=== PATIENT | female | born 1955 ===

== ENCOUNTER 2017-05-21 09:02 | Day surgery (SDC) | payer MEDICARE, OTHER ==
[2017-05-17 09:11] VITALS: BMI 28.1
[2017-05-21] MEDS ORDERED: LIDOCAINE 1% 20 ML VIAL (10MG/ML) FOR IV START INTRADERMA ONE (09:25)
[2017-05-21] MEDS ORDERED: LACTATED RINGERS 1,000 ML IV SCH (09:30)
[2017-05-21 09:44] VITALS: RESP 16; TEMP 98.2
--- NOTE | 2017-05-21 10:14 | P.PCN ---
Date of Procedure: 05/21/17 Preoperative Diagnosis: Postoperative Diagnosis: Procedure(s) Performed: Implants: Surgeon: Alfonso Matias Pathology: none sent Condition: stable Disposition: PACU Indications for Procedure: Operative Findings: Description of Procedure: PREOPERATIVE DIAGNOSIS: 1-rule out multiple sclerosis POSTOPERATIVE DIAGNOSIS: same PROCEDURE 1. Diagnostic lumbar puncture ANESTHESIA: Local with 1% lidocaine; conscious sedation with Versed only EBL: Minimal PROCEDURE INDICATION: The patient with persistent lower extremity weakness due to presumed demyelinating disease who presents for diagnostic LP as ordered by Dr. Hendricks. Patient uses Plavix and cilostazol for PVD, and has been off both for 9 (nine) days. PROCEDURE DESCRIPTION / TECHNIQUE: The patient was seen and identified in the preoperative area. Risks, benefits, complications, and alternatives were discussed with the patient, including but not limited to bleeding, infection, nerve damage, allergic reactions to medications, and spinal headache. The patient agreed to proceed with the procedure and signed the consent after all questions were answered. Vital signs were stable. Patient was taken to the procedure room and time out was completed to confirm patient position, procedure, area of pain, and allergies. The patient was placed in the lateral decubitus (semi-) position on procedure table with help from nursing staff. The lumbosacral area was prepped and draped in the usual sterile fashion. Vital signs were closely monitored during the procedure. After localization with 1% lidocaine, a 22-gauge 3.5-inch spinal needle was placed in the L2-L3 interspace. Stylet was removed and clear cerebrospinal fluid was obtained. 14 ml CSF was removed and put into four tubes. COMPLICATIONS: None COMMENTS: None DISPOSITION / PLANS: The patient was placed in a supine position and transferred to the recovery area in a stable condition for observation. There was no evidence of lower extremity motor or sensory deficit after the procedure. Patient was discharged from the recovery room after meeting discharge criteria. Home discharge instructions were given to the patient by the staff. The patient was reexamined prior to discharge and there were no issues. The patient will follow up with her neurologist as scheduled.
[2017-05-21] MEDS ORDERED: IV FLUID CONTINUATION 1,000 ML IV ONE (10:20)
[2017-05-21 11:06] LABS: Appearance,CSF Clear
[2017-05-21 11:14] LABS: Glucose,CSF 56 mg/dL (40-70)
[2017-05-21 11:58] LABS: ALT 27 U/L (9-52); AST 18 U/L (14-36)
[2017-05-21 11:59] VITALS: BP 157/73; PULSE 72
[2017-05-21 12:01] LABS: Rheumatoid Factor, Qnt <9 IU/mL (<12)
[2017-05-21 15:39] LABS: Treponemal Ab Non-Reactive (Non-Reactive)
[2017-05-21 16:12] LABS: ANA w/Reflex to Titer NEGATIVE (NEGATIVE); RNP AB Interpretation NEGATIVE (NEGATIVE)
[2017-05-22 10:09] LABS: Lyme IgG/IgM Interp NEGATIVE (NEGATIVE)
== END 2017-05-21 12:10 | disposition home or self-care (01) ==
LOC: ORPAIN 09:02
PROVIDERS: ATTEND Anesthesiology
DX: R53.1 Weakness (principal); I73.9 Peripheral vascular disease, unspecified; Z79.02 Long term (current) use of antithrombotics/antiplatelets; Z79.82 Long term (current) use of aspirin; Z79.891 Long term (current) use of opiate analgesic; Z79.899 Other long term (current) drug therapy; Z88.8 Allergy status to other drugs, medicaments and biological substances; Z91.041 Radiographic dye allergy status
CPT/HCPCS: 87476; 86592; 86235 ×3; 84439; 88108; 84157; 82945; 82040; 82042; 82784; 83916; 82164 ×2; 83873; 84443; 84450; 84460; 85730; 86431; 85613; 89050; 86618; 86780; 86038; 86225; 62270; J2250

== ENCOUNTER 2017-12-10 01:24 | Inpatient (IN) | payer MEDICARE ==
[2017-12-10] MEDS ORDERED: SODIUM CHLORIDE 0.9% 1,000 ML IV STA ×2 (01:39→02:07)
[2017-12-10] MEDS ORDERED: HYDROmorphone 0.5 MG/0.5 ML SYRINGE IVP STA (01:39)
[2017-12-10] MEDS ORDERED: ONDANSETRON 4 MG/2 ML VIAL IVP STA (01:39)
[2017-12-10] MEDS ORDERED: PIPERACILLIN-TAZOBACTAM 3.375 GM in DEXTROSE/WATER 1 50ML.BAG IVPB STA (01:43)
[2017-12-10] MEDS ORDERED: ACETAMINOPHEN IV (For NPO) 1,000 MG in EMPTY BAG 1 BAG IVPB STA (01:43)
[2017-12-10] MEDS ORDERED: metroNIDAZOLE-NS PMX 500 MG in SALINE 1 100ML.BAG IVPB STA (01:43)
--- NOTE | 2017-12-10 01:47 | ED ---
General Adult HPI - General Source: patient, family, EMS, RN notes reviewed Mode of arrival: EMS Limitations: no limitations <Gini Webber - Last Filed: 12/10/17 03:01> <Baltazar Cabrera - Last Filed: 12/11/17 03:50> - General Chief complaint: Nausea/Vomiting/Diarrhea Stated complaint: NVD Time Seen by Provider: 12/10/17 01:35 - History of Present Illness Initial comments: 62-year-old female presents to the emergency department with a chief complaint of nausea and vomiting and weakness on the abdomen. She states she's been nausea vomiting for the last 4 days or so. She states that then today she noticed that she started to develop some drainage from the abdomen. She states it's around the surgical incision site. She states it has stool-like smell. She states that she's had multiple surgeries on the abdomen but she does not know where and she does not know her surgeon is. She denies any high fevers at home. She denies any chest pain or shortness of breath. She states she became concerned when the area started to drain so she thought that she should be seen. Patient denies any other areas of concern. She denies any changes in urination. Patient denies any recent fever, chills, shortness of breath, chest pain, back pain, numbness or tingling, dysuria or hematuria, constipation or diarrhea, headaches or visual changes, or any other current symptoms. (Gini Webber) - Related Data Home Medications Medication Instructions Recorded Confirmed Sertraline HCl [Zoloft] 200 mg PO DAILY 10/11/15 12/10/17 Cholecalciferol [Vitamin D3] 2,000 unit PO DAILY 02/07/16 12/10/17 Metoprolol Tartrate [Lopressor] 50 mg PO BID 08/14/16 12/10/17 Cyanocobalamin [Vitamin B-12] 1,000 mcg PO DAILY 08/17/16 12/10/17 Aspirin [Adult Low Dose Aspirin EC] 162 mg PO DAILY 05/17/17 12/10/17 Crestor (Unknown Dose) 1 tab PO QAM 05/17/17 12/10/17 HYDROcodone/APAP 10-325MG [[place] 1 tab PO Q6H PRN 05/17/17 12/10/17 10-325] Clopidogrel [Plavix] 75 mg PO DAILY 05/21/17 12/10/17 Baclofen [Lioresal] 10 mg PO QID PRN 12/10/17 12/10/17 Cetirizine HCl [Zyrtec] 10 mg PO DAILY PRN 12/10/17 12/10/17 Furosemide [Lasix] 40 mg PO DAILY PRN 12/10/17 12/10/17 Losartan Potassium [Cozaar] 100 mg PO DAILY 12/10/17 12/10/17 Pantoprazole Sodium [Protonix] 40 mg PO DAILY 12/10/17 12/10/17 amLODIPine [Norvasc] 2.5 mg PO DAILY 12/10/17 12/10/17 busPIRone HCl [Buspar] 10 mg PO BID 12/10/17 12/10/17 traZODone HCL 150 mg PO HS 12/10/17 12/10/17 Allergies Allergy/AdvReac Type Severity Reaction Status Date / Time Iodinated Contrast- Oral and Allergy Unknown Verified 12/10/17 07:50 IV Dye [Iodinated Contrast Media - IV Dye] bupropion HCl AdvReac Severe SEIZURE Verified 12/10/17 07:50 [From Wellbutrin] liothyronine sodium AdvReac Rapid Verified 12/10/17 07:50 [From Cytomel] Heart Rate prochlorperazine AdvReac TONGUE Verified 12/10/17 07:50 [From Compazine] SWELLING prochlorperazine edisylate AdvReac TONGUE Verified 12/10/17 07:50 [From Compazine] SWELLING prochlorperazine maleate AdvReac TONGUE Verified 12/10/17 07:50 [From Compazine] SWELLING Review of Systems ROS Other: All systems not noted in ROS Statement are negative. <Gini Webber - Last Filed: 12/10/17 03:01> ROS Other: All systems not noted in ROS Statement are negative. <Baltazar Cabrera - Last Filed: 12/11/17 03:50> ROS Statement: Those systems with pertinent positive or pertinent negative responses have been documented in the HPI. Past Medical History Past Medical History: Cancer, Chest Pain / Angina, COPD, Deep Vein Thrombosis ( DVT), Hyperlipidemia, Hypertension, Myocardial Infarction ([place]), Osteoarthritis ( OA), Vascular Disorder Additional Past Medical History / Comment(s): Hx L Breast Ca 2013-had lumpectomy / radiation, abscess in jaw area, had one time seizure yrs. ago related to a drug reaction, DVT 2 yrs. ago R leg, insomnia off and on. Peripheral Vascular Disease. Currently being tested for MS. Last Myocardial Infarction Date:: Jul 2015 History of Any Multi-Drug Resistant Organisms: None Reported Past Surgical History: Bowel Resection, Breast Surgery, Cholecystectomy, Heart Catheterization With Stent, Joint Replacement, Orthopedic Surgery Additional Past Surgical History / Comment(s): 02/24/16 PTCA mid and distal RCA. Other surgical hx: hemicolectomy due to polyp not able to be reached with colonoscopy, total R knee, open surgery to L knee, stent R lower extremity, right baby toe amputated. Past Anesthesia/Blood Transfusion Reactions: No Reported Reaction Additional Past Anesthesia/Blood Transfusion Reaction / Comment(s): States combative when woke up from anesthesia 1-2 X. Date of Last Stent Placement:: Jul 2015 Past Psychological History: Anxiety, Depression Smoking Status: Former smoker Past Alcohol Use History: None Reported Past Drug Use History: None Reported - Past Family History Father Family Medical History: Cancer Additional Family Medical History / Comment(s): Father is alive at age 81 with history of prostate cancer. Mother Family Medical History: Cancer Additional Family Medical History / Comment(s): Mother at age 63 and had multiple myeloma. <Gini Webber - Last Filed: 12/10/17 03:01> General Exam Limitations: no limitations <Gini Webber - Last Filed: 12/10/17 03:01> <Baltazar Cabrera - Last Filed: 12/11/17 03:50> - General Exam Comments Initial Comments: General: The patient is awake and alert, in no distress, and does not appear acutely ill. Eye: Pupils are equal, round. Ears, nose, mouth and throat: There are moist mucous membranes. Neck: The neck is supple, there is no tenderness. Cardiovascular: There is a regular rate and rhythm. No murmur, rub or gallop is appreciated. Respiratory: Lungs are clear to auscultation, respirations are non-labored, breath sounds are equal. No wheezes, stridor, rales, or rhonchi. Gastrointestinal: Distended abdomen that is diffusely tender with an area in the center of this. He appears to be a stool like output. No masses or organomegaly noted. There is no rebound or guarding present. No CVA tenderness. Back: There is no tenderness to palpation in the midline. There is no obvious deformity. No rashes noted. Musculoskeletal: Normal ROM, no tenderness, There is no pedal edema. There is no calf tenderness or swelling. Sensation intact. Pulses equal bilaterally 2+. Neurological: CN II-XII intact, There are no obvious motor or sensory deficits. Coordination appears grossly intact. Speech is normal. Skin: Skin is warm and dry and no rashes or lesions are noted. Psychiatric: Cooperative, appropriate mood & affect, normal judgment. (Gini Webber) Vital Signs 12/10/17 12/10/17 12/10/17 01:27 02:13 03:31 Temperature 100.4 F H 97.1 F L Pulse Rate 74 68 69 Respiratory 18 18 18 Rate Blood Pressure 117/56 128/61 119/57 O2 Sat by Pulse 95 97 97 Oximetry Medical Decision Making - Lab Data Result diagrams: 12/10/17 01:47 12/10/17 01:47 - Radiology Data Radiology results: report reviewed, image reviewed <Gini Webber - Last Filed: 12/10/17 03:01> - Lab Data Result diagrams: 12/10/17 01:47 12/10/17 20:30 <Balatzar Cabrera - Last Filed: 12/11/17 03:50> - Medical Decision Making 62-year-old female presents for nausea vomiting with it draining incision site to the abdomen. Patient is febrile at this time. Tylenol was ordered for the patient's fever. This time blood pressure is stable. Patient was placed on a monitor for continued care. This time CAT scan is reviewed that shows an abdominal wall abscess that does possibly extending into the peritoneal cavity. This time Dr. Betancourt was contacted by Dr. Dallas. At this time patient underwent continued opening of the area with some drainage antibiotics have been initiated. We'll admit the patient for Dr. Betancourt see in the morning. Patient is in agreement with this plan. (Gini Webber) I saw this patient in conjunction with the physician ex assistant/program director. I performed independent history and physical exam. Agree with case management. (Trachy, Baltazar) - Lab Data Lab Results 12/10/17 12/10/17 12/10/17 Range/Units 01:47 01:47 01:47 WBC 9.9 (3.8-10.6) k/uL RBC 4.45 (3.80-5.40) m/uL Hgb 13.9 (11.4-16.0) gm/dL Hct 40.2 (34.0-46.0) % MCV 90.3 (80.0-100.0) fL MCH 31.2 (25.0-35.0) pg MCHC 34.5 (31.0-37.0) g/dL RDW 12.8 (11.5-15.5) % Plt Count 115 L (150-450) k/uL Neutrophils % 86 % Lymphocytes % 6 % Monocytes % 6 % Eosinophils % 0 % Basophils % 0 % Neutrophils # 8.5 H (1.3-7.7) k/uL Lymphocytes # 0.6 L (1.0-4.8) k/uL Monocytes # 0.6 (0-1.0) k/uL Eosinophils # 0.0 (0-0.7) k/uL Basophils # 0.0 (0-0.2) k/uL ESR (0-20) mm/hr PT (9.0-12.0) sec INR (<1.2) APTT (22.0-30.0) sec Sodium 137 (137-145) mmol/L Potassium 3.2 L (3.5-5.1) mmol/L Chloride 101 (98-107) mmol/L Carbon Dioxide 24 (22-30) mmol/L Anion Gap 12 mmol/L BUN 18 H (7-17) mg/dL Creatinine 0.90 (0.52-1.04) mg/dL Est GFR (MDRD) Af Amer >60 (>60 ml/min/1.73 sqM) Est GFR (MDRD) Non-Af >60 (>60 ml/min/1.73 sqM) Glucose 129 H (74-99) mg/dL Plasma Lactic Acid Robert (0.7-2.0) mmol/L Calcium 9.0 (8.4-10.2) mg/dL Total Bilirubin 1.0 (0.2-1.3) mg/dL AST 18 (14-36) U/L ALT 22 (9-52) U/L Alkaline Phosphatase 123 (38-126) U/L Total Protein 6.4 (6.3-8.2) g/dL Albumin 3.2 L (3.5-5.0) g/dL Amylase 32 (30-110) U/L Lipase 87 (23-300) U/L Blood Type O Negative Blood Type Recheck No Antibody Screen NEGATIVE Spec Expiration Date 12/13/2017234612/10/17 12/10/17 12/10/17 Range/Units 01:47 01:47 01:47 WBC (3.8-10.6) k/uL RBC (3.80-5.40) m/uL Hgb (11.4-16.0) gm/dL Hct (34.0-46.0) % MCV (80.0-100.0) fL MCH (25.0-35.0) pg MCHC (31.0-37.0) g/dL RDW (11.5-15.5) % Plt Count (150-450) k/uL Neutrophils % % Lymphocytes % % Monocytes % % Eosinophils % % Basophils % % Neutrophils # (1.3-7.7) k/uL Lymphocytes # (1.0-4.8) k/uL Monocytes # (0-1.0) k/uL Eosinophils # (0-0.7) k/uL Basophils # (0-0.2) k/uL ESR 22 H (0-20) mm/hr PT 11.6 (9.0-12.0) sec INR 1.2 H (<1.2) APTT 22.1 (22.0-30.0) sec Sodium (137-145) mmol/L Potassium (3.5-5.1) mmol/L Chloride (98-107) mmol/L Carbon Dioxide (22-30) mmol/L Anion Gap mmol/L BUN (7-17) mg/dL Creatinine (0.52-1.04) mg/dL Est GFR (MDRD) Af Amer (>60 ml/min/1.73 sqM) Est GFR (MDRD) Non-Af (>60 ml/min/1.73 sqM) Glucose (74-99) mg/dL Plasma Lactic Acid Robert 1.0 (0.7-2.0) mmol/L Calcium (8.4-10.2) mg/dL Total Bilirubin (0.2-1.3) mg/dL AST (14-36) U/L ALT (9-52) U/L Alkaline Phosphatase (38-126) U/L Total Protein (6.3-8.2) g/dL Albumin (3.5-5.0) g/dL Amylase (30-110) U/L Lipase (23-300) U/L Blood Type Blood Type Recheck Antibody Screen Spec Expiration Date Disposition Decision Date: 12/10/17 Decision Time: 03:02 <Gini Webber - Last Filed: 12/10/17 03:01> <Baltazar Cabrera - Last Filed: 12/11/17 03:50> Clinical Impression: Abdominal wall abscess at site of surgical wound, Nausea & vomiting Disposition: ADMITTED IP TO THIS HOSP Condition: Stable
[2017-12-10 02:04] LABS: Basophils % (A) 0 %; Eosinophils % (A) 0 %; HCT 40.2 % (34.0-46.0); HGB 13.9 gm/dL (11.4-16.0); Lymphocytes # (A) 0.6 k/uL (1.0-4.8); Lymphocytes % (A) 6 %; MCH 31.2 pg (25.0-35.0); MCHC 34.5 g/dL (31.0-37.0); MCV 90.3 fL (80.0-100.0); Mean Platelet Volume 7.5; Monocytes # (A) 0.6 k/uL (0-1.0); Monocytes % (A) 6 %; Neutrophils # (A) 8.5 k/uL (1.3-7.7); Neutrophils % (A) 86 %; Platelet Count 115 k/uL (150-450); RBC 4.45 m/uL (3.80-5.40); RDW 12.8 % (11.5-15.5); WBC 9.9 k/uL (3.8-10.6)
[2017-12-10 02:09] LABS: Partial Thromboplastin Time 22.1 sec (22.0-30.0)
[2017-12-10 02:11] LABS: INR 1.2 (<1.2); Prothrombin Time 11.6 sec (9.0-12.0)
[2017-12-10 02:16] LABS: ALT 22 U/L (9-52); AST 18 U/L (14-36); Albumin 3.2 g/dL (3.5-5.0); Alkaline Phosphatase 123 U/L (38-126); Amylase 32 U/L (30-110); Anion Gap 12 mmol/L; Blood Urea Nitrogen 18 mg/dL (7-17); Carbon Dioxide 24 mmol/L (22-30); Chloride 101 mmol/L (98-107); Glucose 129 mg/dL (74-99); Lipase 87 U/L (23-300); Potassium 3.2 mmol/L (3.5-5.1); Sodium 137 mmol/L (137-145); Total Protein 6.4 g/dL (6.3-8.2)
--- NOTE | 2017-12-10 02:17 | CT ---
EXAMINATION TYPE: CT abdomen pelvis wo con DATE OF EXAM: 12/10/2017 COMPARISON: NONE HISTORY: Nausea and vomiting CT DLP: mGycm Automated exposure control for dose reduction was used. TECHNIQUE: Helical acquisition of images was performed from the lung bases through the pelvis. FINDINGS: There is subpleural emphysematous change at the right lung base posteriorly. There is reticular inter stitial density consistent with pulmonary fibrosis in the right lower lobe. There is no pericardial effusion. There is no pleural effusion. There is a small hiatal hernia. There are clips from cholecystectomy. Liver shows no focal defect. Bi le ducts are not dilated. There is no sign of a pancreatic mass. Spleen is slightly enlarged and rehan ures 14 cm. There is no adrenal mass. There is a 4 mm calculus in the interpolar right kidney. Kidneys have turner l size. Ureters are not dilated. There is no hydronephrosis. There is a 4 mm cortical calcification i n the lateral left kidney. There is an elongated 1.5 cm calcification in the lower pole left kidney. There are multiple surgical clips at the cecum. Appendix is not seen. There is no sign of appendiciti s. There is no sign of a bowel obstruction. Bladder distends smoothly. Abdominal aorta is atheromatou s. There is a complex mass associated with the umbilicus. This measures 5 cm x 6 cm and contains air and some fluid. There is fat stranding around the mass. The mass extends from the skin surface to the ab dominal wall. This does not appear to contain any loop of bowel. I see no bony destructive process. T here are spondylotic changes in the lumbar spine. Air bubbles in the umbilical mass extend to below t he anterior abdominal wall.: IMPRESSION: PULMONARY FIBROTIC CHANGES AND EMPHYSEMA AT THE RIGHT LUNG BASE. ATHEROSCLEROTIC VASCULAR DISEASE. MILD SPLENOMEGALY. COMPLEX UMBILICAL MASS CONTAINS AIR AND SOME FLUID AND IS CONSISTENT WITH AN ABSCESS. THERE IS LOCALI ZED AIR WITHIN THE PERITONEAL CAVITY ALONG THE ANTERIOR ABDOMINAL WALL ASSOCIATED WITH THE MASS. BILATERAL NONOBSTRUCTING RENAL CALCULI. SPONDYLOTIC CHANGES IN THE LUMBAR SPINE WITH SOME SPINAL STENOSIS AT L3-4.
[2017-12-10] MEDS ORDERED: POTASSIUM CHLORIDE 20 MEQ in WATER FOR INJECTION 1 100ML.BAG IVPB STA (02:22)
[2017-12-10] MEDS: POTASSIUM CHLORIDE 10 MEQ in WATER FOR INJECTION 1 100ML.BAG IVPB SCH ×2 (02:38→03:45)
[2017-12-10] MEDS ORDERED: ONDANSETRON 4 MG/2 ML VIAL IVP PRN (03:02)
[2017-12-10] MEDS ORDERED: NALOXONE 0.4 MG/ML 1 ML VIAL IV PRN (03:02)
[2017-12-10] MEDS: SODIUM CHLORIDE 0.9% 1,000 ML IV SCH ×3 (03:19→22:35)
--- NOTE | 2017-12-10 03:31 | ED ---
Medical Decision Making - Lab Data Result diagrams: 12/10/17 01:47 12/10/17 01:47 <Gini Webber - Last Filed: 12/10/17 03:30> - Lab Data Result diagrams: 12/10/17 01:47 12/10/17 20:30 <Baltazar Cabrera - Last Filed: 12/11/17 03:51> - Medical Decision Making I saw this patient in conjunction with the physician certified medical assistant. I performed independent history and physical exam. Agree with case management. (Baltazar Cabrera) - Lab Data Lab Results 12/10/17 12/10/17 12/10/17 Range/Units 01:47 01:47 01:47 WBC 9.9 (3.8-10.6) k/uL RBC 4.45 (3.80-5.40) m/uL Hgb 13.9 (11.4-16.0) gm/dL Hct 40.2 (34.0-46.0) % MCV 90.3 (80.0-100.0) fL MCH 31.2 (25.0-35.0) pg MCHC 34.5 (31.0-37.0) g/dL RDW 12.8 (11.5-15.5) % Plt Count 115 L (150-450) k/uL Neutrophils % 86 % Lymphocytes % 6 % Monocytes % 6 % Eosinophils % 0 % Basophils % 0 % Neutrophils # 8.5 H (1.3-7.7) k/uL Lymphocytes # 0.6 L (1.0-4.8) k/uL Monocytes # 0.6 (0-1.0) k/uL Eosinophils # 0.0 (0-0.7) k/uL Basophils # 0.0 (0-0.2) k/uL ESR (0-20) mm/hr PT (9.0-12.0) sec INR (<1.2) APTT (22.0-30.0) sec Sodium 137 (137-145) mmol/L Potassium 3.2 L (3.5-5.1) mmol/L Chloride 101 (98-107) mmol/L Carbon Dioxide 24 (22-30) mmol/L Anion Gap 12 mmol/L BUN 18 H (7-17) mg/dL Creatinine 0.90 (0.52-1.04) mg/dL Est GFR (MDRD) Af Amer >60 (>60 ml/min/1.73 sqM) Est GFR (MDRD) Non-Af >60 (>60 ml/min/1.73 sqM) Glucose 129 H (74-99) mg/dL Plasma Lactic Acid Robert (0.7-2.0) mmol/L Calcium 9.0 (8.4-10.2) mg/dL Total Bilirubin 1.0 (0.2-1.3) mg/dL AST 18 (14-36) U/L ALT 22 (9-52) U/L Alkaline Phosphatase 123 (38-126) U/L Total Protein 6.4 (6.3-8.2) g/dL Albumin 3.2 L (3.5-5.0) g/dL Amylase 32 (30-110) U/L Lipase 87 (23-300) U/L Blood Type O Negative Blood Type Recheck No Antibody Screen NEGATIVE Spec Expiration Date 12/13/2017234612/10/17 12/10/17 12/10/17 Range/Units 01:47 01:47 01:47 WBC (3.8-10.6) k/uL RBC (3.80-5.40) m/uL Hgb (11.4-16.0) gm/dL Hct (34.0-46.0) % MCV (80.0-100.0) fL MCH (25.0-35.0) pg MCHC (31.0-37.0) g/dL RDW (11.5-15.5) % Plt Count (150-450) k/uL Neutrophils % % Lymphocytes % % Monocytes % % Eosinophils % % Basophils % % Neutrophils # (1.3-7.7) k/uL Lymphocytes # (1.0-4.8) k/uL Monocytes # (0-1.0) k/uL Eosinophils # (0-0.7) k/uL Basophils # (0-0.2) k/uL ESR 22 H (0-20) mm/hr PT 11.6 (9.0-12.0) sec INR 1.2 H (<1.2) APTT 22.1 (22.0-30.0) sec Sodium (137-145) mmol/L Potassium (3.5-5.1) mmol/L Chloride (98-107) mmol/L Carbon Dioxide (22-30) mmol/L Anion Gap mmol/L BUN (7-17) mg/dL Creatinine (0.52-1.04) mg/dL Est GFR (MDRD) Af Amer (>60 ml/min/1.73 sqM) Est GFR (MDRD) Non-Af (>60 ml/min/1.73 sqM) Glucose (74-99) mg/dL Plasma Lactic Acid Robert 1.0 (0.7-2.0) mmol/L Calcium (8.4-10.2) mg/dL Total Bilirubin (0.2-1.3) mg/dL AST (14-36) U/L ALT (9-52) U/L Alkaline Phosphatase (38-126) U/L Total Protein (6.3-8.2) g/dL Albumin (3.5-5.0) g/dL Amylase (30-110) U/L Lipase (23-300) U/L Blood Type Blood Type Recheck Antibody Screen Spec Expiration Date Disposition <Gini Webber - Last Filed: 12/10/17 03:30> <Baltazar Cabrera - Last Filed: 12/11/17 03:51> Clinical Impression: Abdominal wall abscess at site of surgical wound, Nausea & vomiting Disposition: ADMITTED IP TO THIS [facility] Condition: Stable Procedures <Gini Webber - Last Filed: 12/10/17 03:30> <Baltazar Cabrera - Last Filed: 12/11/17 03:51> - Procedures Initial comment: Procedure: Incision and drainage The skin overlying the abscess was prepped with Betadine, and anesthetized with 1% lidocaine without epinephrine. A #11 scalpel was then used to incise the abscess. Some purulent material was then extracted from the lesion. Wound culture obtained. 2 a pharyngitis for gauze was packed into the wound. Gauze dressing placed on top, The patient tolerated the procedure well. (Gini Webber)
[2017-12-10 04:20] VITALS: BMI 28.8
[2017-12-10] MEDS: HYDROmorphone 0.5 MG/0.5 ML SYRINGE IVP PRN ×3 (07:13→22:38)
[2017-12-10] MEDS: PANTOPRAZOLE 40 MG/10 ML VIAL IVP SCH (12:40)
[2017-12-10] MEDS: PIPERACILLIN-TAZOBACTAM 3.375 GM in DEXTROSE/WATER 1 50ML.BAG IVPB SCH ×2 (12:42→21:00)
--- NOTE | 2017-12-10 12:57 | P.GSHP ---
History of Present Illness H&P Date: 12/10/17 62-year-old female looking older than stated age presented via the EMS system to the emergency room with a chief complaint of developing abdominal pain with drainage around the umbilicus area with a foul odor. Patient states the abdomen became more distended firm with tenderness surrounding the umbilicus area. Patient stated if she pressed on it would drain secretions that smelled like stool stated the drainage started within 24 hours. Patient stated prior to that she had a nausea sensation with emesis had been ongoing for several days. Patient denied any fever chills denied shortness of breath. Denied any change in bowel habits or difficulty in urinating. Patient states that 15 years ago at [facility] in [place] did undergo a right hemicolectomy was told it was for precancer. No chemo or radiation treatment. One year later developed an incisional hernia which was repaired. Additionally 2013 left breast cancer with lumpectomy receiving radiation treatment.. Other past surgical history includes a cholecystectomy. amputation fifth toe on the right foot Past medical history hyperlipidemia, hypertension, osteoarthritis DVT right lower leg and peripheral vascular disease In the emergency room patient did undergo CAT scan of the abdomen pelvis without contrast it did show in summary a complex mass associated within the umbilicus measuring 5 cm x 6 cm containing air and some fluid. In the emergency room patient did undergo an incision and drainage. Reviewing the procedure note indicated. that Purulent material extracted from the lesion was obtained with iodoform packing applied wound cultures were obtained The packing was removed to inspect the wound about 12 inches were removed with a moderate amount of foul odor noted smelling like stool - Review of Systems Comment: Essentially unremarkable except as mentioned in the present illness Past Medical History Past Medical History: Cancer, Chest Pain / Angina, COPD, Deep Vein Thrombosis ( DVT), Hyperlipidemia, Hypertension, Myocardial Infarction (LA), Osteoarthritis ( OA), Vascular Disorder Additional Past Medical History / Comment(s): Hx L Breast Ca 2013-had lumpectomy / radiation, abscess in jaw area, had one time seizure yrs. ago related to a drug reaction, DVT 2 yrs. ago R leg, insomnia off and on. Peripheral Vascular Disease. Currently being tested for MS. Last Myocardial Infarction Date:: Jul 2015 History of Any Multi-Drug Resistant Organisms: None Reported Past Surgical History: Bowel Resection, Breast Surgery, Cholecystectomy, Heart Catheterization With Stent, Joint Replacement, Orthopedic Surgery Additional Past Surgical History / Comment(s): 02/24/16 PTCA mid and distal RCA. Other surgical hx: hemicolectomy due to polyp not able to be reached with colonoscopy, total R knee, open surgery to L knee, stent R lower extremity, right baby toe amputated. Past Anesthesia/Blood Transfusion Reactions: No Reported Reaction Additional Past Anesthesia/Blood Transfusion Reaction / Comment(s): States combative when woke up from anesthesia 1-2 X. Date of Last Stent Placement:: Jul 2015 Past Psychological History: Anxiety, Depression Additional Psychological History / Comment(s): Pt states her anxiety and depression are stable-takes RXs which help. Pt lives alone. She is independent. She uses no assistive device. She drives. Smoking Status: Former smoker Past Alcohol Use History: None Reported Additional Past Alcohol Use History / Comment(s): Has been a smoker since she was 17 years of age and used to smoke 3-4 packs per day. Pt states she quit smoking 1 month ago . Past Drug Use History: Marijuana - Past Family History Father Family Medical History: Cancer Additional Family Medical History / Comment(s): Father is alive at age 81 with history of prostate cancer. Mother Family Medical History: Cancer Additional Family Medical History / Comment(s): Mother at age 63 and had multiple myeloma. Medications and Allergies Home Medications Medication Instructions Recorded Confirmed Type Sertraline HCl [Zoloft] 200 mg PO DAILY 10/11/15 12/10/17 History Cholecalciferol [Vitamin D3] 2,000 unit PO DAILY 02/07/16 12/10/17 History Metoprolol Tartrate [Lopressor] 50 mg PO BID 08/14/16 12/10/17 History Cyanocobalamin [Vitamin B-12] 1,000 mcg PO DAILY 08/17/16 12/10/17 History Aspirin [Adult Low Dose Aspirin EC] 162 mg PO DAILY 05/17/17 12/10/17 History Crestor (Unknown Dose) 1 tab PO QAM 05/17/17 12/10/17 History HYDROcodone/APAP 10-325MG [[place] 1 tab PO Q6H PRN 05/17/17 12/10/17 History 10-325] Clopidogrel [Plavix] 75 mg PO DAILY 05/21/17 12/10/17 History Baclofen [Lioresal] 10 mg PO QID PRN 12/10/17 12/10/17 History Cetirizine HCl [Zyrtec] 10 mg PO DAILY PRN 12/10/17 12/10/17 History Furosemide [Lasix] 40 mg PO DAILY PRN 12/10/17 12/10/17 History Losartan Potassium [Cozaar] 100 mg PO DAILY 12/10/17 12/10/17 History Pantoprazole Sodium [Protonix] 40 mg PO DAILY 12/10/17 12/10/17 History amLODIPine [Norvasc] 2.5 mg PO DAILY 12/10/17 12/10/17 History busPIRone HCl [Buspar] 10 mg PO BID 12/10/17 12/10/17 History traZODone HCL 150 mg PO HS 12/10/17 12/10/17 History Allergies Allergy/AdvReac Type Severity Reaction Status Date / Time Iodinated Contrast- Oral and Allergy Unknown Verified 12/10/17 07:50 IV Dye [Iodinated Contrast Media - IV Dye] bupropion HCl AdvReac Severe SEIZURE Verified 12/10/17 07:50 [From Wellbutrin] liothyronine sodium AdvReac Rapid Verified 12/10/17 07:50 [From Cytomel] Heart Rate prochlorperazine AdvReac TONGUE Verified 12/10/17 07:50 [From Compazine] SWELLING prochlorperazine edisylate AdvReac TONGUE Verified 12/10/17 07:50 [From Compazine] SWELLING prochlorperazine maleate AdvReac TONGUE Verified 12/10/17 07:50 [From Compazine] SWELLING Surgical - Exam Vital Signs Temp Pulse Resp BP Pulse Ox 100.4 F H 74 18 117/56 95 12/10/17 01:27 12/10/17 01:27 12/10/17 01:27 12/10/17 01:27 12/10/17 01:27 GENERAL APPEARANCE: 62-year-old female patient is alert, oriented x3 , in no acute distress. VITAL SIGNS: Reviewed HEENT: Head is normocephalic and atraumatic. Pupils are equal and reactive. The nares are patent. Oropharynx is clear without lesions. NECK: Supple without lymphadenopathy. Traches midline. HEART: S1, S2. Regular rate and rhythm. No murmur noted denies chest pain LUNGS: No crackles or wheezes are heard. Adequate air movement on room air sats are 97% no cough noted ABDOMEN: Diffuse tenderness across the abdominal wall distended. In the center of the umbilicus open incision from a prior incision and drainage done packing removed odor noted smelt like stool bowel tones noted No peritoneal signs. No palpable organomegaly or masses. Reports no nausea vomiting EXTREMITIES: Normal skin color and turgor. No cyanosis, rash, ulceration, clubbing or edema. Radial pedal pulses are 2/4 bilaterally. NEUROLOGICAL: No focal deficits. Strength and sensation are grossly intact. Results - Labs 12/10/17 01:47 12/10/17 01:47 Abnormal Lab Results - Last 24 Hours (Table) 12/10/17 12/10/17 12/10/17 Range/Units 01:47 01:47 01:47 Plt Count 115 L (150-450) k/uL Neutrophils # 8.5 H (1.3-7.7) k/uL Lymphocytes # 0.6 L (1.0-4.8) k/uL INR 1.2 H (<1.2) Potassium 3.2 L (3.5-5.1) mmol/L BUN 18 H (7-17) mg/dL Glucose 129 H (74-99) mg/dL Albumin 3.2 L (3.5-5.0) g/dL Microbiology - Last 24 Hours (Table) 12/10/17 03:25 Anaerobic Culture - Preliminary Abdomen 12/10/17 03:25 Wound Culture - Preliminary Abdomen Diabetes panel 12/10/17 Range/Units 01:47 Sodium 137 (137-145) mmol/L Potassium 3.2 L (3.5-5.1) mmol/L Chloride 101 (98-107) mmol/L Carbon Dioxide 24 (22-30) mmol/L BUN 18 H (7-17) mg/dL Creatinine 0.90 (0.52-1.04) mg/dL Glucose 129 H (74-99) mg/dL Calcium 9.0 (8.4-10.2) mg/dL AST 18 (14-36) U/L ALT 22 (9-52) U/L Alkaline Phosphatase 123 (38-126) U/L Total Protein 6.4 (6.3-8.2) g/dL Albumin 3.2 L (3.5-5.0) g/dL Calcium panel 12/10/17 Range/Units 01:47 Calcium 9.0 (8.4-10.2) mg/dL Albumin 3.2 L (3.5-5.0) g/dL Pituitary panel 12/10/17 Range/Units 01:47 Sodium 137 (137-145) mmol/L Potassium 3.2 L (3.5-5.1) mmol/L Chloride 101 (98-107) mmol/L Carbon Dioxide 24 (22-30) mmol/L BUN 18 H (7-17) mg/dL Creatinine 0.90 (0.52-1.04) mg/dL Glucose 129 H (74-99) mg/dL Calcium 9.0 (8.4-10.2) mg/dL Adrenal panel 12/10/17 Range/Units 01:47 Sodium 137 (137-145) mmol/L Potassium 3.2 L (3.5-5.1) mmol/L Chloride 101 (98-107) mmol/L Carbon Dioxide 24 (22-30) mmol/L BUN 18 H (7-17) mg/dL Creatinine 0.90 (0.52-1.04) mg/dL Glucose 129 H (74-99) mg/dL Calcium 9.0 (8.4-10.2) mg/dL Total Bilirubin 1.0 (0.2-1.3) mg/dL AST 18 (14-36) U/L ALT 22 (9-52) U/L Alkaline Phosphatase 123 (38-126) U/L Total Protein 6.4 (6.3-8.2) g/dL Albumin 3.2 L (3.5-5.0) g/dL Assessment and Plan Assessment: Impression Present on admission abdominal pain nausea vomiting febrile suspect due to abdominal abscess CAT scan abdomen and pelvis shows abdominal wall abscess possibly extending into peritoneal cavity Status post incision and drainage with wound cultures obtained in the emergency room from the abdominal wall abscess History of a right colectomy 15 years prior Present on admission mild leukocytosis suspect reactive Present on admission hypokalemia History of left breast cancer with a lumpectomy [address] cherry will review the CAT scan to make a decision whether the patient will need a surgical approach to address the abscess or conservative management keeping patient nothing by mouth with TPN for nutritional support Consult infectious disease recommendations IV antibiotic Follow-up on pending wound cultures Pain control DVT and GI prophylaxis Potassium to be replaced Repeat labs in the morning Consult medical service for medical management Further surgical recommendations pending Surgical consultation note dictated for Dr. Cherry The above impression and plan of care have been discussed and directed by signing physician. Marina Simeon nurse practitioner acting as scribe for signing physician.
[2017-12-10] MEDS ORDERED: ENALAPRILAT 1.25 MG/ML 1 ML VIAL IVP PRN (13:35)
--- NOTE | 2017-12-10 13:41 | P.CONS ---
History of Present Illness - Reason for Consult Consult date: 12/10/17 Medical management - History of Present Illness This is a 62-year-old female patient of Dr. 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 Patient recently quit smoking in October of this year. Her last admission was in July 2016 which time she was treated for infection of the right fifth toe status post amputation. Patient states for the last 4 days she has been having dry heaves and unable to keep anything down and at the same time developed abdominal pain which was generalized with tenderness. She states yesterday she had an area that popped open and had brownish greenish drainage in the mid abdominal area. She has also had diarrhea of watery-type for a few days but was with normal color and no blood. Her last meal was at least a week ago. She does have history of a right hemicolectomy for [place] lesion 10 -15 years ago. There was no chemotherapy given at that time. She apparently had a hernia repair done one year later but otherwise no recent abdominal surgeries. Patient presented to [facility] emergency center for evaluation. Temperature max is 100.4. Vital signs were stable. CT of the abdomen and pelvis revealed pulmonary fibrotic changes and emphysema at the right lung base. Atherosclerotic vascular disease. Mild splenomegaly. Complex umbilical mass contained air and some fluid and is consistent with an abscess. There is localized air within the peritoneum cavity along the anterior abdominal wall associated with the mass. Bilateral nonobstructing renal calculi. Spondylotic changes in the lumbar spine with stenosis at L3 4. She underwent an I&D in the emergency center with return of purulent material, wound culture was obtained and the wound was packed. Patient was admitted to the hospital under general surgery and started on Flagyl and Zosyn. Noted the patient has extreme weakness to her lower extremities. She normally walks with a walker for the past year. She also admits to short-term memory loss but she has never been told she has dementia. She has a niece that helps her make decisions that is not listed on her demographic page. Case management to follow -up. Review of Systems All systems: negative Constitutional: Reports anorexia, Reports poor appetite, Reports weakness, Reports weight loss, Denies chills, Denies fatigue, Denies fever Eyes: denies blurred vision, denies pain Ears, nose, mouth and throat: Denies dysphagia, Denies headache, Denies sore throat Cardiovascular: Denies chest pain, Denies decreased exercise tolerance, Denies dyspnea on exertion, Denies edema, Denies leg edema, Denies lightheadedness, Denies shortness of breath, Denies syncope Respiratory: Denies congestion, Denies cough, Denies cough with sputum, Denies dyspnea, Denies excessive sputum, Denies hemoptysis, Denies home oxygen, Denies wheezing Gastrointestinal: Reports abdominal pain, Reports bloating, Reports diarrhea, Reports loss of appetite, Reports nausea, Reports vomiting, Denies melena Genitourinary: Denies dysuria, Denies hematuria Musculoskeletal: Reports gait dysfunction, Reports muscle weakness, Denies myalgias Integumentary: Reports wounds, Denies pruritus, Denies rash Neurological: Denies numbness, Denies weakness Psychiatric: Denies anxiety, Denies depression Endocrine: Denies fatigue, Denies weight change Past Medical History Past Medical History: Cancer, Chest Pain / Angina, COPD, Deep Vein Thrombosis ( DVT), Hyperlipidemia, Hypertension, Myocardial Infarction (NH), Osteoarthritis ( OA), Vascular Disorder Additional Past Medical History / Comment(s): Hx L Breast Ca 2013-had lumpectomy / radiation, abscess in jaw area, had one time seizure yrs. ago related to a drug reaction, DVT 2 yrs. ago R leg, insomnia off and on. Peripheral Vascular Disease. Currently being tested for MS. Last Myocardial Infarction Date:: Jul 2015 History of Any Multi-Drug Resistant Organisms: None Reported Past Surgical History: Bowel Resection, Breast Surgery, Cholecystectomy, Heart Catheterization With Stent, Joint Replacement, Orthopedic Surgery Additional Past Surgical History / Comment(s): 02/24/16 PTCA mid and distal RCA. Other surgical hx: hemicolectomy due to polyp not able to be reached with colonoscopy, total R knee, open surgery to L knee, stent R lower extremity, right baby toe amputated. Past Anesthesia/Blood Transfusion Reactions: No Reported Reaction Additional Past Anesthesia/Blood Transfusion Reaction / Comm: States combative when woke up from anesthesia 1-2 X. Date of Last Stent Placement:: Jul 2015 Past Psychological History: Anxiety, Depression Additional Psychological History / Comment(s): Pt states her anxiety and depression are stable-takes RXs which help. Pt lives alone. She is independent. She uses no assistive device. She drives. Smoking Status: Former smoker Past Alcohol Use History: None Reported Additional Past Alcohol Use History / Comment(s): Has been a smoker since she was 17 years of age and used to smoke 3-4 packs per day. Pt states she quit smoking 1 month ago . She was at home and has a roommate that performs [employer] and grocery shops for her. She uses a walker for ambulation. Past Drug Use History: Marijuana - Past Family History Father Family Medical History: Cancer Additional Family Medical History / Comment(s): Father is alive at age 81 with history of prostate cancer. Mother Family Medical History: Cancer Additional Family Medical History / Comment(s): Mother at age 63 and had multiple myeloma. Medications and Allergies Home Medications Medication Instructions Recorded Confirmed Type Sertraline HCl [Zoloft] 200 mg PO DAILY 10/11/15 12/10/17 History Cholecalciferol [Vitamin D3] 2,000 unit PO DAILY 02/07/16 12/10/17 History Metoprolol Tartrate [Lopressor] 50 mg PO BID 08/14/16 12/10/17 History Cyanocobalamin [Vitamin B-12] 1,000 mcg PO DAILY 08/17/16 12/10/17 History Aspirin [Adult Low Dose Aspirin EC] 162 mg PO DAILY 05/17/17 12/10/17 History Crestor (Unknown Dose) 1 tab PO QAM 05/17/17 12/10/17 History HYDROcodone/APAP 10-325MG [[place] 1 tab PO Q6H PRN 05/17/17 12/10/17 History 10-325] Clopidogrel [Plavix] 75 mg PO DAILY 05/21/17 12/10/17 History Baclofen [Lioresal] 10 mg PO QID PRN 12/10/17 12/10/17 History Cetirizine HCl [Zyrtec] 10 mg PO DAILY PRN 12/10/17 12/10/17 History Furosemide [Lasix] 40 mg PO DAILY PRN 12/10/17 12/10/17 History Losartan Potassium [Cozaar] 100 mg PO DAILY 12/10/17 12/10/17 History Pantoprazole Sodium [Protonix] 40 mg PO DAILY 12/10/17 12/10/17 History amLODIPine [Norvasc] 2.5 mg PO DAILY 12/10/17 12/10/17 History busPIRone HCl [Buspar] 10 mg PO BID 12/10/17 12/10/17 History traZODone HCL 150 mg PO HS 12/10/17 12/10/17 History Allergies Allergy/AdvReac Type Severity Reaction Status Date / Time Iodinated Contrast- Oral and Allergy Unknown Verified 12/10/17 07:50 IV Dye [Iodinated Contrast Media - IV Dye] bupropion HCl AdvReac Severe SEIZURE Verified 12/10/17 07:50 [From Wellbutrin] liothyronine sodium AdvReac Rapid Verified 12/10/17 07:50 [From Cytomel] Heart Rate prochlorperazine AdvReac TONGUE Verified 12/10/17 07:50 [From Compazine] SWELLING prochlorperazine edisylate AdvReac TONGUE Verified 12/10/17 07:50 [From Compazine] SWELLING prochlorperazine maleate AdvReac TONGUE Verified 12/10/17 07:50 [From Compazine] SWELLING Physical Exam Vitals: Vital Signs Temp Pulse Pulse Resp BP BP Pulse Ox 12/10/17 12:00 69 16 140/64 95 12/10/17 08:00 18 12/10/17 04:02 97.9 F 70 18 120/57 97 12/10/17 03:31 97.1 F L 69 18 119/57 97 12/10/17 02:13 68 18 128/61 97 12/10/17 01:27 100.4 F H 74 18 117/56 95 Intake and Output 12/09/17 12/10/17 12/10/17 22:59 06:59 14:59 Other: Voiding Method Diaper Diaper Weight 86.183 kg - Constitutional General appearance: average body habitus, no acute distress - EENT Eyes: PERRLA ENT: normal oropharynx Ears: bilateral: normal - Neck Neck: no lymphadenopathy, normal ROM, no rigidity, no stridor, no thyromegaly - Respiratory Respiratory: bilateral: CTA, diminished, negative: rales, rhonchi, wheezing, prolonged expiration - Cardiovascular Rhythm: regular Heart sounds: normal: S1, S2 Abnormal Heart Sounds: no systolic murmur, no diastolic murmur - Gastrointestinal General gastrointestinal: distended, no hepatomegaly, normal bowel sounds, no organomegaly, tenderness Localized gastrointestinal: tender: diffuse - Integumentary Integumentary: normal - Neurologic Neurologic: CNII-XII intact - Musculoskeletal Musculoskeletal: generalized weakness - Psychiatric Psychiatric: A&O x's 3 Results CBC & Chem 7: 12/10/17 01:47 12/10/17 01:47 Labs: Abnormal Lab Results - Last 24 Hours (Table) 12/10/17 12/10/17 12/10/17 Range/Units 01:47 01:47 01:47 Plt Count 115 L (150-450) k/uL Neutrophils # 8.5 H (1.3-7.7) k/uL Lymphocytes # 0.6 L (1.0-4.8) k/uL INR 1.2 H (<1.2) Potassium 3.2 L (3.5-5.1) mmol/L BUN 18 H (7-17) mg/dL Glucose 129 H (74-99) mg/dL Albumin 3.2 L (3.5-5.0) g/dL Microbiology - Last 24 Hours (Table) 12/10/17 03:25 Anaerobic Culture - Preliminary Abdomen 12/10/17 03:25 Wound Culture - Preliminary Abdomen Assessment and Plan Plan: 1. Abdominal abscess. Consult with Dr. Grimes. Patient is currently on Flagyl and Zosyn. Wound culture and blood culture are in process. Patient is status post I&D done in the emergency center. Patient may require further intervention. Patient is currently nothing by mouth. 2. History of severe peripheral vascular disease status post stent, amputation of the right fifth toe, stable. Patient is normally on Plavix and aspirin 162 mg daily. 3. History of right colectomy 15 years ago at [facility]. 4. Known history of CAD January 2016, status post stent. Patient is usually on Lopressor 50 mg twice daily, Cozaar 100 mg daily, Lasix 40 mg daily as needed, Plavix, baby aspirin, Norvasc. 5. Breast cancer March 2013, status post lumpectomy. 6. Chronic tobacco dependency--quit in October 2017. 7. Hypertension. Patient is usually on Lopressor 50 mg twice daily, Cozaar 100 mg daily, Lasix 40 mg daily as needed, Norvasc. Patient will be placed on Vasotec IV as needed for systolic blood pressure greater than 160. 8. Recurrent depression. Patient is on BuSpar 10 mg twice daily and Zoloft 200 mg daily, trazodone 150 mg at bedtime. Medications on hold 9. History of CVA with short-term memory deficit and possible vascular dementia not previously diagnosed. 10. Peripheral artery disease currently on Plavix and aspirin. 11. Hypokalemia status post replacement. Discharge plan: To be determined. Patient has been at [facility] in the past. Patient will need PT OT evaluation. Impression and plan of care have been directed as dictated by the signing physician. Lucy Wetzel nurse practitioner acting as scribe for signing physician.
--- NOTE | 2017-12-10 14:15 | P.CONS ---
History of Present Illness - Reason for Consult Consult date: 12/10/17 Antibiotic recommendations, abdominal wound - History of Present Illness This is a 62-year-old female. She is well-known to ID service as she was seen last in September 2015 for lumbar pain and was treated for acute discitis of the L4-L5 with IV antibiotics in the form of vancomycin, and the wound center for a right fifth toe wound status post admission in August 2016 and amputation was done by Dr. Crisostomo. Patient states for the last 4 days she has been having dry heaves and unable to keep anything down and at the same time developed abdominal pain which was generalized with tenderness. She states yesterday she had an area that popped open and had brownish greenish drainage in the mid abdominal area. She has also had diarrhea of watery-type for a few days but was with normal color and no blood. Her last meal was at least a week ago. She does have history of a right hemicolectomy for [place] dancers lesion 10-15 years ago. There was no chemotherapy given at that time. She apparently had a hernia repair done one year later but otherwise no recent abdominal surgeries. Patient presented to [facility] emergency center for evaluation. Temperature max is 100.4. Vital signs were stable. CT of the abdomen and pelvis revealed pulmonary fibrotic changes and emphysema at the right lung base. Atherosclerotic vascular disease. Mild splenomegaly. Complex umbilical mass contained air and some fluid and is consistent with an abscess. There is localized air within the peritoneum cavity along the anterior abdominal wall associated with the mass. Bilateral nonobstructing renal calculi. Spondylotic changes in the lumbar spine with stenosis at L3 4. She underwent an I&D in the emergency center with return of purulent material, wound culture was obtained and the wound was packed. Patient was admitted to the hospital under general surgery and started on Flagyl and Zosyn. Review of Systems All systems: negative Constitutional: Reports anorexia, Reports poor appetite, Reports weakness, Reports weight loss, Denies chills, Denies fever Eyes: denies blurred vision, denies pain Ears, nose, mouth and throat: Denies headache, Denies sore throat Cardiovascular: Denies chest pain, Denies decreased exercise tolerance, Denies dyspnea on exertion, Denies edema, Denies leg edema, Denies lightheadedness, Denies shortness of breath, Denies syncope Respiratory: Denies cough, Denies cough with sputum, Denies dyspnea, Denies excessive sputum, Denies hemoptysis, Denies home oxygen, Denies wheezing Gastrointestinal: Reports abdominal pain, Reports bloating, Reports diarrhea, Reports loss of appetite, Reports nausea, Reports vomiting, Denies melena Genitourinary: Denies dysuria, Denies hematuria Musculoskeletal: Reports gait dysfunction, Reports muscle weakness, Denies myalgias Integumentary: Reports wounds, Denies pruritus, Denies rash Neurological: Denies numbness, Denies weakness Psychiatric: Denies anxiety, Denies depression Endocrine: Denies fatigue, Denies weight change Past Medical History Past Medical History: Cancer, Chest Pain / Angina, COPD, Deep Vein Thrombosis ( DVT), Hyperlipidemia, Hypertension, Myocardial Infarction (NE), Osteoarthritis ( OA), Vascular Disorder Additional Past Medical History / Comment(s): Hx L Breast Ca 2013-had lumpectomy / radiation, abscess in jaw area, had one time seizure yrs. ago related to a drug reaction, DVT 2 yrs. ago R leg, insomnia off and on. Peripheral Vascular Disease. Currently being tested for MS. Last Myocardial Infarction Date:: Jul 2015 History of Any Multi-Drug Resistant Organisms: None Reported Past Surgical History: Bowel Resection, Breast Surgery, Cholecystectomy, Heart Catheterization With Stent, Joint Replacement, Orthopedic Surgery Additional Past Surgical History / Comment(s): 02/24/16 PTCA mid and distal RCA. Other surgical hx: hemicolectomy due to polyp not able to be reached with colonoscopy, total R knee, open surgery to L knee, stent R lower extremity, right baby toe amputated. Past Anesthesia/Blood Transfusion Reactions: No Reported Reaction Additional Past Anesthesia/Blood Transfusion Reaction / Comm: States combative when woke up from anesthesia 1-2 X. Date of Last Stent Placement:: Jul 2015 Past Psychological History: Anxiety, Depression Additional Psychological History / Comment(s): Pt states her anxiety and depression are stable-takes RXs which help. Pt lives alone. She is independent. She uses no assistive device. She drives. Smoking Status: Former smoker Past Alcohol Use History: None Reported Additional Past Alcohol Use History / Comment(s): Has been a smoker since she was 17 years of age and used to smoke 3-4 packs per day. Pt states she quit smoking 1 month ago -2017. She was at home and has a roommate that performs [employer] and grocery shops for her. She uses a walker for ambulation. Past Drug Use History: Marijuana - Past Family History Father Family Medical History: Cancer Additional Family Medical History / Comment(s): Father is alive at age 81 with history of prostate cancer. Mother Family Medical History: Cancer Additional Family Medical History / Comment(s): Mother at age 63 and had multiple myeloma. Medications and Allergies Home Medications Medication Instructions Recorded Confirmed Type Sertraline HCl [Zoloft] 200 mg PO DAILY 10/11/15 12/10/17 History Cholecalciferol [Vitamin D3] 2,000 unit PO DAILY 02/07/16 12/10/17 History Metoprolol Tartrate [Lopressor] 50 mg PO BID 08/14/16 12/10/17 History Cyanocobalamin [Vitamin B-12] 1,000 mcg PO DAILY 08/17/16 12/10/17 History Aspirin [Adult Low Dose Aspirin EC] 162 mg PO DAILY 05/17/17 12/10/17 History Crestor (Unknown Dose) 1 tab PO QAM 05/17/17 12/10/17 History HYDROcodone/APAP 10-325MG [[place] 1 tab PO Q6H PRN 05/17/17 12/10/17 History 10-325] Clopidogrel [Plavix] 75 mg PO DAILY 05/21/17 12/10/17 History Baclofen [Lioresal] 10 mg PO QID PRN 12/10/17 12/10/17 History Cetirizine HCl [Zyrtec] 10 mg PO DAILY PRN 12/10/17 12/10/17 History Furosemide [Lasix] 40 mg PO DAILY PRN 12/10/17 12/10/17 History Losartan Potassium [Cozaar] 100 mg PO DAILY 12/10/17 12/10/17 History Pantoprazole Sodium [Protonix] 40 mg PO DAILY 12/10/17 12/10/17 History amLODIPine [Norvasc] 2.5 mg PO DAILY 12/10/17 12/10/17 History busPIRone HCl [Buspar] 10 mg PO BID 12/10/17 12/10/17 History traZODone HCL 150 mg PO HS 12/10/17 12/10/17 History Allergies Allergy/AdvReac Type Severity Reaction Status Date / Time Iodinated Contrast- Oral and Allergy Unknown Verified 12/10/17 07:50 IV Dye [Iodinated Contrast Media - IV Dye] bupropion HCl AdvReac Severe SEIZURE Verified 12/10/17 07:50 [From Wellbutrin] liothyronine sodium AdvReac Rapid Verified 12/10/17 07:50 [From Cytomel] Heart Rate prochlorperazine AdvReac TONGUE Verified 12/10/17 07:50 [From Compazine] SWELLING prochlorperazine edisylate AdvReac TONGUE Verified 12/10/17 07:50 [From Compazine] SWELLING prochlorperazine maleate AdvReac TONGUE Verified 12/10/17 07:50 [From Compazine] SWELLING Physical Exam Vitals: Vital Signs Temp Pulse Pulse Resp BP BP Pulse Ox 12/10/17 12:00 69 16 140/64 95 12/10/17 08:00 18 12/10/17 04:02 97.9 F 70 18 120/57 97 12/10/17 03:31 97.1 F L 69 18 119/57 97 12/10/17 02:13 68 18 128/61 97 12/10/17 01:27 100.4 F H 74 18 117/56 95 Intake and Output 12/09/17 12/10/17 12/10/17 22:59 06:59 14:59 Other: Voiding Method Diaper Diaper Weight 86.183 kg General appearance: average body habitus, no acute distress - EENT Eyes: PERRLA ENT: normal oropharynx Ears: bilateral: normal - Neck Neck: no lymphadenopathy, normal ROM, no rigidity, no stridor, no thyromegaly - Respiratory Respiratory: bilateral: CTA, diminished, negative: rales, rhonchi, wheezing, prolonged expiration - Cardiovascular Rhythm: regular Heart sounds: normal: S1, S2 Abnormal Heart Sounds: no systolic murmur, no diastolic murmur - Gastrointestinal General gastrointestinal: distended, no hepatomegaly, normal bowel sounds, no organomegaly, tenderness, wound noted to the mid abdomen with small amount of drainage and very foul order. Localized gastrointestinal: tender: diffuse - Integumentary Integumentary: normal - Neurologic Neurologic: CNII-XII intact - Musculoskeletal Musculoskeletal: generalized weakness - Psychiatric Psychiatric: A&O x's 3, short-term memory loss. Results Results: Laboratory Results WBC 9.9 k/uL (3.8-10.6) 12/10/17 01:47 RBC 4.45 m/uL (3.80-5.40) 12/10/17 01:47 Hgb 13.9 gm/dL (11.4-16.0) 12/10/17 01:47 Hct 40.2 % (34.0-46.0) 12/10/17 01:47 MCV 90.3 fL (80.0-100.0) 12/10/17 01:47 MCH 31.2 pg (25.0-35.0) 12/10/17 01:47 MCHC 34.5 g/dL (31.0-37.0) 12/10/17 01:47 RDW 12.8 % (11.5-15.5) 12/10/17 01:47 Plt Count 115 k/uL (150-450) L 12/10/17 01:47 Neutrophils % 86 % 12/10/17 01:47 Lymphocytes % 6 % 12/10/17 01:47 Monocytes % 6 % 12/10/17 01:47 Eosinophils % 0 % 12/10/17 01:47 Basophils % 0 % 12/10/17 01:47 Neutrophils # 8.5 k/uL (1.3-7.7) H 12/10/17 01:47 Lymphocytes # 0.6 k/uL (1.0-4.8) L 12/10/17 01:47 Monocytes # 0.6 k/uL (0-1.0) 12/10/17 01:47 Eosinophils # 0.0 k/uL (0-0.7) 12/10/17 01:47 Basophils # 0.0 k/uL (0-0.2) 12/10/17 01:47 PT 11.6 sec (9.0-12.0) 12/10/17 01:47 INR 1.2 (<1.2) H 12/10/17 01:47 APTT 22.1 sec (22.0-30.0) 12/10/17 01:47 Sodium 137 mmol/L (137-145) 12/10/17 01:47 Potassium 3.2 mmol/L (3.5-5.1) L 12/10/17 01:47 Chloride 101 mmol/L (98-107) 12/10/17 01:47 Carbon Dioxide 24 mmol/L (22-30) 12/10/17 01:47 Anion Gap 12 mmol/L 12/10/17 01:47 BUN 18 mg/dL (7-17) H 12/10/17 01:47 Creatinine 0.90 mg/dL (0.52-1.04) 12/10/17 01:47 Est GFR (MDRD) Af Amer >60 (>60 ml/min/1.73 sqM) 12/10/17 01:47 Est GFR (MDRD) Non-Af >60 (>60 ml/min/1.73 sqM) 12/10/17 01:47 Glucose 129 mg/dL (74-99) H 12/10/17 01:47 Plasma Lactic Acid Robert 1.0 mmol/L (0.7-2.0) 12/10/17 01:47 Calcium 9.0 mg/dL (8.4-10.2) 12/10/17 01:47 Total Bilirubin 1.0 mg/dL (0.2-1.3) 12/10/17 01:47 AST 18 U/L (14-36) 12/10/17 01:47 ALT 22 U/L (9-52) 12/10/17 01:47 Alkaline Phosphatase 123 U/L (38-126) 12/10/17 01:47 Total Protein 6.4 g/dL (6.3-8.2) 12/10/17 01:47 Albumin 3.2 g/dL (3.5-5.0) L 12/10/17 01:47 Amylase 32 U/L (30-110) 12/10/17 01:47 Lipase 87 U/L (23-300) 12/10/17 01:47 Blood Type O Negative 12/10/17 01:47 Blood Type Recheck No 12/10/17 01:47 Antibody Screen NEGATIVE 12/10/17 01:47 Spec Expiration Date 12/13/2017234612/10/17 01:47 CBC & Chem 7: 12/10/17 01:47 12/10/17 01:47 Labs: Abnormal Lab Results - Last 24 Hours (Table) 12/10/17 12/10/17 12/10/17 Range/Units 01:47 01:47 01:47 Plt Count 115 L (150-450) k/uL Neutrophils # 8.5 H (1.3-7.7) k/uL Lymphocytes # 0.6 L (1.0-4.8) k/uL INR 1.2 H (<1.2) Potassium 3.2 L (3.5-5.1) mmol/L BUN 18 H (7-17) mg/dL Glucose 129 H (74-99) mg/dL Albumin 3.2 L (3.5-5.0) g/dL Microbiology - Last 24 Hours (Table) 12/10/17 03:25 Anaerobic Culture - Preliminary Abdomen 12/10/17 03:25 Wound Culture - Preliminary Abdomen Assessment and Plan Plan: This is a 62-year-old female who presented to the hospital with abdominal wound and abscess and possible fistula. Patient is under the care of general surgery. She is status post I&D done in the emergency center and wound cultures, blood cultures in progress. She is currently on Zosyn and Flagyl. Continue supportive care. Further recommendations as patient progresses. The above dictated assessment and findings were discussed with Dr. Booker. The impression and plan of care have been directed as dictated. Lucy Wetzel nurse practitioner acting as scribe for Dr. Booker.
[2017-12-10] MEDS: HEPARIN SODIUM,PORCINE 5,000 UNIT/ML 1 ML VIAL SQ SCH (16:41)
[2017-12-10] MEDS: POTASSIUM CHLORIDE ER 20 MEQ TAB.ER PO SCH ×2 (16:42→22:35)
[2017-12-10] MEDS: metroNIDAZOLE-NS PMX 500 MG in SALINE 1 100ML.BAG IVPB SCH (16:42)
[2017-12-10 20:59] LABS: Anion Gap 9 mmol/L; Blood Urea Nitrogen 14 mg/dL (7-17); Calcium 8.7 mg/dL (8.4-10.2); Carbon Dioxide 25 mmol/L (22-30); Chloride 108 mmol/L (98-107); Glucose 81 mg/dL (74-99); Potassium 3.4 mmol/L (3.5-5.1); Sodium 142 mmol/L (137-145)
[2017-12-10] MEDS: BACLOFEN 10 MG TAB PO PRN (21:06)
--- NOTE | 2017-12-10 22:31 | P.CON ---
Consult Note - . Consult date: 12/10/17 Assessment/Plan:: This is a 62-year-old female. She is well-known to ID service as she was seen last in September 2015 for lumbar pain and was treated for acute discitis of the L4-L5 with IV antibiotics in the form of vancomycin, and the wound center for a right fifth toe wound status post admission in August 2016 and amputation was done by Dr. Crisostomo. Patient states for the last 4 days she has been having dry heaves and unable to keep anything down and at the same time developed abdominal pain which was generalized with tenderness. She states yesterday she had an area that popped open and had brownish greenish drainage in the mid abdominal area. She has also had diarrhea of watery-type for a few days but was with normal color and no blood. Her last meal was at about a week ago. She does have history of a right hemicolectomy for lesion 10 -15 years ago. There was no chemotherapy given at that time. She apparently had a hernia repair done one year later but otherwise no recent abdominal surgeries. Patient presented to [facility] emergency center for evaluation. Temperature max is 100.4. Vital signs were stable. CT of the abdomen and pelvis revealed pulmonary fibrotic changes and emphysema at the right lung base. Atherosclerotic vascular disease. Mild splenomegaly. Complex umbilical mass contained air and some fluid and is consistent with an abscess. There is localized air within the peritoneum cavity along the anterior abdominal wall associated with the mass. Bilateral nonobstructing renal calculi. Spondylotic changes in the lumbar spine with stenosis at L3 4. She underwent an I&D in the emergency center with return of purulent material, wound culture was obtained and the wound was packed. Patient was admitted to the hospital under general surgery and started on Flagyl and Zosyn. Please see the consult note is dictated by nurse practitioner Lucy Rashard. Patient relates as noted she was doing relatively well when she had the sudden upper abdominal pain near the midline incision of her prior extensive surgery. She then suddenly had an extensive amount of drainage that was foul purulent in nature. The drainage did not help her feel much better, because of this she then sought care at the hospital. She's not been seen by surgery. The site is being packed and dressings for drainage. Antimicrobial therapy for anaerobic bacteria and gram-negative organisms, she does not have a history of MRSA. We' ll be able to further direct wound therapy when she's had more definitive surgical intervention. Might be a candidate for a wound VAC once infection is improved. I agree with evaluation, assessment and plan a 60 [facility] practitioner Sharath Luyc Rashard.
[2017-12-11] MEDS: SODIUM CHLORIDE 0.9% 1,000 ML IV SCH ×5 (00:20→12:15)
[2017-12-11] MEDS: metroNIDAZOLE-NS PMX 500 MG in SALINE 1 100ML.BAG IVPB SCH ×3 (00:25→16:53)
[2017-12-11] MEDS: BACLOFEN 10 MG TAB PO PRN ×2 (00:53→16:11)
[2017-12-11] MEDS: HYDROmorphone 0.5 MG/0.5 ML SYRINGE IVP PRN ×5 (01:29→16:10)
[2017-12-11] MEDS: HEPARIN SODIUM,PORCINE 5,000 UNIT/ML 1 ML VIAL SQ SCH ×3 (01:30→15:35)
[2017-12-11] MEDS: PIPERACILLIN-TAZOBACTAM 3.375 GM in DEXTROSE/WATER 1 50ML.BAG IVPB SCH ×3 (04:39→20:36)
[2017-12-11 09:20] LABS: ALT 20 U/L (9-52); AST 22 U/L (14-36); Alkaline Phosphatase 120 U/L (38-126); Anion Gap 16 mmol/L; Blood Urea Nitrogen 12 mg/dL (7-17); Calcium 8.8 mg/dL (8.4-10.2); Carbon Dioxide 20 mmol/L (22-30); Chloride 105 mmol/L (98-107); Glucose 68 mg/dL (74-99); Potassium 3.9 mmol/L (3.5-5.1); Sodium 141 mmol/L (137-145); Total Bilirubin 0.8 mg/dL (0.2-1.3)
[2017-12-11] MEDS: PANTOPRAZOLE 40 MG/10 ML VIAL IVP SCH (09:23)
[2017-12-11] MEDS: MULTIVITAMINS, THERA 1 EACH TAB PO SCH (09:24)
[2017-12-11 10:27] LABS: Basophils # (A) 0.1 k/uL (0-0.2); Basophils % (A) 1 %; Eosinophils # (A) 0.1 k/uL (0-0.7); Eosinophils % (A) 2 %; HCT 42.3 % (34.0-46.0); HGB 13.2 gm/dL (11.4-16.0); Hypochromasia Slight; Lymphocytes # (A) 0.6 k/uL (1.0-4.8); Lymphocytes % (A) 11 %; MCH 30.8 pg (25.0-35.0); MCHC 31.2 g/dL (31.0-37.0); Mean Platelet Volume 8.3; Monocytes # (A) 0.3 k/uL (0-1.0); Monocytes % (A) 5 %; Neutrophils # (A) 4.4 k/uL (1.3-7.7); Neutrophils % (A) 80 %; Platelet Count 116 k/uL (150-450); RBC 4.29 m/uL (3.80-5.40); RDW 12.8 % (11.5-15.5); WBC 5.5 k/uL (3.8-10.6)
[2017-12-11 10:32] LABS: MCV 98.6 fL (80.0-100.0)
[2017-12-11] MEDS ORDERED: BACLOFEN 10 MG TAB PO PRN (13:39)
--- NOTE | 2017-12-11 13:46 | P.PN ---
Subjective Progress Note Date: 12/11/17 This is a 62-year-old female patient of Dr. 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 Patient recently quit smoking in October of this year. Her last admission was in July 2016 which time she was treated for infection of the right fifth toe status post amputation. Patient states for the last 4 days she has been having dry heaves and unable to keep anything down and at the same time developed abdominal pain which was generalized with tenderness. She states yesterday she had an area that popped open and had brownish greenish drainage in the mid abdominal area. She has also had diarrhea of watery-type for a few days but was with normal color and no blood. Her last meal was at least a week ago. She does have history of a right hemicolectomy for [place] dancers lesion 10 -15 years ago. There was no chemotherapy given at that time. She apparently had a hernia repair done one year later but otherwise no recent abdominal surgeries. Patient presented to [facility] emergency center for evaluation. Temperature max is 100.4. Vital signs were stable. CT of the abdomen and pelvis revealed pulmonary fibrotic changes and emphysema at the right lung base. Atherosclerotic vascular disease. Mild splenomegaly. Complex umbilical mass contained air and some fluid and is consistent with an abscess. There is localized air within the peritoneum cavity along the anterior abdominal wall associated with the mass. Bilateral nonobstructing renal calculi. Spondylotic changes in the lumbar spine with stenosis at L3 4. She underwent an I&D in the emergency center with return of purulent material, wound culture was obtained and the wound was packed. Patient was admitted to the hospital under general surgery and started on Flagyl and Zosyn. Noted the patient has extreme weakness to her lower extremities. She normally walks with a walker for the past year. She also admits to short-term memory loss but she has never been told she has dementia. She has a niece that helps her make decisions that is not listed on her demographic page. Case management to follow -up. 12/11: Patient has been afebrile. Pulse ox 89 and 90% and patient placed on O2 at 2 L. Patient is concerned about what to do next. There is a meeting with family in general surgeon this afternoon. IV fluids decrease to 50 mL per hour as patient has been started on a clear liquid diet today. Wound cultures showing gram-negative bacilli. Objective - Vital Signs Vital signs: Vital Signs Temp 98.9 F 12/11/17 07:00 Pulse 83 12/11/17 07:00 Resp 18 12/11/17 07:00 BP 155/81 12/11/17 07:00 Pulse Ox 89 L 12/11/17 07:00 Intake & Output 12/10/17 12/11/17 12/11/17 18:59 06:59 18:59 Intake Total 450 Output Total 200 Balance 250 Intake: IV 450 Sodium Chloride 0.9% 1, 450 000 ml @ 150 mls/hr IV . Q6H40M [facility] Rx#:[id number] Output: Urine 200 Other: Voiding Method Diaper Diaper Incontinent # Voids 2 2 # Bowel Movements 1 - Exam General appearance: average body habitus, no acute distress - EENT Eyes: PERRLA ENT: normal oropharynx Ears: bilateral: normal - Neck Neck: no lymphadenopathy, normal ROM, no rigidity, no stridor, no thyromegaly - Respiratory Respiratory: bilateral: CTA, diminished, negative: rales, rhonchi, wheezing, prolonged expiration - Cardiovascular Rhythm: regular Heart sounds: normal: S1, S2 Abnormal Heart Sounds: no systolic murmur, no diastolic murmur - Gastrointestinal General gastrointestinal: distended, no hepatomegaly, normal bowel sounds, no organomegaly, tenderness Localized gastrointestinal: tender: diffuse - Integumentary Integumentary: normal - Neurologic Neurologic: CNII-XII intact - Musculoskeletal Musculoskeletal: generalized weakness - Psychiatric Psychiatric: A&O x's 3 - Labs CBC & Chem 7: 12/11/17 07:59 12/11/17 07:59 Labs: Abnormal Lab Results - Last 24 Hours (Table) 12/10/17 12/10/17 12/10/17 Range/Units 01:47 01:47 20:30 Plt Count (150-450) k/uL Lymphocytes # (1.0-4.8) k/uL ESR 22 H (0-20) mm/hr Potassium 3.4 L (3.5-5.1) mmol/L Chloride 108 H (98-107) mmol/L Carbon Dioxide (22-30) mmol/L Glucose (74-99) mg/dL Total Protein (6.3-8.2) g/dL Albumin (3.5-5.0) g/dL Prealbumin 6.0 L (18.0-42.0) mg/dL 12/11/17 12/11/17 Range/Units 07:59 07:59 Plt Count 116 L (150-450) k/uL Lymphocytes # 0.6 L (1.0-4.8) k/uL ESR (0-20) mm/hr Potassium (3.5-5.1) mmol/L Chloride (98-107) mmol/L Carbon Dioxide 20 L (22-30) mmol/L Glucose 68 L (74-99) mg/dL Total Protein 6.0 L (6.3-8.2) g/dL Albumin 3.0 L (3.5-5.0) g/dL Prealbumin (18.0-42.0) mg/dL Microbiology - Last 24 Hours (Table) 12/10/17 03:25 Gram Stain - Preliminary Abdomen Wound Culture - Preliminary Gram Neg Bacilli 12/10/17 01:47 Blood Culture - Preliminary Blood No Growth after 24 hours 12/10/17 03:25 Anaerobic Culture - Preliminary Abdomen Assessment and Plan Plan: 1. Abdominal abscess and cellulitis. Consult with Dr. Booker. Patient is currently on Flagyl and Zosyn. Wound culture and blood culture are in process. Patient is status post I&D done in the emergency center. Patient may require further intervention. Diet has been advanced to clear liquids. 2. History of severe peripheral vascular disease status post stent, amputation of the right fifth toe, stable. Patient is normally on Plavix and aspirin 162 mg daily. 3. History of right colectomy 15 years ago at [facility]. 4. Known history of CAD January 2016, status post stent. Patient is usually on Lopressor 50 mg twice daily, Cozaar 100 mg daily, Lasix 40 mg daily as needed, Plavix, baby aspirin, Norvasc. 5. Breast cancer March 2013, status post lumpectomy. 6. Chronic tobacco dependency--quit in October 2017. 7. Hypertension. Patient is usually on Lopressor 50 mg twice daily, Cozaar 100 mg daily, Lasix 40 mg daily as needed, Norvasc. Patient will be placed on Vasotec IV as needed for systolic blood pressure greater than 160. 8. Recurrent depression. Patient is on BuSpar 10 mg twice daily and Zoloft 200 mg daily, trazodone 150 mg at bedtime. Medications on hold 9. History of CVA with short-term memory deficit and possible vascular dementia not previously diagnosed. 10. Peripheral artery disease currently on Plavix and aspirin. 11. Hypokalemia status post replacement. Discharge plan: To be determined. Patient has been at [facility] in the past. Patient will need PT OT evaluation. Impression and plan of care have been directed as dictated by the signing physician. Lucy Wetzel nurse practitioner acting as scribe for signing physician.
[2017-12-11] MEDS: busPIRone HCl 10 MG TAB PO SCH ×2 (15:34→20:34)
[2017-12-11] MEDS: LOSARTAN 50 MG TAB PO SCH (15:35)
[2017-12-11] MEDS: amLODIPine 2.5 MG TAB PO SCH (15:35)
--- NOTE | 2017-12-11 17:06 | P.PN ---
Subjective Progress Note Date: 12/11/17 Patient seen and examined at bedside. She states her abdominal pain is mildly improved. Packing was replaced in her abdominal wound. It is still feculent and foul-smelling in nature. She denies any nausea and vomiting. Objective - Vital Signs Vital signs: Vital Signs Temp 97.8 F 12/11/17 15:00 Pulse 90 12/11/17 15:00 Resp 18 12/11/17 15:00 BP 106/57 12/11/17 15:00 Pulse Ox 90 L 12/11/17 15:00 Intake & Output 12/10/17 12/11/17 12/11/17 18:59 06:59 18:59 Intake Total 450 650 Output Total 200 Balance 250 650 Intake: IV 450 400 Sodium Chloride 0.9% 1, 450 400 000 ml @ 100 mls/hr IV . Q10H MAURICIO Rx#:[id number] Intake, IV Titration 250 Amount Piperacillin-Tazobactam 3 50 .375 gm In Dextrose/Water 1 50ml.bag @ 12.5 mls/hr IVPB Q8H MAURICIO Rx#: [id number] Sodium Chloride 0.9% 1, 100 000 ml @ 50 mls/hr IV . Q20H MAURICIO Rx#:[id number] metroNIDAZOLE-NS PMX 500 100 mg In Saline 1 100ml.bag @ 100 mls/hr IVPB Q8HR MAURICIO Rx#:[id number] Output: Urine 200 Other: Voiding Method Diaper Diaper Incontinent # Voids 2 2 # Bowel Movements 1 - Constitutional General appearance: Present: cooperative - EENT ENT: Present: hearing grossly normal - Respiratory Details: No difficulty with respiration - Gastrointestinal Gastrointestinal Comment(s): Soft, tender around abscess incision site, drainage of purulent and feculent material from the site, no rebound, no guarding - Psychiatric Psychiatric: Present: A&O x's 3 - Labs CBC & Chem 7: 12/11/17 07:59 12/11/17 07:59 Labs: Abnormal Lab Results - Last 24 Hours (Table) 12/10/17 12/10/17 12/10/17 Range/Units 01:47 01:47 20:30 Plt Count (150-450) k/uL Lymphocytes # (1.0-4.8) k/uL ESR 22 H (0-20) mm/hr Potassium 3.4 L (3.5-5.1) mmol/L Chloride 108 H (98-107) mmol/L Carbon Dioxide (22-30) mmol/L Glucose (74-99) mg/dL Total Protein (6.3-8.2) g/dL Albumin (3.5-5.0) g/dL Prealbumin 6.0 L (18.0-42.0) mg/dL 12/11/17 12/11/17 Range/Units 07:59 07:59 Plt Count 116 L (150-450) k/uL Lymphocytes # 0.6 L (1.0-4.8) k/uL ESR (0-20) mm/hr Potassium (3.5-5.1) mmol/L Chloride (98-107) mmol/L Carbon Dioxide 20 L (22-30) mmol/L Glucose 68 L (74-99) mg/dL Total Protein 6.0 L (6.3-8.2) g/dL Albumin 3.0 L (3.5-5.0) g/dL Prealbumin (18.0-42.0) mg/dL Microbiology - Last 24 Hours (Table) 12/10/17 03:25 Gram Stain - Preliminary Abdomen Wound Culture - Preliminary Gram Neg Bacilli 12/10/17 01:47 Blood Culture - Preliminary Blood No Growth after 24 hours Assessment and Plan Plan: 62-year-old female with abdominal wall abscess - I had a long discussion with the patient today. I also called her significant other to discuss the case with him. 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 She states that she did have a hernia repair at this site over 10 years ago and has a mesh in place there. Secondary to this, I do not believe that management with nothing by mouth and TPN would be successful due to the foreign body of the mesh. I do think that the patient would need a laparotomy with likely bowel resection. I did discuss this with the patient and the patient's significant other. They have stated that if any surgical procedure were to be done, they would like it done at [facility]. They state that they have had all of their previous surgeries there and would like to continue that. Plan is to transfer the patient to [facility].
[2017-12-11] MEDS: HYDROmorphone 2 MG TAB PO PRN (20:32)
[2017-12-11] MEDS: METOPROLOL TARTRATE 50 MG TAB PO SCH (20:34)
[2017-12-11] MEDS ORDERED: traZODone HCL 100 MG TAB PO SCH (21:00)
--- NOTE | 2017-12-11 21:34 | P.PN ---
Subjective Progress Note Date: 12/11/17 Principal diagnosis: This is a 62-year-old female. She is well-known to ID service as she was seen last in September 2015 for lumbar pain and was treated for acute discitis of the L4-L5 with IV antibiotics in the form of vancomycin, and the wound center for a right fifth toe wound status post admission in August 2016 and amputation was done by Dr. Crisostomo. Patient states for the last 4 days she has been having dry heaves and unable to keep anything down and at the same time developed abdominal pain which was generalized with tenderness. She states yesterday she had an area that popped open and had brownish greenish drainage in the mid abdominal area. She has also had diarrhea of watery-type for a few days but was with normal color and no blood. Her last meal was at least a week ago. She does have history of a right hemicolectomy for [place] dancers lesion 10-15 years ago. There was no chemotherapy given at that time. She apparently had a hernia repair done one year later but otherwise no recent abdominal surgeries. Patient presented to [facility] emergency center for evaluation. Temperature max is 100.4. Vital signs were stable. CT of the abdomen and pelvis revealed pulmonary fibrotic changes and emphysema at the right lung base. Atherosclerotic vascular disease. Mild splenomegaly. Complex umbilical mass contained air and some fluid and is consistent with an abscess. There is localized air within the peritoneum cavity along the anterior abdominal wall associated with the mass. Bilateral nonobstructing renal calculi. Spondylotic changes in the lumbar spine with stenosis at L3 4. She underwent an I&D in the emergency center with return of purulent material, wound culture was obtained and the wound was packed. Patient was admitted to the hospital under general surgery and started on Flagyl and Zosyn. 12/11/2017 the patient feels somewhat better. Her fever is resolved. Abdominal pain persists. She's asking be transferred to [facility] where she worked For several decades so the people that she knows can help take care of her. Apparently this is being arranged because of her complex prior surgical history. Objective - Vital Signs Vital signs: Vital Signs Temp 97.8 F 12/11/17 15:00 Pulse 90 12/11/17 15:00 Resp 18 12/11/17 15:00 BP 106/57 12/11/17 15:00 Pulse Ox 90 L 02/20/18 15:00 Intake & Output 12/11/17 12/11/17 12/12/17 06:59 18:59 06:59 Intake Total 450 650 Output Total 200 Balance 250 650 Intake: IV 450 400 Sodium Chloride 0.9% 1, 450 400 000 ml @ 100 mls/hr IV . Q10H MAURICIO Rx#:[id number] Intake, IV Titration 250 Amount Piperacillin-Tazobactam 3 50 .375 gm In Dextrose/Water 1 50ml.bag @ 12.5 mls/hr IVPB Q8H MAURICIO Rx#: [id number] Sodium Chloride 0.9% 1, 100 000 ml @ 50 mls/hr IV . Q20H MAURICIO Rx#:[id number] metroNIDAZOLE-NS PMX 500 100 mg In Saline 1 100ml.bag @ 100 mls/hr IVPB Q8HR MAURICIO Rx#:[id number] Output: Urine 200 Other: Voiding Method Diaper Incontinent # Voids 2 # Bowel Movements 1 - Exam General appearance: average body habitus, no acute distress - EENT Eyes: PERRLA ENT: normal oropharynx Ears: bilateral: normal - Neck Neck: no lymphadenopathy, normal ROM, no rigidity, no stridor, no thyromegaly - Respiratory Respiratory: bilateral: CTA, diminished, negative: rales, rhonchi, wheezing, prolonged expiration - Cardiovascular Rhythm: regular Heart sounds: normal: S1, S2 Abnormal Heart Sounds: no systolic murmur, no diastolic murmur - Gastrointestinal General gastrointestinal: distended, no hepatomegaly, normal bowel sounds, no organomegaly, tenderness, The abdominal wall ulceration is noted. Continues to have some purulent drainage. It is less tender when his packed today. There is no darron guarding or rebound Localized gastrointestinal: tender: diffuse - Integumentary Integumentary: normal - Neurologic Neurologic: CNII-XII intact - Musculoskeletal Musculoskeletal: generalized weakness - Psychiatric Psychiatric: A&O x's 3, short-term memory loss. - Labs CBC & Chem 7: 12/11/17 07:59 12/11/17 07:59 Labs: Abnormal Lab Results - Last 24 Hours (Table) 12/10/17 12/11/17 12/11/17 Range/Units 01:47 07:59 07:59 Plt Count 116 L (150-450) k/uL Lymphocytes # 0.6 L (1.0-4.8) k/uL Carbon Dioxide 20 L (22-30) mmol/L Glucose 68 L (74-99) mg/dL Total Protein 6.0 L (6.3-8.2) g/dL Albumin 3.0 L (3.5-5.0) g/dL Prealbumin 6.0 L (18.0-42.0) mg/dL Microbiology - Last 24 Hours (Table) 12/10/17 03:25 Gram Stain - Preliminary Abdomen Wound Culture - Preliminary Gram Neg Bacilli 12/10/17 01:47 Blood Culture - Preliminary Blood No Growth after 24 hours Laboratory Results WBC 5.5 k/uL (3.8-10.6) 12/11/17 07:59 RBC 4.29 m/uL (3.80-5.40) 12/11/17 07:59 Hgb 13.2 gm/dL (11.4-16.0) 12/11/17 07:59 Hct 42.3 % (34.0-46.0) 12/11/17 07:59 MCV 98.6 fL (80.0-100.0) D 12/11/17 07:59 MCH 30.8 pg (25.0-35.0) 12/11/17 07:59 MCHC 31.2 g/dL (31.0-37.0) 12/11/17 07:59 RDW 12.8 % (11.5-15.5) 12/11/17 07:59 Plt Count 116 k/uL (150-450) L 12/11/17 07:59 Neutrophils % 80 % 12/11/17 07:59 Lymphocytes % 11 % 12/11/17 07:59 Monocytes % 5 % 12/11/17 07:59 Eosinophils % 2 % 12/11/17 07:59 Basophils % 1 % 12/11/17 07:59 Neutrophils # 4.4 k/uL (1.3-7.7) 12/11/17 07:59 Lymphocytes # 0.6 k/uL (1.0-4.8) L 12/11/17 07:59 Monocytes # 0.3 k/uL (0-1.0) 12/11/17 07:59 Eosinophils # 0.1 k/uL (0-0.7) 12/11/17 07:59 Basophils # 0.1 k/uL (0-0.2) 12/11/17 07:59 Hypochromasia Slight 12/11/17 07:59 ESR 22 mm/hr (0-20) H 12/10/17 01:47 PT 11.6 sec (9.0-12.0) 12/10/17 01:47 INR 1.2 (<1.2) H 12/10/17 01:47 APTT 22.1 sec (22.0-30.0) 12/10/17 01:47 Sodium 141 mmol/L (137-145) 12/11/17 07:59 Potassium 3.9 mmol/L (3.5-5.1) 12/11/17 07:59 Chloride 105 mmol/L (98-107) 12/11/17 07:59 Carbon Dioxide 20 mmol/L (22-30) L 12/11/17 07:59 Anion Gap 16 mmol/L 12/11/17 07:59 BUN 12 mg/dL (7-17) 12/11/17 07:59 Creatinine 0.69 mg/dL (0.52-1.04) 12/11/17 07:59 Est GFR (MDRD) Af Amer >60 (>60 ml/min/1.73 sqM) 12/11/17 07:59 Est GFR (MDRD) Non-Af >60 (>60 ml/min/1.73 sqM) 12/11/17 07:59 Glucose 68 mg/dL (74-99) L 12/11/17 07:59 Plasma Lactic Acid Robert 1.0 mmol/L (0.7-2.0) 12/10/17 01:47 Calcium 8.8 mg/dL (8.4-10.2) 12/11/17 07:59 Total Bilirubin 0.8 mg/dL (0.2-1.3) 12/11/17 07:59 AST 22 U/L (14-36) 12/11/17 07:59 ALT 20 U/L (9-52) 12/11/17 07:59 Alkaline Phosphatase 120 U/L (38-126) 12/11/17 07:59 Total Protein 6.0 g/dL (6.3-8.2) L 12/11/17 07:59 Albumin 3.0 g/dL (3.5-5.0) L 12/11/17 07:59 Prealbumin 6.0 mg/dL (18.0-42.0) L 12/10/17 01:47 Amylase 32 U/L (30-110) 12/10/17 01:47 Lipase 87 U/L (23-300) 12/10/17 01:47 Blood Type O Negative 12/10/17 01:47 Blood Type Recheck No 12/10/17 01:47 Antibody Screen NEGATIVE 12/10/17 01:47 Spec Expiration Date 12/13/2017 - 2347 12/10/17 01:47 Microbiology 12/10/17 03:25 Abdomen Gram Stain - Preliminary 12/10/17 03:25 Abdomen Wound Culture - Preliminary Gram Neg Bacilli 12/10/17 01:47 Blood Blood Culture - Preliminary No Growth after 24 hours 12/10/17 03:25 Abdomen Anaerobic Culture - Preliminary Assessment and Plan (1) Abdominal wall abscess at site of surgical wound Narrative/Plan: Patient relates as noted she was doing relatively well when she had the sudden upper abdominal pain near the midline incision of her prior extensive surgery. She then suddenly had an extensive amount of drainage that was foul purulent in nature. The drainage did not help her feel much better, because of this she then sought care at the hospital. She's not been seen by surgery. The site is being packed and dressings for drainage. Antimicrobial therapy for anaerobic bacteria and gram-negative organisms, she does not have a history of MRSA. We' ll be able to further direct wound therapy when she's had more definitive surgical intervention. 12/11/2017 the patient does have a complex prior surgical history and will be transferred to her prior facility for further surgical intervention and debridement to this abdominal wall abscess. With ongoing infection is not a candidate for negative pressure therapy system at this time. Continue to pack the ulcer until surgical debridement as occurred. At the time of her discharge from the outside hospital. Have her follow up with you the wound healing center and to complete her antibiotic therapy here. Current Visit: Yes Status: Acute Code(s): T81.4XXA - INFECTION FOLLOWING A PROCEDURE, INITIAL ENCOUNTER SNOMED Code(s): 276580367
[2017-12-11 23:33] VITALS: RESP 16
[2017-12-12] MEDS: HEPARIN SODIUM,PORCINE 5,000 UNIT/ML 1 ML VIAL SQ SCH ×2 (01:04→08:23)
[2017-12-12] MEDS: metroNIDAZOLE-NS PMX 500 MG in SALINE 1 100ML.BAG IVPB SCH ×2 (01:04→08:23)
[2017-12-12] MEDS: HYDROmorphone 2 MG TAB PO PRN ×3 (01:12→09:54)
[2017-12-12] MEDS: PIPERACILLIN-TAZOBACTAM 3.375 GM in DEXTROSE/WATER 1 50ML.BAG IVPB SCH (05:13)
[2017-12-12] MEDS: BACLOFEN 10 MG TAB PO PRN (05:54)
[2017-12-12 06:22] VITALS: BP 148/69; PULSE 68; TEMP 97.9
[2017-12-12] MEDS: LOSARTAN 50 MG TAB PO SCH (08:21)
[2017-12-12] MEDS: PANTOPRAZOLE 40 MG/10 ML VIAL IVP SCH (08:22)
[2017-12-12] MEDS: amLODIPine 2.5 MG TAB PO SCH (08:22)
[2017-12-12] MEDS: METOPROLOL TARTRATE 50 MG TAB PO SCH (08:22)
[2017-12-12] MEDS: MULTIVITAMINS, THERA 1 EACH TAB PO SCH (08:22)
[2017-12-12] MEDS: busPIRone HCl 10 MG TAB PO SCH (08:22)
[2017-12-12] MEDS: SODIUM CHLORIDE 0.9% 1,000 ML IV SCH (08:24)
[2017-12-12] MEDS ORDERED: SERTRALINE 100 MG TAB PO SCH (09:00)
--- NOTE | 2017-12-12 10:45 | P.DS ---
Providers Date of admission: 12/10/17 03:02 Expected date of discharge: 12/12/17 Attending physician: Zaira Cherry DO Consults: 12/10/17 10:39 Consult Physician Urgent Consulting Provider: Macarena Pathak Consult [place] [facility] provider notified?: Yes Primary care physician: Macarena [facility] Course: 62-year-old female looking older than stated age presented via the EMS system to the emergency room with a chief complaint of developing abdominal pain with drainage around the umbilicus area with a foul odor. Patient states the abdomen became more distended firm with tenderness surrounding the umbilicus area. Patient stated if she pressed on it would drain secretions that smelled like stool stated the drainage started within 24 hours. Patient stated prior to that she had a nausea sensation with emesis had been ongoing for several days. Patient denied any fever chills denied shortness of breath. Denied any change in bowel habits or difficulty in urinating. Patient states that 15 years ago at [facility] in [place] did undergo a right hemicolectomy was told it was for precancer. No chemo or radiation treatment. One year later developed an incisional hernia which was repaired. Additionally 2014 left breast cancer with lumpectomy receiving radiation treatment.. Other past surgical history includes a cholecystectomy. amputation fifth toe on the right foot Past medical history hyperlipidemia, hypertension, osteoarthritis DVT right lower leg and peripheral vascular disease In the emergency room patient did undergo CAT scan of the abdomen pelvis without contrast it did show in summary a complex mass associated within the umbilicus measuring 5 cm x 6 cm containing air and some fluid. In the emergency room patient did undergo an incision and drainage. Reviewing the procedure note indicated. that Purulent material extracted from the lesion was obtained with iodoform packing applied wound cultures were obtained The packing was removed to inspect the wound about 12 inches were removed with a moderate amount of foul odor noted smelling like stool A discussion had been had with Dr. Cherry surgeon with the patient about treatment options patient was requesting to be transferred to [facility] in [place]. Patient stated that for several decades she had worked there and had all of her surgical procedures done in the facility was requesting a transfer. Subsequently the patient was transferred 12 of December continues to have brownish greenish drainage from the mid abdominal area. Dr. cherry surgeon had a long discussion with the patient and the significant other. After reviewing the CAT scan of the abdomen pelvis evaluating the content of the abscess drainage that is a mixture of feculent, bilious, and. purlent Material it seems that the patient had developed a fistula in her bowel patient had a history of a prior hernia repair at the site 10 years prior with mesh in place. Dr. Cherry did not believe that management such as a conservative approach such as nothing by mouth and TPN would be successful due to the foreign body of the mesh. Given the complexity of the patient's clinical presentation the decision was made that the patient would be best suited to go to a tertiary center for higher level of care anticipate patient would need a laparotomy likely a bowel resection. Again the attending surgeon did discuss this with the patient and the patient's significant other. They're asking for the surgical procedure to be done in a facility that they're familiar with requesting to go to [facility] Impression discharge diagnosis History of a prior hernia repair with mesh placed 10 years prior History of a right colectomy 16 years prior CAT scan abdomen and pelvis this admission showed abscess drainage with a mixture of feculent,bilious, and. Material likely due to fistula within the bowel Present on admission Abdominal wall abscess at site of surgical wound Present on admission abdominal pain nausea vomiting febrile suspect due to abdominal abscess likely due to colon fistula CAT scan abdomen and pelvis shows abdominal wall abscess possibly extending into peritoneal cavity Status post incision and drainage with wound cultures obtained in the emergency room from the abdominal wall abscess History of a right colectomy 15 years prior Present on admission mild leukocytosis suspect reactive Present on admission hypokalemia History of left breast cancer with a lumpectomy 2014 The above impression and plan of care have been discussed and directed by signing physician. Marina Simeon nurse practitioner acting as scribe for signing physician. Patient Condition at Discharge: Stable Plan - Discharge Summary Discharge Rx Participant: No New Discharge Prescriptions: No Action Sertraline HCl [Zoloft] 200 mg PO DAILY Cholecalciferol [Vitamin D3] 2,000 unit PO DAILY Metoprolol Tartrate [Lopressor] 50 mg PO BID Cyanocobalamin [Vitamin B-12] 1,000 mcg PO DAILY HYDROcodone/APAP 10-325MG [Newton 10-325] 1 tab PO Q6H PRN PRN Reason: Pain Crestor (Unknown Dose) 1 tab PO QAM Aspirin [Adult Low Dose Aspirin EC] 162 mg PO DAILY Clopidogrel [Plavix] 75 mg PO DAILY Pantoprazole Sodium [Protonix] 40 mg PO DAILY Losartan Potassium [Cozaar] 100 mg PO DAILY amLODIPine [Norvasc] 2.5 mg PO DAILY traZODone HCL 150 mg PO HS Furosemide [Lasix] 40 mg PO DAILY PRN PRN Reason: Edema busPIRone HCl [Buspar] 10 mg PO BID Cetirizine HCl [Zyrtec] 10 mg PO DAILY PRN PRN Reason: Allergy Symptoms Baclofen [Lioresal] 10 mg PO QID PRN PRN Reason: Pain Discharge Medication List Sertraline HCl [Zoloft] 200 mg PO DAILY 10/11/15 [History] Cholecalciferol [Vitamin D3] 2,000 unit PO DAILY 02/07/16 [History] Metoprolol Tartrate [Lopressor] 50 mg PO BID 08/14/16 [History] Cyanocobalamin [Vitamin B-12] 1,000 mcg PO DAILY 08/17/16 [History] Aspirin [Adult Low Dose Aspirin EC] 162 mg PO DAILY 05/17/17 [History] Crestor (Unknown Dose) 1 tab PO QAM 05/17/17 [History] HYDROcodone/APAP 10-325MG [Newton 10-325] 1 tab PO Q6H PRN 05/17/17 [History] Clopidogrel [Plavix] 75 mg PO DAILY 05/21/17 [History] Baclofen [Lioresal] 10 mg PO QID PRN 12/10/17 [History] Cetirizine HCl [Zyrtec] 10 mg PO DAILY PRN 12/10/17 [History] Furosemide [Lasix] 40 mg PO DAILY PRN 12/10/17 [History] Losartan Potassium [Cozaar] 100 mg PO DAILY 12/10/17 [History] Pantoprazole Sodium [Protonix] 40 mg PO DAILY 12/10/17 [History] amLODIPine [Norvasc] 2.5 mg PO DAILY 12/10/17 [History] busPIRone HCl [Buspar] 10 mg PO BID 12/10/17 [History] traZODone HCL 150 mg PO HS 12/10/17 [History] Follow up Appointment(s)/Referral(s): Macarena Pathak MD [Primary Care Provider] - 1-2 days Zaira Cherry DO [Doctor of Osteopathic Medicine] - 1 Week Patient Instructions/Handouts: Acute Wound Care (DC) Activity/Diet/Wound Care/Special Instructions: Cardiac diet. Activity as tolerated. Discharge Disposition: DC/TRNS INTERMEDIATE CARE FAC
--- NOTE | 2017-12-12 12:33 | P.PN ---
Subjective Progress Note Date: 12/12/17 This is a 62-year-old female patient of Dr. 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 Patient recently quit smoking in October of this year. Her last admission was in July 2016 which time she was treated for infection of the right fifth toe status post amputation. Patient states for the last 4 days she has been having dry heaves and unable to keep anything down and at the same time developed abdominal pain which was generalized with tenderness. She states yesterday she had an area that popped open and had brownish greenish drainage in the mid abdominal area. She has also had diarrhea of watery-type for a few days but was with normal color and no blood. Her last meal was at least a week ago. She does have history of a right hemicolectomy for [place] [employer] lesion 10 -15 years ago. There was no chemotherapy given at that time. She apparently had a hernia repair done one year later but otherwise no recent abdominal surgeries. Patient presented to [facility] emergency center for evaluation. Temperature max is 100.4. Vital signs were stable. CT of the abdomen and pelvis revealed pulmonary fibrotic changes and emphysema at the right lung base. Atherosclerotic vascular disease. Mild splenomegaly. Complex umbilical mass contained air and some fluid and is consistent with an abscess. There is localized air within the peritoneum cavity along the anterior abdominal wall associated with the mass. Bilateral nonobstructing renal calculi. Spondylotic changes in the lumbar spine with stenosis at L3 4. She underwent an I&D in the emergency center with return of purulent material, wound culture was obtained and the wound was packed. Patient was admitted to the hospital under general surgery and started on Flagyl and Zosyn. Noted the patient has extreme weakness to her lower extremities. She normally walks with a walker for the past year. She also admits to short-term memory loss but she has never been told she has dementia. She has a niece that helps her make decisions that is not listed on her demographic page. Case management to follow -up. 12/11: Patient has been afebrile. Pulse ox 89 and 90% and patient placed on O2 at 2 L. Patient is concerned about what to do next. There is a meeting with family in general surgeon this afternoon. IV fluids decrease to 50 mL per hour as patient has been started on a clear liquid diet today. Wound cultures showing gram-negative bacilli. 12/12: Patient was with Dr. Betancourt yesterday and patient had verbalized that she wanted be transferred [facility] for any surgical intervention which is being arranged today. Patient denies any new complaints. Patient is tolerating diet. Objective - Vital Signs Vital signs: Vital Signs Temp 97.9 F 12/12/17 06:21 Pulse 68 12/12/17 06:21 Resp 16 12/12/17 06:21 BP 148/69 12/12/17 06:21 Pulse Ox 90 L 12/12/17 06:21 Intake & Output 12/11/17 12/12/17 12/12/17 18:59 06:59 18:59 Intake Total 650 200 Balance 650 200 Intake: IV 400 Sodium Chloride 0.9% 1, 400 000 ml @ 100 mls/hr IV . Q10H MAURICIO Rx#:[id number] Intake, IV Titration 250 Amount Piperacillin-Tazobactam 3 50 .375 gm In Dextrose/Water 1 50ml.bag @ 12.5 mls/hr IVPB Q8H MAURICIO Rx#: [id number] Sodium Chloride 0.9% 1, 100 000 ml @ 50 mls/hr IV . Q20H MAURICIO Rx#:[id number] metroNIDAZOLE-NS PMX 500 100 mg In Saline 1 100ml.bag @ 100 mls/hr IVPB Q8HR MAURICIO Rx#:[id number] Oral 200 Other: Voiding Method Diaper Incontinent # Voids 3 # Bowel Movements 0 - Exam General appearance: average body habitus, no acute distress - EENT Eyes: PERRLA ENT: normal oropharynx Ears: bilateral: normal - Neck Neck: no lymphadenopathy, normal ROM, no rigidity, no stridor, no thyromegaly - Respiratory Respiratory: bilateral: CTA, diminished, negative: rales, rhonchi, wheezing, prolonged expiration - Cardiovascular Rhythm: regular Heart sounds: normal: S1, S2 Abnormal Heart Sounds: no systolic murmur, no diastolic murmur - Gastrointestinal General gastrointestinal: distended, no hepatomegaly, normal bowel sounds, no organomegaly, tenderness Localized gastrointestinal: tender: diffuse - Integumentary Integumentary: normal - Neurologic Neurologic: CNII-XII intact - Musculoskeletal Musculoskeletal: generalized weakness - Psychiatric Psychiatric: A&O x's 3 - Labs CBC & Chem 7: 12/11/17 07:59 12/11/17 07:59 Labs: Abnormal Lab Results - Last 24 Hours (Table) 12/11/17 12/11/17 Range/Units 07:59 07:59 Plt Count 116 L (150-450) k/uL Lymphocytes # 0.6 L (1.0-4.8) k/uL Carbon Dioxide 20 L (22-30) mmol/L Glucose 68 L (74-99) mg/dL Total Protein 6.0 L (6.3-8.2) g/dL Albumin 3.0 L (3.5-5.0) g/dL Microbiology - Last 24 Hours (Table) 12/10/17 01:47 Blood Culture - Preliminary Blood No Growth after 48 hours 12/10/17 03:25 Gram Stain - Preliminary Abdomen Wound Culture - Preliminary Gram Neg Bacilli Assessment and Plan Plan: 1. Abdominal abscess and cellulitis. Consult with Dr. Booker. Patient is currently on Flagyl and Zosyn. Wound culture and blood culture are in process. Patient is status post I&D done in the emergency center. Patient may require further intervention. Diet has been advanced to clear liquids. 2. History of severe peripheral vascular disease status post stent, amputation of the right fifth toe, stable. Patient is normally on Plavix and aspirin 162 mg daily. 3. History of right colectomy 15 years ago at [facility]. 4. Known history of CAD January 2016, status post stent. Patient is usually on Lopressor 50 mg twice daily, Cozaar 100 mg daily, Lasix 40 mg daily as needed, Plavix, baby aspirin, Norvasc. 5. Breast cancer March 2013, status post lumpectomy. 6. Chronic tobacco dependency--quit in October 2017. 7. Hypertension. Patient is usually on Lopressor 50 mg twice daily, Cozaar 100 mg daily, Lasix 40 mg daily as needed, Norvasc. Patient will be placed on Vasotec IV as needed for systolic blood pressure greater than 160. 8. Recurrent depression. Patient is on BuSpar 10 mg twice daily and Zoloft 200 mg daily, trazodone 150 mg at bedtime. Medications on hold 9. History of CVA with short-term memory deficit and possible vascular dementia not previously diagnosed. 10. Peripheral artery disease currently on Plavix and aspirin. 11. Hypokalemia status post replacement. Discharge plan: Transferred to [facility]. Impression and plan of care have been directed as dictated by the signing physician. Lucy Wetzel nurse practitioner acting as scribe for signing physician.
== END 2017-12-12 11:32 | disposition short-term general hospital (02) | DRG 862 ==
LOC: EC 01:24 → 4MS4W 03:02 → 6SEL 03:16 → 4MS4W 12-11 00:21
PROVIDERS: ADMIT Surgery; ATTEND Surgery
PROC: 0H97XZZ Drainage of Abdomen Skin, External Approach (ICD-10-PCS; principal; 2017-12-10)
DX: T81.4XXA Infection following a procedure, initial encounter (principal); K65.1 Peritoneal abscess; K63.2 Fistula of intestine; L02.211 Cutaneous abscess of abdominal wall; L03.311 Cellulitis of abdominal wall; J43.9 Emphysema, unspecified; E78.5 Hyperlipidemia, unspecified; F32.9 Major depressive disorder, single episode, unspecified; F41.9 Anxiety disorder, unspecified; I10 Essential (primary) hypertension; I25.10 Atherosclerotic heart disease of native coronary artery without angina pectoris; I25.2 Old myocardial infarction; I73.9 Peripheral vascular disease, unspecified; M48.061 Spinal stenosis, lumbar region without neurogenic claudication; N20.0 Calculus of kidney; Z79.02 Long term (current) use of antithrombotics/antiplatelets; Z79.82 Long term (current) use of aspirin; Z79.899 Other long term (current) drug therapy; Z80.7 Family history of other malignant neoplasms of lymphoid, hematopoietic and related tissues; Z86.73 Personal history of transient ischemic attack (TIA), and cerebral infarction without residual deficits; Z87.891 Personal history of nicotine dependence; Z89.421 Acquired absence of other right toe(s); Z90.49 Acquired absence of other specified parts of digestive tract; Z88.8 Allergy status to other drugs, medicaments and biological substances; Z91.041 Radiographic dye allergy status; E87.6 Hypokalemia; Z85.3 Personal history of malignant neoplasm of breast
CPT/HCPCS: 10060; 36415; 74176; 80048; 80053; 82150; 83605; 83690; 84134; 85025; 85610; 85652; 85730; 86850; 86900; 86901; 87040; 87070; 87075; 87077; 87186; 87205; 96365; 96367; 96375; 99285

== ENCOUNTER 2018-04-12 15:59 | Emergency (ER) | payer MEDICARE ==
[2018-04-12] MEDS ORDERED: MORPHINE SULFATE 2 MG/ML SYRINGE IVP STA (16:18)
[2018-04-12] MEDS ORDERED: ONDANSETRON 4 MG/2 ML VIAL IVP STA (16:18)
[2018-04-12] MEDS ORDERED: PIPERACILLIN-TAZOBACTAM 3.375 GM in DEXTROSE/WATER 1 50ML.BAG IVPB STA (16:18)
[2018-04-12] MEDS ORDERED: SODIUM CHLORIDE 0.9% 500 ML IV STA (16:18)
[2018-04-12] MEDS ORDERED: SODIUM CHLORIDE 0.9% 1,000 ML IV STA (16:18)
[2018-04-12] MEDS ORDERED: FAMOTIDINE 20 MG/2 ML VIAL IV STA (16:22)
[2018-04-12] MEDS ORDERED: methylPREDNISolone SOD SUCCI 125 MG/2 ML VIAL IV STA (16:22)
[2018-04-12] MEDS ORDERED: diphenhydrAMINE 50 MG/ML 1 ML VIAL IVP STA (16:23)
--- NOTE | 2018-04-12 17:09 | XR ---
EXAMINATION TYPE: XR KUB DATE OF EXAM: 04/12/2018 COMPARISON: NONE HISTORY: Abdominal pain TECHNIQUE: 2 views FINDINGS: 2 supine views were obtained. Bowel gas pattern is normal. There is no sign of intestinal o bstruction or pneumoperitoneum. There are clips from cholecystectomy. Lung bases are clear. IMPRESSION: Nonacute abdomen.
[2018-04-12 17:58] LABS: Basophils # (A) 0.1 k/uL (0-0.2); Basophils % (A) 1 %; Eosinophils # (A) 0.2 k/uL (0-0.7); Eosinophils % (A) 2 %; HCT 32.5 % (34.0-46.0); HGB 10.4 gm/dL (11.4-16.0); Hypochromasia Moderate; Lymphocytes # (A) 1.3 k/uL (1.0-4.8); Lymphocytes % (A) 17 %; MCH 30.6 pg (25.0-35.0); MCHC 31.9 g/dL (31.0-37.0); MCV 95.8 fL (80.0-100.0); Mean Platelet Volume 6.8; Monocytes # (A) 0.5 k/uL (0-1.0); Monocytes % (A) 6 %; Neutrophils # (A) 5.8 k/uL (1.3-7.7); Neutrophils % (A) 73 %; Platelet Count 215 k/uL (150-450); RBC 3.39 m/uL (3.80-5.40); RDW 15.3 % (11.5-15.5); WBC 7.9 k/uL (3.8-10.6)
[2018-04-12 18:21] LABS: ALT 19 U/L (9-52); AST 15 U/L (14-36); Albumin 3.1 g/dL (3.5-5.0); Alkaline Phosphatase 102 U/L (38-126); Amylase 50 U/L (30-110); Anion Gap 11 mmol/L; Blood Urea Nitrogen 20 mg/dL (7-17); Calcium 8.6 mg/dL (8.4-10.2); Carbon Dioxide 20 mmol/L (22-30); Chloride 107 mmol/L (98-107); Glucose 99 mg/dL (74-99); Lipase 304 U/L (23-300); Potassium 4.4 mmol/L (3.5-5.1); Sodium 138 mmol/L (137-145); Total Bilirubin 0.4 mg/dL (0.2-1.3)
[2018-04-12] MEDS ORDERED: HYDROmorphone 0.5 MG/0.5 ML SYRINGE IVP PRN (19:25)
[2018-04-12] MEDS ORDERED: HYDROmorphone 0.5 MG/0.5 ML SYRINGE IVP STA (19:26)
--- NOTE | 2018-04-12 19:40 | ED ---
General Adult HPI - General Chief complaint: Recheck/Abnormal Lab/Rx Stated complaint: Abd.incision post op Time Seen by Provider: 04/12/18 16:07 Source: patient Mode of arrival: EMS Limitations: no limitations - History of Present Illness Initial comments: CT 3 years old female sent in by family doctor with the percutaneous infection of the abdomen with a suspicion of fistula in the abdomen noticed that there are some secretions as well as stool coming out of the wound on the anterior abdomen he had 2 surgeries done at [facility] according to the patient and once patient had I&D done about a abdominal wall abscess him a she had a fever chills no constipation or diarrhea no chest pain or shortness of breath doesn't abdominal pain - Related Data Home Medications Medication Instructions Recorded Confirmed Sertraline HCl [Zoloft] 200 mg PO DAILY 10/11/15 04/12/18 Aspirin [Adult Low Dose Aspirin EC] 162 mg PO DAILY 05/17/17 04/12/18 Clopidogrel [Plavix] 75 mg PO DAILY 05/21/17 04/12/18 Baclofen [Lioresal] 10 mg PO QID PRN 12/10/17 04/12/18 busPIRone HCl [Buspar] 10 mg PO BID 12/10/17 04/12/18 Acetaminophen [Tylenol] 650 mg PO Q6HR PRN 04/12/18 04/12/18 Atorvastatin [Lipitor] 40 mg PO HS 04/12/18 04/12/18 Donepezil HCl [Aricept] 10 mg PO DAILY 04/12/18 04/12/18 Doxycycline Monohydrate [Monodox] 100 mg PO Q12HR 04/12/18 04/12/18 Ergocalciferol [Vitamin D2] 50,000 unit PO TH 04/12/18 04/12/18 Fluticasone/Salmeterol [Advair 1 puff INHALATION RT-BID 04/12/18 04/12/18 250-50 Diskus] Metoprolol Tartrate [Lopressor] 12.5 mg PO BID 04/12/18 04/12/18 Midodrine HCl [ProAmatine] 10 mg PO Q8H 04/12/18 04/12/18 Multivitamins, Thera [Multivitamin 1 tab PO DAILY 04/12/18 04/12/18 (formulary)] Omeprazole Magnesium [PriLOSEC OTC] 20 mg PO DAILY 04/12/18 04/12/18 Sennosides [Senna] 8.6 mg PO BID 04/12/18 04/12/18 oxyCODONE HCL [OxyIR] 5 - 10 mg PO Q4H PRN 04/12/18 04/12/18 rOPINIRole HCL [Requip] 0.5 mg PO BID 04/12/18 04/12/18 traZODone HCL 200 mg PO HS 04/12/18 04/12/18 Allergies Allergy/AdvReac Type Severity Reaction Status Date / Time Iodinated Contrast- Oral and Allergy Unknown Verified 04/12/18 17:03 IV Dye [Iodinated Contrast Media - IV Dye] bupropion HCl AdvReac Severe SEIZURE Verified 04/12/18 17:03 [From Wellbutrin] liothyronine sodium AdvReac Rapid Verified 04/12/18 17:03 [From Cytomel] Heart Rate prochlorperazine AdvReac TONGUE Verified 04/12/18 17:03 [From Compazine] SWELLING prochlorperazine edisylate AdvReac TONGUE Verified 04/12/18 17:03 [From Compazine] SWELLING prochlorperazine maleate AdvReac TONGUE Verified 04/12/18 17:03 [From Compazine] SWELLING Review of Systems ROS Statement: Those systems with pertinent positive or pertinent negative responses have been documented in the HPI. ROS Other: All systems not noted in ROS Statement are negative. Past Medical History Past Medical History: Cancer, Chest Pain / Angina, COPD, Deep Vein Thrombosis ( DVT), Hyperlipidemia, Hypertension, Myocardial Infarction (NV), Osteoarthritis ( OA), Vascular Disorder Additional Past Medical History / Comment(s): Hx L Breast Ca 2013-had lumpectomy / radiation, abscess in jaw area, had one time seizure yrs. ago related to a drug reaction, DVT 2 yrs. ago R leg, insomnia off and on. Peripheral Vascular Disease. Currently being tested for MS. Last Myocardial Infarction Date:: Jul 2015 History of Any Multi-Drug Resistant Organisms: None Reported Past Surgical History: Bowel Resection, Breast Surgery, Cholecystectomy, Heart Catheterization With Stent, Joint Replacement, Orthopedic Surgery Additional Past Surgical History / Comment(s): 02/24/16 PTCA mid and distal RCA. Other surgical hx: hemicolectomy due to polyp not able to be reached with colonoscopy, total R knee, open surgery to L knee, stent R lower extremity, right baby toe amputated. Past Anesthesia/Blood Transfusion Reactions: No Reported Reaction Additional Past Anesthesia/Blood Transfusion Reaction / Comment(s): States combative when woke up from anesthesia 1-2 X. Date of Last Stent Placement:: Jul 2015 Past Psychological History: Anxiety, Depression Smoking Status: Former smoker Past Alcohol Use History: None Reported Past Drug Use History: Marijuana - Past Family History Father Family Medical History: Cancer Additional Family Medical History / Comment(s): Father is alive at age 81 with history of prostate cancer. Mother Family Medical History: Cancer Additional Family Medical History / Comment(s): Mother at age 63 and had multiple myeloma. General Exam - General Exam Comments Initial Comments: General: The patient is awake and alert, in no distress, and does not appear acutely ill. Skin: Skin is warm and dry noticed a large area about 10 cm diameter erythematous indurated in the has a 2 cm opening in the center noticed a bubbly secretions at most probably stool oozing out this is in the center of the abdomen around the umbilicus positive bowel sounds no guarding no rebounds yet Eye: Pupils are equal, round and reactive to light, extra-ocular movements are intact; there is normal conjunctiva bilaterally. Ears, nose, mouth and throat: There are moist mucous membranes and no oral lesions. Neck: The neck is supple, there is no tenderness or JVD. Cardiovascular: There is a regular rate and rhythm. No murmur, rub or gallop is appreciated. Respiratory: To auscultation bilateral, no wheezing no rhonchi no distress respiratory amezcua noticed Gastrointestinal: Soft, non-distended, non-tender abdomen without masses or organomegaly noted. There is no rebound or guarding present. Bowel sounds are unremarkable. Back: There is no tenderness to palpation in the midline. There is no obvious deformity. Musculoskeletal: Normal ROM, no tenderness, There is no pedal edema. There is no calf tenderness or swelling. No cords were appreciated. Neurological: CN II-XII intact, Cranial nerves III through XII are intact. There are no obvious motor or sensory deficits. Coordination appears grossly intact. Speech is normal. Psychiatric: Cooperative, appropriate mood & affect, normal judgment. Limitations: no limitations Course Vital Signs 04/12/18 04/12/18 16:03 19:25 Temperature 98.7 F Pulse Rate 63 54 L Respiratory 16 18 Rate Blood Pressure 140/63 103/59 O2 Sat by Pulse 99 98 Oximetry Labs are reviewed, she is hemodynamically stable she got a broad-spectrum IV antibiotics I spoke with the Dr. Rendon [facility] where he is accepting surgeon she be transported to [facility], no dynamic ileus she is very stable at this point - Reevaluation(s) Reevaluation #1: At this point CBC is unremarkable, His metabolic panel is within normal range except his lipase is 3 or 4 troponin is negative KUB is negative CT of the abdomen is pending we will make copies of these imaging for an [facility] 04/12/18 19:53 Medical Decision Making - Lab Data Result diagrams: 04/12/18 17:40 04/12/18 17:40 Lab Results 04/12/18 04/12/18 04/12/18 Range/Units 17:40 17:40 18:25 WBC 7.9 (3.8-10.6) k/uL RBC 3.39 L (3.80-5.40) m/uL Hgb 10.4 L (11.4-16.0) gm/dL Hct 32.5 L (34.0-46.0) % MCV 95.8 (80.0-100.0) fL MCH 30.6 (25.0-35.0) pg MCHC 31.9 (31.0-37.0) g/dL RDW 15.3 (11.5-15.5) % Plt Count 215 (150-450) k/uL Neutrophils % 73 % Lymphocytes % 17 % Monocytes % 6 % Eosinophils % 2 % Basophils % 1 % Neutrophils # 5.8 (1.3-7.7) k/uL Lymphocytes # 1.3 (1.0-4.8) k/uL Monocytes # 0.5 (0-1.0) k/uL Eosinophils # 0.2 (0-0.7) k/uL Basophils # 0.1 (0-0.2) k/uL Hypochromasia Moderate Sodium 138 (137-145) mmol/L Potassium 4.4 (3.5-5.1) mmol/L Chloride 107 (98-107) mmol/L Carbon Dioxide 20 L (22-30) mmol/L Anion Gap 11 mmol/L BUN 20 H (7-17) mg/dL Creatinine 0.80 (0.52-1.04) mg/dL Est GFR (CKD-EPI)AfAm >90 (>60 ml/min/1.73 sqM) Est GFR (CKD-EPI)NonAf 78 (>60 ml/min/1.73 sqM) Glucose 99 (74-99) mg/dL Plasma Lactic Acid Robert 0.7 (0.7-2.0) mmol/L Calcium 8.6 (8.4-10.2) mg/dL Total Bilirubin 0.4 (0.2-1.3) mg/dL AST 15 (14-36) U/L ALT 19 (9-52) U/L Alkaline Phosphatase 102 (38-126) U/L Troponin I (0.000-0.034) ng/mL Total Protein 6.0 L (6.3-8.2) g/dL Albumin 3.1 L (3.5-5.0) g/dL Amylase 50 (30-110) U/L Lipase 304 H (23-300) U/L 04/12/18 Range/Units 18:25 WBC (3.8-10.6) k/uL RBC (3.80-5.40) m/uL Hgb (11.4-16.0) gm/dL Hct (34.0-46.0) % MCV (80.0-100.0) fL MCH (25.0-35.0) pg MCHC (31.0-37.0) g/dL RDW (11.5-15.5) % Plt Count (150-450) k/uL Neutrophils % % Lymphocytes % % Monocytes % % Eosinophils % % Basophils % % Neutrophils # (1.3-7.7) k/uL Lymphocytes # (1.0-4.8) k/uL Monocytes # (0-1.0) k/uL Eosinophils # (0-0.7) k/uL Basophils # (0-0.2) k/uL Hypochromasia Sodium (137-145) mmol/L Potassium (3.5-5.1) mmol/L Chloride (98-107) mmol/L Carbon Dioxide (22-30) mmol/L Anion Gap mmol/L BUN (7-17) mg/dL Creatinine (0.52-1.04) mg/dL Est GFR (CKD-EPI)AfAm (>60 ml/min/1.73 sqM) Est GFR (CKD-EPI)NonAf (>60 ml/min/1.73 sqM) Glucose (74-99) mg/dL Plasma Lactic Acid Robert (0.7-2.0) mmol/L Calcium (8.4-10.2) mg/dL Total Bilirubin (0.2-1.3) mg/dL AST (14-36) U/L ALT (9-52) U/L Alkaline Phosphatase (38-126) U/L Troponin I <0.012 (0.000-0.034) ng/mL Total Protein (6.3-8.2) g/dL Albumin (3.5-5.0) g/dL Amylase (30-110) U/L Lipase (23-300) U/L Disposition Clinical Impression: Abdominal wall fistula Disposition: OTHER INSTITUTION NOT DEFINED Condition: Good Referrals: Macarena Pathak MD [Primary Care Provider] - 1-2 days - Out of Hospital Transfer - Req. Specs Out of Hospital Transfer - Requested Specifics: Other Emergency Center ([facility] accepted by [facility] general surgery on-call dr Rendon)
--- NOTE | 2018-04-12 20:29 | CT ---
EXAMINATION TYPE: CT abdomen pelvis w con DATE OF EXAM: 04/12/2018 COMPARISON: 12/10/2017 HISTORY: Open incision after abdominal surgery. CT DLP: 868.6 mGycm Automated exposure control for dose reduction was used. TECHNIQUE: Helical acquisition of images was performed from the lung bases through the pelvis. CONTRAST: Performed without Oral Contrast and with IV Contrast, patient injected with 100ml mL of Isovue 300. FINDINGS: There is patchy interstitial infiltrate at the lung bases with some mild coalescence at the right keily g base. There is no pericardial effusion. There is no pleural effusion. There are clips from cholecystectomy. Liver appears normal. The spleen is large and measures 15 cm. P ancreas appears normal. Bile ducts are not dilated. There is no adrenal mass. There is some calcification in the lower pole left kidney. There is mild le ft-sided renal cortical thinning. There is mild left-sided hydronephrosis and hydroureter. There is p ossible small calculus in the distal left ureter near the bladder. There is no retroperitoneal adenop athy. Abdominal aorta is atheromatous. There is midline ventral surgery with complex air and fluid wi thin the anterior abdominal wall. This measures 4 x 2 cm and extends to the adjacent small bowel. The re is subcutaneous increased density at the surgery site with thickening up to 1 cm. I see no evidence of free air in the abdomen. There is no ascites. There are numerous surgical clips at the cecum. There is no evidence of bowel obstruction. There are spondylotic changes in the lumbar spine with disc space narrowing and vacuum disc from L3 to S1. There is no compression fracture. There is increased density in the right inguinal region with surgical clips consistent with recent h ernia surgery. There is no discrete fluid collection. No hernia sac is seen. IMPRESSION: COMPLEX DENSITY WITHIN THE ANTERIOR MIDLINE ABDOMINAL WALL AT THE UMBILICUS CONSISTENT WITH AN ABSCES S. ENTEROCUTANEOUS FISTULA IS POSSIBLE. THERE IS NEW LEFT-SIDED HYDRONEPHROSIS COMPARED TO OLD EXAM WITH SOME MILD LEFT RENAL ATROPHY. THERE IS POSSIBLE OBSTRUCTION AT THE LEFT URETEROVESICAL JUNCTION. THIS IS A CHANGE COMPARED TO OLD EXAM. T HE OVERALL SIZE OF THE ABNORMALITY AT THE UMBILICUS IS SLIGHTLY DECREASED COMPARED TO OLD CT SCAN OF 12/10/2017. THERE IS SOME CHRONIC INTERSTITIAL INFILTRATE AND ATELECTASIS AT THE RIGHT LUNG BASE THAT IS SLIGHTLY WORSE THAN LAST EXAM.
[2018-04-12 20:54] VITALS: TEMP 98
[2018-04-12 21:10] VITALS: BP 121/59; PULSE 56; RESP 15
== END 2018-04-12 21:30 | disposition other institution (70) ==
LOC: EC 15:59
DX: K63.2 Fistula of intestine (principal); J44.9 Chronic obstructive pulmonary disease, unspecified; E78.5 Hyperlipidemia, unspecified; I10 Essential (primary) hypertension; I25.2 Old myocardial infarction; F32.9 Major depressive disorder, single episode, unspecified; F41.9 Anxiety disorder, unspecified; Z86.718 Personal history of other venous thrombosis and embolism; Z85.3 Personal history of malignant neoplasm of breast; Z87.891 Personal history of nicotine dependence; Z79.51 Long term (current) use of inhaled steroids; Z79.899 Other long term (current) drug therapy; Z79.01 Long term (current) use of anticoagulants; Z79.82 Long term (current) use of aspirin; Z88.8 Allergy status to other drugs, medicaments and biological substances; Z91.041 Radiographic dye allergy status; Z90.49 Acquired absence of other specified parts of digestive tract; Z95.5 Presence of coronary angioplasty implant and graft
CPT/HCPCS: 99285 ×2; 96375 ×7; 96374; 36415; 80053; 82150; 83605; 83690; 84484; 85025; 87040; 87070; 87205; 87077; 87186; 74018; 74177; 96365; 96361 ×3; J1200; J2930; J2405; J2270; J2543; J1170; Q9967

== ENCOUNTER → 2018-07-03 | Outpatient (CLI) | payer MEDICARE ==
--- NOTE | 2018-07-04 00:57 | CT ---
EXAMINATION TYPE: CT abdomen pelvis w con DATE OF EXAM: 07/03/2018 COMPARISON: 04/12/2018 and 12/10/2017 HISTORY: 63-year-old female RLQ/epigastric pain TECHNIQUE: Contiguous axial scanning of the abdomen and pelvis following administration of 100 ml Iso emily 300 IV contrast. Delayed images through the kidneys and coronal/sagittal reconstructions perform ed. CT DLP: 642 mGycm Automated exposure control for dose reduction was used. FINDINGS: Heart normal size without pericardial effusion. Emphysematous changes and strandy scarring or atelect asis in the visualized lower lungs. Some underlying interstitial fibrosis also appears to be present. No pleural effusion. No focal liver lesion or biliary ductal dilatation. Portal venous system is patent. Cholecystectomy clips. Mild diffuse thickening of the left adrenal gland without discrete nodularity is unchanged. The right adrenal gland, right kidney, spleen, pancreas appear within normal limits. Stable 1 cm and smaller hypodense lesions in the left kidney too small for accurate CT characterizati on, likely small cysts. Mild left-sided pelvicaliectasis is unchanged with slight delayed excretion o f contrast from the left kidney. 1 cm nonobstructive left lower pole renal calculus unchanged. No luigi picious calcifications seen along the course of the left ureter. Moderate atherosclerotic calcifications throughout the abdominal aorta with a 2.5 cm fusiform ectasia of the infrarenal portion. No dilated small bowel, free fluid, or free air. Oral contrast has progressed to the proximal transve rse colon. There is moderate stool burden and scattered left-sided colonic diverticulosis. There is mesh repair is suggested interposed between the fascial planes of the rectus abdominis and a plate like fluid collection just deep to the mesh interposed between the fascial planes measuring 6. 0 cm craniocaudal by 5.9 cm wide by 1.0 cm thick. No residual abnormal air. Bladder is urine distended. Multiple pelvic phleboliths. Uterus and ovaries are visualized. No abnorm al fluid collection in the pelvis or pelvic lymphadenopathy. Poor enhancement seen along the bilateral superficial femoral arteries Bones: Degenerative changes of both hips. Osteopenia. Degenerative changes mid to lower lumbar spine. Degenerated levoconvex scoliosis. IMPRESSION: 1. APPARENT INTERVAL MESH PLACED BETWEEN THE PLANES OF THE ANTERIOR ABDOMINAL WALL MUSCULATURE AT THE SITE OF PREVIOUS WOUND. THERE IS A PLATELIKE FLUID COLLECTION MEASURING 6 CM WIDE AND 1 CM THICK AUGUST NG THE DEEP ASPECT OF THE MESH THAT COULD REPRESENT POSTOPERATIVE SEROMA. CORRELATE TO EXCLUDE ABSCES S. 2. MILD LEFT-SIDED HYDRONEPHROSIS WITH SLIGHT DELAYED EXCRETION OF CONTRAST FROM THE LEFT KIDNEY, STA BLE FROM 04/12/2018. NO OBSTRUCTING URETERAL CALCULUS IS IDENTIFIED. THIS FINDING IS NEW COMPARED T O 12/10/2017. CONSIDER ULTRASOUND FOLLOW-UP OF THE LEFT KIDNEY. 3. COPD AND SOME INTERSTITIAL FIBROSIS AT THE LUNG BASES, 1 CM NONOBSTRUCTIVE LEFT RENAL CALCULUS, AN D MILD LEFT-SIDED COLONIC DIVERTICULOSIS. 4. POOR ENHANCEMENT IN THE BILATERAL SUPERFICIAL FEMORAL ARTERIES. HIGH-GRADE STENOSIS OR VESSEL OCCL USIONS DIFFICULT TO EXCLUDE. FURTHER CLINICAL CORRELATION RECOMMENDED.
== END | disposition home or self-care (01) ==
LOC: RADCTMAIN 16:54
PROVIDERS: ATTEND Family Medicine
DX: N20.0 Calculus of kidney (principal); N13.30 Unspecified hydronephrosis; K57.30 Diverticulosis of large intestine without perforation or abscess without bleeding; K55.1 Chronic vascular disorders of intestine
CPT/HCPCS: 82565; 84520; 74177; 36415; Q9967

== ENCOUNTER 2018-07-16 09:08 | Day surgery (SDC) | payer MEDICARE ==
[2018-07-16 11:20] VITALS: RESP 18; TEMP 98
[2018-07-16 11:22] VITALS: BP 128/66; PULSE 70
--- NOTE | 2018-07-16 12:28 | US ---
ULTRASOUND GUIDED FNA SUBCUTANEOUS FLUID COLLECTION BIOPSY: CLINICAL HISTORY: Postoperative subcutaneous seroma FINDINGS: The procedure was explained to the patient. The risks, complications, benefits and alternatives were discussed and any questions were answered. Informed consent was obtained. Patient was placed supin e on the ultrasound table and prepped and draped in the usual sterile fashion. Utilizing a 25 gauge needle, a single pass was made into the subcutaneous fluid collection. Patient was stable throughout the procedure. Pathology is pending. All elements of maximal barrier technique were utilized. IMPRESSION: 1. Successful ultrasound guided FNA subcutaneous fluid collection. Pathology pending.
== END 2018-07-16 10:40 | disposition home or self-care (01) ==
LOC: RADPROMAIN 09:08
PROVIDERS: ATTEND Family Medicine
DX: R18.8 Other ascites (principal); R93.5 Abnormal findings on diagnostic imaging of other abdominal regions, including retroperitoneum
CPT/HCPCS: 10022; 76942; 87070; 87075; 87205

== ENCOUNTER 2018-07-28 06:55 | Inpatient (IN) | payer MEDICARE ==
[2018-07-28] MEDS ORDERED: SODIUM CHLORIDE 0.9% 1,000 ML IV STA (07:14)
[2018-07-28] MEDS ORDERED: methylPREDNISolone SOD SUCCI 125 MG/2 ML VIAL IV STA (07:14)
[2018-07-28] MEDS ORDERED: IPRATROPIUM-ALBUTEROL 3 ML NEB INHALATION STA ×2 (07:14→10:59)
--- NOTE | 2018-07-28 07:51 | ED ---
SOB HPI - General Chief Complaint: Shortness of Breath Stated Complaint: Female Time Seen by Provider: 07/28/18 07:05 Source: patient, family, RN notes reviewed Mode of arrival: wheelchair Limitations: physical limitation - History of Present Illness Initial Comments: See this is a 63-year-old female history of COPD peripheral vascular disease who still smokes who presents with complaints of one day of shortness of breath cough exertional dyspnea no chest pain she did have a low-grade fever yesterday and broke no chills or sweats. No other modifying factors this time the patient also states she's had decreased urine output. MD Complaint: shortness of breath, cough - Related Data Home Medications Medication Instructions Recorded Confirmed Sertraline HCl [Zoloft] 200 mg PO DAILY 10/11/15 07/16/18 Aspirin [Adult Low Dose Aspirin EC] 162 mg PO DAILY 05/17/17 07/08/18 Clopidogrel [Plavix] 75 mg PO DAILY 05/21/17 07/08/18 Baclofen [Lioresal] 10 mg PO QID PRN 12/10/17 07/16/18 busPIRone HCl [Buspar] 10 mg PO TID 12/10/17 07/16/18 Atorvastatin [Lipitor] 40 mg PO HS 04/12/18 07/08/18 Donepezil HCl [Aricept] 10 mg PO DAILY 04/12/18 07/16/18 Fluticasone/Salmeterol [Advair 1 puff INHALATION RT-BID 04/12/18 07/08/18 250-50 Diskus] Metoprolol Tartrate [Lopressor] 50 mg PO BID 04/12/18 07/16/18 Midodrine HCl [ProAmatine] 10 mg PO Q8H 04/12/18 07/16/18 Omeprazole Magnesium [PriLOSEC OTC] 20 mg PO DAILY 04/12/18 07/16/18 oxyCODONE HCL [OxyIR] 5 - 10 mg PO Q4H PRN 04/12/18 07/08/18 rOPINIRole HCL [Requip] 0.5 mg PO BID 04/12/18 07/16/18 traZODone HCL 200 mg PO HS 04/12/18 07/08/18 Furosemide [Lasix] 40 mg PO DAILY 07/08/18 07/16/18 LORazepam [Ativan] 1 mg PO HS 07/08/18 07/08/18 Losartan [Cozaar] 25 mg PO BID 07/08/18 07/16/18 Potassium Chloride [K-Tab ER] 20 meq PO DAILY 07/08/18 07/16/18 Allergies Allergy/AdvReac Type Severity Reaction Status Date / Time Iodinated Contrast- Oral and Allergy Unknown Verified 07/28/18 07:05 IV Dye [Iodinated Contrast Media - IV Dye] bupropion HCl AdvReac Severe SEIZURE Verified 07/28/18 07:05 [From Wellbutrin] liothyronine sodium AdvReac Rapid Verified 07/28/18 07:05 [From Cytomel] Heart Rate prochlorperazine AdvReac TONGUE Verified 07/28/18 07:05 [From Compazine] SWELLING prochlorperazine edisylate AdvReac TONGUE Verified 07/28/18 07:05 [From Compazine] SWELLING prochlorperazine maleate AdvReac TONGUE Verified 07/28/18 07:05 [From Compazine] SWELLING Review of Systems ROS Statement: Those systems with pertinent positive or pertinent negative responses have been documented in the HPI. ROS Other: All systems not noted in ROS Statement are negative. Past Medical History Past Medical History: Cancer, Chest Pain / Angina, COPD, Deep Vein Thrombosis ( DVT), Hyperlipidemia, Hypertension, Myocardial Infarction ([place]), Osteoarthritis ( OA), Vascular Disorder Additional Past Medical History / Comment(s): Hx L Breast Ca 2013-had lumpectomy / radiation, abscess in jaw area, had one time seizure yrs. ago related to a drug reaction, DVT 2 yrs. ago R leg, insomnia off and on. Peripheral Vascular Disease. Last Myocardial Infarction Date:: Jul 2015 History of Any Multi-Drug Resistant Organisms: ESBL Date of last positivie culture/infection: 04/12/18 MDRO Source:: abdomen (pt denies jun 2018 when asked) Past Surgical History: Bowel Resection, Breast Surgery, Cholecystectomy, Heart Catheterization With Stent, Joint Replacement, Orthopedic Surgery Additional Past Surgical History / Comment(s): 02/24/16 PTCA mid and distal RCA. Other surgical hx: hemicolectomy due to polyp not able to be reached with colonoscopy, total R knee, open surgery to L knee, stent R lower extremity, right baby toe amputated. rt leg bypass, fitula surgery done at [facility] Past Anesthesia/Blood Transfusion Reactions: No Reported Reaction Additional Past Anesthesia/Blood Transfusion Reaction / Comment(s): States combative when woke up from anesthesia 1-2 X. Date of Last Stent Placement:: Jul 2015 Past Psychological History: Anxiety, Depression Smoking Status: Current every day smoker Past Alcohol Use History: None Reported Past Drug Use History: Marijuana - Past Family History Father Family Medical History: Cancer Additional Family Medical History / Comment(s): Father is alive at age 81 with history of prostate cancer. Mother Family Medical History: Cancer Additional Family Medical History / Comment(s): Mother at age 63 and had multiple myeloma. General Exam - General Exam Comments Initial Comments: This is a well-developed sec appearing female who does demonstrate kyphosis and who does have evidence of shortness of breath with some audible wheezing Limitations: physical limitation General appearance: alert, anxious Head exam: Present: atraumatic, normocephalic, normal inspection Eye exam: Present: normal appearance, PERRL, EOMI. Absent: scleral icterus, conjunctival injection, periorbital swelling ENT exam: Present: mucous membranes dry Neck exam: Present: normal inspection. Absent: tenderness, meningismus, lymphadenopathy Respiratory exam: Present: wheezes, accessory muscle use, decreased breath sounds, other (She does demonstrate kyphosis). Absent: respiratory distress, rales, rhonchi, stridor Cardiovascular Exam: Present: regular rate, normal rhythm, normal heart sounds. Absent: systolic murmur, diastolic murmur, rubs, gallop, clicks GI/Abdominal exam: Present: soft, normal bowel sounds. Absent: distended, tenderness, guarding, rebound, rigid Extremities exam: Present: normal inspection, full ROM, normal capillary refill , pedal edema (Trace edema well-healing surgical scars on the right stasis dermatitis is demonstrated). Absent: tenderness, joint swelling, calf tenderness Back exam: Present: normal inspection Neurological exam: Present: alert, oriented X3, CN II-XII intact Psychiatric exam: Present: normal affect, normal mood Skin exam: Present: warm, dry, intact, normal color. Absent: rash Course Vital Signs 07/28/18 07/28/18 07/28/18 07:01 07:24 07:34 Temperature 97.9 F Pulse Rate 58 L 51 L 51 L Respiratory 22 Rate Blood Pressure 153/77 O2 Sat by Pulse 98 Oximetry 07/28/18 07/28/18 07/28/18 09:00 10:00 11:00 Temperature Pulse Rate 52 L 50 L 47 L Respiratory 18 18 18 Rate Blood Pressure 162/70 106/55 137/64 O2 Sat by Pulse 97 97 97 Oximetry 07/28/18 07/28/18 11:30 11:39 Temperature Pulse Rate 53 L 55 L Respiratory Rate Blood Pressure O2 Sat by Pulse Oximetry Medical Decision Making - Medical Decision Making I did reevaluate patient several occasions she did not demonstrate improvement in her breathing and wheezing and respiratory difficulties. She initially did not want to be admitted but after feeling in ER nebulizer treatment IV magnesium IV steroids she has elected to stay. I did discuss case with Dr. Niño patient will be admitted she will be placed on IV steroids IV antibiotics as well as continued updraft treatments. The patient denies having a operations agent at this time. - Lab Data Result diagrams: 07/28/18 07:40 07/28/18 07:40 Lab Results 07/28/18 07/28/18 07/28/18 Range/Units 07:40 07:40 07:40 WBC 5.3 (3.8-10.6) k/uL RBC 4.28 (3.80-5.40) m/uL Hgb 11.8 (11.4-16.0) gm/dL Hct 35.6 (34.0-46.0) % MCV 83.2 (80.0-100.0) fL MCH 27.7 (25.0-35.0) pg MCHC 33.3 (31.0-37.0) g/dL RDW 15.9 H (11.5-15.5) % Plt Count 87 L (150-450) k/uL Neutrophils % 74 % Lymphocytes % 17 % Monocytes % 6 % Eosinophils % 3 % Basophils % 0 % Neutrophils # 4.0 (1.3-7.7) k/uL Lymphocytes # 0.9 L (1.0-4.8) k/uL Monocytes # 0.3 (0-1.0) k/uL Eosinophils # 0.1 (0-0.7) k/uL Basophils # 0.0 (0-0.2) k/uL Manual Slide Review Performed PT (9.0-12.0) sec INR (<1.2) APTT (22.0-30.0) sec Sodium 143 (137-145) mmol/L Potassium 3.5 (3.5-5.1) mmol/L Chloride 112 H (98-107) mmol/L Carbon Dioxide 24 (22-30) mmol/L Anion Gap 7 mmol/L BUN 18 H (7-17) mg/dL Creatinine 0.79 (0.52-1.04) mg/dL Est GFR (CKD-EPI)AfAm >90 (>60 ml/min/1.73 sqM) Est GFR (CKD-EPI)NonAf 80 (>60 ml/min/1.73 sqM) Glucose 103 H (74-99) mg/dL Calcium 9.0 (8.4-10.2) mg/dL Magnesium 1.7 (1.6-2.3) mg/dL Total Bilirubin 0.6 (0.2-1.3) mg/dL AST 15 (14-36) U/L ALT 27 (9-52) U/L Alkaline Phosphatase 135 H (38-126) U/L Total Creatine Kinase 65 (30-135) U/L CK-MB (CK-2) 2.0 (0.0-2.4) ng/mL CK-MB (CK-2) Rel Index 3.1 Troponin I <0.012 (0.000-0.034) ng/mL NT-Pro-B Natriuret Pep pg/mL Total Protein 6.6 (6.3-8.2) g/dL Albumin 3.5 (3.5-5.0) g/dL Urine Color Urine Appearance (Clear) Urine pH (5.0-8.0) Ur Specific [place] (1.001-1.035) Urine Protein (Negative) Urine Glucose (UA) (Negative) Urine Ketones (Negative) Urine Blood (Negative) Urine Nitrite (Negative) Urine Bilirubin (Negative) Urine Urobilinogen (<2.0) mg/dL Ur Leukocyte Esterase (Negative) 07/28/18 07/28/18 07/28/18 Range/Units 07:40 07:40 08:45 WBC (3.8-10.6) k/uL RBC (3.80-5.40) m/uL Hgb (11.4-16.0) gm/dL Hct (34.0-46.0) % MCV (80.0-100.0) fL MCH (25.0-35.0) pg MCHC (31.0-37.0) g/dL RDW (11.5-15.5) % Plt Count (150-450) k/uL Neutrophils % % Lymphocytes % % Monocytes % % Eosinophils % % Basophils % % Neutrophils # (1.3-7.7) k/uL Lymphocytes # (1.0-4.8) k/uL Monocytes # (0-1.0) k/uL Eosinophils # (0-0.7) k/uL Basophils # (0-0.2) k/uL Manual Slide Review PT 10.0 (9.0-12.0) sec INR 1.0 (<1.2) APTT 23.9 (22.0-30.0) sec Sodium (137-145) mmol/L Potassium (3.5-5.1) mmol/L Chloride (98-107) mmol/L Carbon Dioxide (22-30) mmol/L Anion Gap mmol/L BUN (7-17) mg/dL Creatinine (0.52-1.04) mg/dL Est GFR (CKD-EPI)AfAm (>60 ml/min/1.73 sqM) Est GFR (CKD-EPI)NonAf (>60 ml/min/1.73 sqM) Glucose (74-99) mg/dL Calcium (8.4-10.2) mg/dL Magnesium (1.6-2.3) mg/dL Total Bilirubin (0.2-1.3) mg/dL AST (14-36) U/L ALT (9-52) U/L Alkaline Phosphatase (38-126) U/L Total Creatine Kinase (30-135) U/L CK-MB (CK-2) (0.0-2.4) ng/mL CK-MB (CK-2) Rel Index Troponin I (0.000-0.034) ng/mL NT-Pro-B Natriuret Pep 484 pg/mL Total Protein (6.3-8.2) g/dL Albumin (3.5-5.0) g/dL Urine Color Light Yellow Urine Appearance Clear (Clear) Urine pH 5.5 (5.0-8.0) Ur Specific [place] 1.008 (1.001-1.035) Urine Protein Negative (Negative) Urine Glucose (UA) Negative (Negative) Urine Ketones Negative (Negative) Urine Blood Negative (Negative) Urine Nitrite Negative (Negative) Urine Bilirubin Negative (Negative) Urine Urobilinogen <2.0 (<2.0) mg/dL Ur Leukocyte Esterase Negative (Negative) - EKG Data -: EKG Interpreted by Nv EKG shows normal: sinus rhythm ([place] [address] QRS duration 92 QT since QTC 444/[address] configuration.) - Radiology Data Radiology results: report reviewed (Imaging shows no definite acute abnormalities), image reviewed Critical Care Time Critical Care Time: Yes Critical Care Time: 32 minutes of critical care time which includes initial presentation with history physical labs x-rays multiple reevaluation patient responsive therapy discuss with the patient regarding findings discussion with the admitting physician admission orders and documentation of the above Disposition Clinical Impression: Acute exacerbation of chronic obstructive airways disease, Adult respiratory distress syndrome, Smoking Disposition: ADMITTED IP TO THIS [facility] Condition: Serious Referrals: Macarena Pathak MD [Primary Care Provider] - 1-2 days
[2018-07-28 08:25] LABS: Basophils % (A) 0 %; Eosinophils # (A) 0.1 k/uL (0-0.7); Eosinophils % (A) 3 %; HCT 35.6 % (34.0-46.0); HGB 11.8 gm/dL (11.4-16.0); Lymphocytes # (A) 0.9 k/uL (1.0-4.8); Lymphocytes % (A) 17 %; MCH 27.7 pg (25.0-35.0); MCHC 33.3 g/dL (31.0-37.0); MCV 83.2 fL (80.0-100.0); Mean Platelet Volume 8.7; Monocytes # (A) 0.3 k/uL (0-1.0); Monocytes % (A) 6 %; Neutrophils % (A) 74 %; RBC 4.28 m/uL (3.80-5.40); RDW 15.9 % (11.5-15.5); WBC 5.3 k/uL (3.8-10.6)
--- NOTE | 2018-07-28 08:30 | XR ---
EXAMINATION TYPE: XR chest 2V DATE OF EXAM: 07/28/2018 HISTORY: difficulty breathing. REFERENCE: Previous study dated 08/18/2016. FINDINGS: Lung volumes are prominent. The heart is upper limits of normal in size. There are chronic pleural parenchymal changes at the left lung base. There is some linear scarring in the right midlung . It would be difficult to exclude tiny bilateral effusions. IMPRESSION: 1. COPD. 2. BORDERLINE CARDIOMEGALY. 3. CHRONIC PLEURAL PARENCHYMAL CHANGES, LEFT LUNG BASE. 4. I CANNOT EXCLUDE TINY, BILATERAL EFFUSIONS.
[2018-07-28 08:37] LABS: ALT 27 U/L (9-52); AST 15 U/L (14-36); Albumin 3.5 g/dL (3.5-5.0); Alkaline Phosphatase 135 U/L (38-126); Anion Gap 7 mmol/L; Blood Urea Nitrogen 18 mg/dL (7-17); Carbon Dioxide 24 mmol/L (22-30); Chloride 112 mmol/L (98-107); Glucose 103 mg/dL (74-99); Magnesium 1.7 mg/dL (1.6-2.3); Potassium 3.5 mmol/L (3.5-5.1); Sodium 143 mmol/L (137-145); Total Bilirubin 0.6 mg/dL (0.2-1.3); Total Protein 6.6 g/dL (6.3-8.2)
[2018-07-28 08:39] LABS: Partial Thromboplastin Time 23.9 sec (22.0-30.0)
[2018-07-28 08:44] LABS: Platelet Count 87 k/uL (150-450)
[2018-07-28 09:03] LABS: Appearance,Urine Clear (Clear); Bilirubin,Urine Negative (Negative); Blood,Urine Negative (Negative); Color,Urine Light Yellow; Glucose,Urine (UA) Negative (Negative); Ketones,Urine Negative (Negative); Leukocyte Esterase,Urine Negative (Negative); Nitrite,Urine Negative (Negative); PH, Urine 5.5 (5.0-8.0); Protein,Urine Negative (Negative); Specific Gravity,Urine 1.008 (1.001-1.035); Urobilinogen,Urine <2.0 mg/dL (<2.0)
[2018-07-28 09:11] LABS: Creatine Kinase 65 U/L (30-135)
[2018-07-28] MEDS ORDERED: MAGNESIUM SULFATE-D5W PMX 1 GM in DEXTROSE/WATER 1 100ML.BAG IVPB ONE (09:18)
[2018-07-28 09:24] LABS: Troponin I <0.012 ng/mL (0.000-0.034)
[2018-07-28] MEDS ORDERED: BACLOFEN 10 MG TAB PO PRN (12:06)
[2018-07-28] MEDS ORDERED: NICOTINE 14MG/24HR PATCH TRANSDERM STA (12:09)
[2018-07-28] MEDS ORDERED: MIDODRINE 5 MG TAB PO SCH (12:15)
[2018-07-28] MEDS: IPRATROPIUM-ALBUTEROL 3 ML NEB INHALATION SCH ×2 (15:25→19:10)
[2018-07-28] MEDS: busPIRone HCl 10 MG TAB PO SCH ×2 (15:51→21:00)
[2018-07-28] MEDS: SODIUM CHLORIDE 0.9% 1,000 ML IV SCH ×2 (15:55→23:52)
[2018-07-28] MEDS: MIDODRINE 5 MG TAB PO SCH (17:53)
[2018-07-28] MEDS: methylPREDNISolone SOD SUCCI 125 MG/2 ML VIAL IV SCH (17:54)
[2018-07-28] MEDS: SYMBICORT 80-4.5 MCG INHALER INHALATION SCH (19:10)
[2018-07-28] MEDS ORDERED: IPRATROPIUM-ALBUTEROL 3 ML NEB INHALATION PRN (20:29)
[2018-07-28 20:39] LABS: Glucose,Whole Blood 179 mg/dL (75-99)
[2018-07-28] MEDS: ATORVASTATIN 40 MG TAB PO SCH (20:59)
[2018-07-28] MEDS: LOSARTAN 25 MG TAB PO SCH (21:00)
[2018-07-28] MEDS: METOPROLOL TARTRATE 50 MG TAB PO SCH (21:00)
[2018-07-28] MEDS: LORazepam 1 MG TAB PO SCH (21:00)
[2018-07-28] MEDS: traZODone HCL 100 MG TAB PO SCH (21:00)
[2018-07-28] MEDS: INSULIN ASPART 100 UNIT/ML 1 ML 10 ML VIAL SQ SCH (21:00)
[2018-07-29] MEDS: methylPREDNISolone SOD SUCCI 125 MG/2 ML VIAL IV SCH ×4 (00:04→18:02)
[2018-07-29 06:55] LABS: Glucose,Whole Blood 151 mg/dL (75-99)
[2018-07-29] MEDS: PANTOPRAZOLE 40 MG TABLET PO SCH (07:44)
[2018-07-29] MEDS: INSULIN ASPART 100 UNIT/ML 1 ML 10 ML VIAL SQ SCH ×4 (07:44→21:04)
[2018-07-29] MEDS: MIDODRINE 5 MG TAB PO SCH ×4 (07:45→16:30)
[2018-07-29] MEDS: IPRATROPIUM-ALBUTEROL 3 ML NEB INHALATION SCH ×4 (08:29→19:39)
[2018-07-29] MEDS: METOPROLOL TARTRATE 50 MG TAB PO SCH ×2 (09:20→21:01)
[2018-07-29] MEDS: DONEPEZIL 10 MG TAB PO SCH (09:20)
[2018-07-29] MEDS: busPIRone HCl 10 MG TAB PO SCH ×3 (09:20→21:02)
[2018-07-29] MEDS: CLOPIDOGREL 75 MG TAB PO SCH (09:20)
[2018-07-29] MEDS: LOSARTAN 25 MG TAB PO SCH ×2 (09:20→21:01)
[2018-07-29] MEDS: SODIUM CHLORIDE 0.9% 1,000 ML IV SCH (09:23)
[2018-07-29] MEDS: FUROSEMIDE 40 MG TAB PO SCH (09:24)
[2018-07-29] MEDS: POTASSIUM CHLORIDE ER 20 MEQ TAB.ER PO SCH (09:24)
[2018-07-29] MEDS: ASPIRIN 81 MG PO SCH (09:27)
[2018-07-29] MEDS ORDERED: AZITHROMYCIN 500 MG TAB PO STA (11:10)
[2018-07-29] MEDS ORDERED: guaiFENesin 600 MG TABLET.ER PO SCH (11:15)
[2018-07-29 11:17] LABS: Glucose,Whole Blood 195 mg/dL (75-99)
[2018-07-29 12:48] LABS: VBG PH 7.43 (7.31-7.41)
[2018-07-29 13:04] LABS: Hemoglobin A1C 5.6 % (4.0-6.0)
[2018-07-29] MEDS: SERTRALINE 100 MG TAB PO SCH (13:21)
--- NOTE | 2018-07-29 14:19 | P.CNPUL ---
<Becca Logan E - Last Filed: 07/29/18 14:07> History of Present Illness Consult date: 07/29/18 Requesting physician: Mary Lou Catherine Reason for consult: COPD Chief complaint: Shortness of breath History of present illness: This is a 63-year-old female patient being seen examined and evaluated today for consultation. This patient does have a past medical history of COPD and does currently smoke 2 packs per day since she was 17 years old. Patient states that she was having fevers and chills that started Sunday and her temperature was approximately 100F. She was experiencing shortness of breath with exertion and activity and a congested cough. She was unable to bring up any secretions. She does take Advair at home. Denies any use of any nebulizer treatments. Has been told that she has COPD in the past. Denies every seeing a chip mixer in the past or ever having a PFT. She does have cats at home denies any ALLERGIES. She was admitted for further evaluation and workup. Upon examination the patient is resting up in bed on 3 L of supplemental oxygen via nasal cannula. She does not utilize home oxygen. She is currently on antibiotics and steroids. Her chest x-ray was reviewed and does show right min/ upper lobe possible pneumonia. All labs and reports have been reviewed. Review of Systems 14 point review of systems was completed and is negative unless noted above in the HPI Past Medical History Past Medical History: Cancer, Chest Pain / Angina, COPD, Deep Vein Thrombosis ( DVT), Hyperlipidemia, Hypertension, Myocardial Infarction ([place]), Osteoarthritis ( OA), Vascular Disorder Additional Past Medical History / Comment(s): Hx L Breast Ca 2013-had lumpectomy / radiation, abscess in jaw area, had one time seizure yrs. ago related to a drug reaction, DVT 2 yrs. ago R leg, insomnia off and on. Peripheral Vascular Disease. Last Myocardial Infarction Date:: Jul 2015 History of Any Multi-Drug Resistant Organisms: ESBL Date of last positivie culture/infection: 04/12/18 MDRO Source:: abdomen (pt denies jun 2018 when asked) Past Surgical History: Bowel Resection, Breast Surgery, Cholecystectomy, Heart Catheterization With Stent, Joint Replacement, Orthopedic Surgery Additional Past Surgical History / Comment(s): 02/24/16 PTCA mid and distal RCA. Other surgical hx: hemicolectomy due to polyp not able to be reached with colonoscopy, total R knee, open surgery to L knee, stent R lower extremity, right baby toe amputated. rt leg bypass, fitula surgery done at [facility] Past Anesthesia/Blood Transfusion Reactions: No Reported Reaction Additional Past Anesthesia/Blood Transfusion Reaction / Comment(s): States combative when woke up from anesthesia 1-2 X. Date of Last Stent Placement:: Jul 2015 Past Psychological History: Anxiety, Depression Additional Psychological History / Comment(s): Pt states her anxiety and depression are stable-takes RXs which help. Pt lives alone. [place]. Friend lives with her. Smoking Status: Current every day smoker Past Alcohol Use History: None Reported Additional Past Alcohol Use History / Comment(s): Has been a smoker since she was 17 years of age and used to smoke up to 3-4 packs per day. She was at home and has a roommate that performs [employer] and grocery shops for her. Past Drug Use History: Marijuana - Past Family History Father Family Medical History: Cancer Additional Family Medical History / Comment(s): Father is alive at age 81 with history of prostate cancer. Mother Family Medical History: Cancer Additional Family Medical History / Comment(s): Mother at age 63 and had multiple myeloma. Medications and Allergies Home Medications Medication Instructions Recorded Confirmed Type Sertraline HCl [Zoloft] 200 mg PO DAILY 10/11/15 07/28/18 History Aspirin [Adult Low Dose Aspirin EC] 162 mg PO DAILY 05/17/17 07/28/18 History Clopidogrel [Plavix] 75 mg PO DAILY 05/21/17 07/28/18 History Baclofen [Lioresal] 10 mg PO QID PRN 12/10/17 07/28/18 History busPIRone HCl [Buspar] 10 mg PO TID 12/10/17 07/28/18 History Atorvastatin [Lipitor] 40 mg PO HS 04/12/18 07/28/18 History Donepezil HCl [Aricept] 10 mg PO DAILY 04/12/18 07/28/18 History Fluticasone/Salmeterol [Advair 1 puff INHALATION RT-BID 04/12/18 07/28/18 History 250-50 Diskus] Metoprolol Tartrate [Lopressor] 50 mg PO BID 04/12/18 07/28/18 History Omeprazole Magnesium [PriLOSEC OTC] 20 mg PO DAILY 04/12/18 07/28/18 History rOPINIRole HCL [Requip] 0.5 mg PO BID 04/12/18 07/28/18 History LORazepam [Ativan] 1 mg PO HS PRN 07/08/18 07/28/18 History Losartan [Cozaar] 25 mg PO DAILY 07/08/18 07/28/18 History Pregabalin [Lyrica] 50 mg PO BID 07/28/18 07/28/18 History traZODone HCL 300 mg PO HS 07/28/18 07/28/18 History Allergies Allergy/AdvReac Type Severity Reaction Status Date / Time Iodinated Contrast- Oral and Allergy Unknown Verified 07/28/18 13:38 IV Dye [Iodinated Contrast Media - IV Dye] bupropion HCl AdvReac Severe SEIZURE Verified 07/28/18 12:35 [From Wellbutrin] liothyronine sodium AdvReac Rapid Verified 07/28/18 13:38 [From Cytomel] Heart Rate prochlorperazine AdvReac TONGUE Verified 07/28/18 13:38 [From Compazine] SWELLING prochlorperazine edisylate AdvReac TONGUE Verified 07/28/18 13:38 [From Compazine] SWELLING prochlorperazine maleate AdvReac TONGUE Verified 07/28/18 13:38 [From Compazine] SWELLING Physical Exam Vitals: Vital Signs Temp Pulse Pulse Pulse Resp BP Pulse Ox 07/29/18 12:04 56 L 07/29/18 11:51 56 L 07/29/18 11:04 98.5 F 52 L 18 157/69 96 07/29/18 09:29 16 07/29/18 07:32 98.4 F 62 16 143/55 97 07/29/18 00:16 98.0 F 67 16 138/77 95 07/28/18 23:56 50 L 07/28/18 23:48 50 L 07/28/18 19:58 98.5 F 62 17 149/74 98 07/28/18 15:58 49 L 07/28/18 15:35 50 L 07/28/18 15:25 50 L 07/28/18 14:30 98.0 F 52 L 14 120/63 100 Intake and Output 07/28/18 07/29/18 07/29/18 22:59 06:59 14:59 Intake Total 690 908 120 Balance 690 908 120 Intake: Intake, IV Titration 450 708 Amount Sodium Chloride 0.9% 1, 450 708 000 ml @ 100 mls/hr IV . Q10H [facility] Rx#:[id number] Oral 240 200 120 Other: Voiding Method Diaper Bedside Commode Incontinent Incontinent # Voids 1 2 Weight 72.575 kg GENERAL EXAM: Alert, active, comfortable in no apparent distress. HEAD: Normocephalic. EYES: Normal reaction of pupils, equal size. NOSE: Clear with pink turbinates. THROAT: No erythema or exudates. NECK: No masses, no JVD. CHEST: No chest wall deformity. LUNGS: Lungs noted to be coarse with some rhonchi and wheezing, bases diminished CVS: S1 and S2 normal with no audible mumurs, regular rhythm. ABDOMEN: No hepatosplenomegaly, normal bowel sounds, no guarding or rigidity. EXTREMITIES: trace edema noted, pedal pulses palpable. CENTRAL NERVOUS SYSTEM: No focal deficits, tone is normal in all 4 extremities. Results - Laboratory Findings CBC and BMP: 07/28/18 07:40 07/28/18 07:40 PT/INR, D-dimer PT 10.0 sec (9.0-12.0) 07/28/18 07:40 INR 1.0 (<1.2) 07/28/18 07:40 Abnormal lab findings: Abnormal Labs 07/28/18 07/28/18 07/28/18 07:40 07:40 20:37 RDW 15.9 H Plt Count 87 L Lymphocytes # 0.9 L VBG pH VBG pCO2 VBG HCO3 Chloride 112 H BUN 18 H Glucose 103 H POC Glucose (mg/dL) 179 H Alkaline Phosphatase 135 H 07/29/18 07/29/18 07/29/18 06:53 11:15 12:10 RDW Plt Count Lymphocytes # VBG pH 7.43 H VBG pCO2 28 L VBG HCO3 18 L Chloride BUN Glucose POC Glucose (mg/dL) 151 H 195 H Alkaline Phosphatase - Diagnostic Findings Chest x-ray: report reviewed, image reviewed Assessment and Plan Assessment: Assessment Acute exacerbation of COPD Acute hypoxic respiratory failure requiring supplemental oxygen Possible right-sided pneumonia Nicotine dependence History of hypertension History of DVT 2 years ago CAD Plan Medications have been reviewed and will be continued as ordered. Continue with antibiotics and IV steroid taper Obtain a CT of the chest without contrast Obtain sputum culture Echocardiogram pending Initiate and encourage incentive spirometer and flutter valve Continue with pulmonary hygiene, coughing and deep breathing exercises, and supportive care. Supplemental oxygen to maintain oxygen saturations of 92% or better. Continue nebulizer treatments. GI and DVT prophylaxis. We will continue to monitor labs/results and adjust treatment as necessary. Further recommendations pending. I, the signing physician performed an examination of the patient, discussed and directed their management with the nurse practitioner. I have reviewed the nurse practitioner's note and agree with the documented findings, orders and plan of care. <Roxanna Steve - Last Filed: 07/29/18 14:45> Physical Exam Osteopathic Statement: *. No significant issues noted on an osteopathic structural exam other than those noted in the History and Physical/Consult. Vitals: Vital Signs Temp Pulse Pulse Pulse Resp BP Pulse Ox 07/29/18 12:04 56 L 07/29/18 11:51 56 L 07/29/18 11:04 98.5 F 52 L 18 157/69 96 07/29/18 09:29 16 07/29/18 07:32 98.4 F 62 16 143/55 97 07/29/18 00:16 98.0 F 67 16 138/77 95 07/28/18 23:56 50 L 07/28/18 23:48 50 L 07/28/18 19:58 98.5 F 62 17 149/74 98 07/28/18 15:58 49 L 07/28/18 15:35 50 L 07/28/18 15:25 50 L Intake and Output 07/28/18 07/29/18 07/29/18 22:59 06:59 14:59 Intake Total 690 908 120 Balance 690 908 120 Intake: Intake, IV Titration 450 708 Amount Sodium Chloride 0.9% 1, 450 708 000 ml @ 100 mls/hr IV . Q10H [facility] Rx#:[id number] Oral 240 200 120 Other: Voiding Method Diaper Bedside Commode Incontinent Incontinent # Voids 1 2 Weight 72.575 kg Results - Laboratory Findings CBC and BMP: 07/28/18 07:40 07/28/18 07:40 PT/INR, D-dimer PT 10.0 sec (9.0-12.0) 07/28/18 07:40 INR 1.0 (<1.2) 07/28/18 07:40 Abnormal lab findings: Abnormal Labs 07/28/18 07/28/18 07/28/18 07:40 07:40 20:37 RDW 15.9 H Plt Count 87 L Lymphocytes # 0.9 L VBG pH VBG pCO2 VBG HCO3 Chloride 112 H BUN 18 H Glucose 103 H POC Glucose (mg/dL) 179 H Alkaline Phosphatase 135 H 07/29/18 07/29/18 07/29/18 06:53 11:15 12:10 RDW Plt Count Lymphocytes # VBG pH 7.43 H VBG pCO2 28 L VBG HCO3 18 L Chloride BUN Glucose POC Glucose (mg/dL) 151 H 195 H Alkaline Phosphatase Assessment and Plan Assessment: Patient seen and examined. Will order CT chest without contrast to further assess parenchymal changes. Continue ABX. Sputum culture. Echo pending. Steroid taper. Nicole Butcher. Smoking cessation. Outpatient PFT and consideration for PSG. Supplemental O2. Thank you for this consultation. We will continue to follow along. Check IgE/HP/A1AT/allergy panel. ~Roxanna Steve DO
--- NOTE | 2018-07-29 15:24 | P.HPIM ---
<Lucy Wetzel A - Last Filed: 07/29/18 15:06> History of Present Illness H&P Date: 07/29/18 This is a 62-year-old female patient of Dr. 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 Patient continues to be an active smoker of 2 packs per day. She denies any alcohol use. Patient complains of shortness of breath and she is feeling better today from when she presented. She complains of a wet cough. She states she had a fever on Sunday evening and took ibuprofen and this went away. She denies any other fevers. She denies any sweats. No chest pain. She denies any sore throat. Patient states that she thinks she had a TIA the day before. She was confused at that time but thinks she is better now. Patient is known to have short-term memory loss but has not been diagnosed with dementia. She has a niece that helps her make decisions Patient presented to [facility] emergency center for evaluation. Temperature was normal. Vital signs were stable but heart rate was on the low side with one reading of 47. Chest x-ray showed COPD, borderline cardiomegaly, chronic pleural and parenchymal changes in the left lung base. Cannot exclude tiny bilateral effusions. Platelet count was noted to be only 87. Patient was started on IV steroids and consult placed with pulmonary medicine. Patient admitted to the [facility] floor. Patient does complain of feeling tired as she has not slept in a couple days. Review of Systems All systems: negative Constitutional: Reports fatigue, Reports lethargy, Reports malaise, Reports weakness, Denies chills, Denies fever Eyes: denies blurred vision, denies pain Ears, nose, mouth and throat: Denies headache, Denies sore throat, Denies vertigo Cardiovascular: Reports shortness of breath, Denies chest pain, Denies syncope Respiratory: Reports cough, Reports dyspnea, Denies cough with sputum, Denies excessive sputum, Denies hemoptysis, Denies home oxygen, Denies wheezing Gastrointestinal: Denies abdominal pain, Denies diarrhea, Denies nausea, Denies vomiting Genitourinary: Denies dysuria, Denies hematuria Musculoskeletal: Denies myalgias Integumentary: Denies pruritus, Denies rash Neurological: Denies numbness, Denies weakness Psychiatric: Denies anxiety, Denies depression Endocrine: Denies fatigue, Denies weight change Past Medical History Past Medical History: Cancer, Chest Pain / Angina, COPD, Deep Vein Thrombosis ( DVT), Hyperlipidemia, Hypertension, Myocardial Infarction (MT), Osteoarthritis ( OA), Vascular Disorder Additional Past Medical History / Comment(s): Hx L Breast Ca 2013-had lumpectomy / radiation, abscess in jaw area, had one time seizure yrs. ago related to a drug reaction, DVT 2 yrs. ago R leg, insomnia off and on. Peripheral Vascular Disease. Last Myocardial Infarction Date:: Jul 2015 History of Any Multi-Drug Resistant Organisms: ESBL Date of last positivie culture/infection: 04/12/18 MDRO Source:: abdomen (pt denies jun 2018 when asked) Past Surgical History: Bowel Resection, Breast Surgery, Cholecystectomy, Heart Catheterization With Stent, Joint Replacement, Orthopedic Surgery Additional Past Surgical History / Comment(s): 02/24/16 PTCA mid and distal RCA. Other surgical hx: hemicolectomy due to polyp not able to be reached with colonoscopy, total R knee, open surgery to L knee, stent R lower extremity, right baby toe amputated. rt leg bypass, fitula surgery done at [facility] Past Anesthesia/Blood Transfusion Reactions: No Reported Reaction Additional Past Anesthesia/Blood Transfusion Reaction / Comment(s): States combative when woke up from anesthesia 1-2 X. Date of Last Stent Placement:: Jul 2015 Past Psychological History: Anxiety, Depression Additional Psychological History / Comment(s): Pt states her anxiety and depression are stable-takes RXs which help. Pt lives alone. [place]. Friend lives with her. Smoking Status: Current every day smoker Past Alcohol Use History: None Reported Additional Past Alcohol Use History / Comment(s): Has been a smoker since she was 17 years of age and used to smoke up to 3-4 packs per day. Patient is currently smoking 2 packs per day. She was at home and has a roommate that performs errands and grocery shops for her. Past Drug Use History: Marijuana - Past Family History Father Family Medical History: Cancer Additional Family Medical History / Comment(s): Father is alive at age 81 with history of prostate cancer. Mother Family Medical History: Cancer Additional Family Medical History / Comment(s): Mother at age 63 and had multiple myeloma. Medications and Allergies Home Medications Medication Instructions Recorded Confirmed Type Sertraline HCl [Zoloft] 200 mg PO DAILY 10/11/15 07/28/18 History Aspirin [Adult Low Dose Aspirin EC] 162 mg PO DAILY 05/17/17 07/28/18 History Clopidogrel [Plavix] 75 mg PO DAILY 05/21/17 07/28/18 History Baclofen [Lioresal] 10 mg PO QID PRN 12/10/17 07/28/18 History busPIRone HCl [Buspar] 10 mg PO TID 12/10/17 07/28/18 History Atorvastatin [Lipitor] 40 mg PO HS 04/12/18 07/28/18 History Donepezil HCl [Aricept] 10 mg PO DAILY 04/12/18 07/28/18 History Fluticasone/Salmeterol [Advair 1 puff INHALATION RT-BID 04/12/18 07/28/18 History 250-50 Diskus] Metoprolol Tartrate [Lopressor] 50 mg PO BID 04/12/18 07/28/18 History Omeprazole Magnesium [PriLOSEC OTC] 20 mg PO DAILY 04/12/18 07/28/18 History rOPINIRole HCL [Requip] 0.5 mg PO BID 04/12/18 07/28/18 History LORazepam [Ativan] 1 mg PO HS PRN 07/08/18 07/28/18 History Losartan [Cozaar] 25 mg PO DAILY 07/08/18 07/28/18 History Pregabalin [Lyrica] 50 mg PO BID 07/28/18 07/28/18 History traZODone HCL 300 mg PO HS 07/28/18 07/28/18 History Allergies Allergy/AdvReac Type Severity Reaction Status Date / Time Iodinated Contrast- Oral and Allergy Unknown Verified 07/28/18 13:38 IV Dye [Iodinated Contrast Media - IV Dye] bupropion HCl AdvReac Severe SEIZURE Verified 07/28/18 12:35 [From Wellbutrin] liothyronine sodium AdvReac Rapid Verified 07/28/18 13:38 [From Cytomel] Heart Rate prochlorperazine AdvReac TONGUE Verified 07/28/18 13:38 [From Compazine] SWELLING prochlorperazine edisylate AdvReac TONGUE Verified 07/28/18 13:38 [From Compazine] SWELLING prochlorperazine maleate AdvReac TONGUE Verified 07/28/18 13:38 [From Compazine] SWELLING Physical Exam Vitals: Vital Signs Temp Pulse Pulse Pulse Resp BP BP 07/29/18 11:04 98.5 F 52 L 18 157/69 07/29/18 09:29 16 07/29/18 07:32 98.4 F 62 16 143/55 07/29/18 00:16 98.0 F 67 16 138/77 07/28/18 23:56 50 L 07/28/18 23:48 50 L 07/28/18 19:58 98.5 F 62 17 149/74 07/28/18 15:58 49 L 07/28/18 15:35 50 L 07/28/18 15:25 50 L 07/28/18 14:30 98.0 F 52 L 14 120/63 07/28/18 13:08 97.9 F 54 L 16 147/77 07/28/18 12:36 98.1 F 49 L 20 141/76 07/28/18 12:30 98.1 F 52 L 20 119/56 07/28/18 11:39 55 L 07/28/18 11:30 53 L Pulse Ox 07/29/18 11:04 96 07/29/18 09:29 07/29/18 07:32 97 07/29/18 00:16 95 07/28/18 23:56 07/28/18 23:48 07/28/18 19:58 98 07/28/18 15:58 07/28/18 15:35 07/28/18 15:25 07/28/18 14:30 100 07/28/18 13:08 99 07/28/18 12:36 96 07/28/18 12:30 97 07/28/18 11:39 07/28/18 11:30 Intake and Output 07/28/18 07/29/18 07/29/18 22:59 06:59 14:59 Intake Total 690 908 120 Balance 690 908 120 Intake: Intake, IV Titration 450 708 Amount Sodium Chloride 0.9% 1, 450 708 000 ml @ 100 mls/hr IV . Q10H [facility] Rx#:[id number] Oral 240 200 120 Other: Voiding Method Diaper Bedside Commode Incontinent Incontinent # Voids 1 2 Weight 72.575 kg General appearance: average body habitus, no acute distress - EENT Eyes: PERRLA ENT: normal oropharynx Ears: bilateral: normal - Neck Neck: no lymphadenopathy, normal ROM, no rigidity, no stridor, no thyromegaly - Respiratory Respiratory: bilateral: Diminished with decreased air exchange on the right negative: rales, rhonchi, wheezing, prolonged expiration - Cardiovascular Rhythm: regular Heart sounds: normal: S1, S2 Abnormal Heart Sounds: no systolic murmur, no diastolic murmur - Gastrointestinal General gastrointestinal: distended, no hepatomegaly, normal bowel sounds, no organomegaly, tenderness Localized gastrointestinal: tender: diffuse - Integumentary Integumentary: normal - Neurologic Neurologic: CNII-XII intact - Musculoskeletal Musculoskeletal: generalized weakness - Psychiatric Psychiatric: A&O x's 3, slight confusion about details Results CBC & Chem 7: 07/28/18 07:40 07/28/18 07:40 Labs: Abnormal Lab Results - Last 24 Hours (Table) 07/28/18 07/29/18 Range/Units 20:37 06:53 POC Glucose (mg/dL) 179 H 151 H (75-99) mg/dL Microbiology - Last 24 Hours (Table) 07/28/18 07:40 Blood Culture - Preliminary Blood No Growth after 24 hours Thrombosis Risk Factor Assmnt - DVT/VTE Prophylaxis DVT/VTE Prophylaxis: Pharmacologic Prophylaxis ordered - Choose All That Apply Each Factor Represents 1 point: Abnormal pulmonary function (COPD), Serious lung disease incl. pneumonia (< 1month), Swollen legs (current) Other Risk Factors: Yes Each Risk Factor Represents 2 Points: Age 61-74 years Each Risk Factor Represents 3 Points: Family history of DVT/PE Other congenital or acquired thrombophilia - If yes, enter type in comment: No Thrombosis Risk Factor Assessment Total Risk Factor Score: 8 Thrombosis Risk Factor Assessment Level: High Risk Assessment and Plan Plan: 1. Acute exacerbation of COPD. Continue DuoNeb treatments 4 times daily and every 2 hours as needed, Pulmicort 1 mg twice daily, Solu-Medrol 60 mg IV every 6 hours. Consult with pulmonary medicine appreciated. 2. History of severe peripheral vascular disease status post stent, amputation of the right fifth toe, stable. Continue Lipitor and aspirin 162 mg daily. 3. History of right colectomy 15 years ago at [facility]. 4. Known history of CAD January 2016, status post stent. Continue Lopressor 50 mg twice daily, Cozaar 25 mg twice daily, Lasix 40 mg daily. 5. Breast cancer March 2013, status post lumpectomy. 6. Chronic tobacco dependency. Continue nicotine patch. 7. Hypertension. Patient is usually on Lopressor 50 mg twice daily, Cozaar 25 mg daily, Lasix 40 mg daily. 8. Recurrent depression. Patient is on BuSpar 10 mg twice daily and Zoloft 200 mg daily, trazodone 300 mg at bedtime. 9. History of CVA with short-term memory deficit and possible vascular dementia not previously diagnosed. 10. Thrombocytopenia of unclear etiology. Peripheral smear requested by pathology. 11. DVT prophylaxis. No heparin due to thrombus cytopenia. SENIA sanford and SCDs. 12. GI prophylaxis. Pepcid Patient will be admitted to the hospital for a minimum of 2 night stay. Discharge plan: To be determined. Patient has been at [facility] in the past. Patient will need PT OT evaluation. Impression and plan of care have been directed as dictated by the signing physician. Lucy Wetzel nurse practitioner acting as scribe for signing physician. <Mary Lou Catherine - Last Filed: 08/01/18 21:44> Physical Exam Vitals: Vital Signs Temp Pulse Pulse Pulse Resp BP Pulse Ox 08/01/18 20:44 60 08/01/18 20:29 60 08/01/18 16:16 55 L 08/01/18 16:08 55 L 08/01/18 15:20 97.9 F 16 L 55 L 16 119/60 96 08/01/18 09:07 60 08/01/18 08:54 56 L 08/01/18 06:20 96 F L 50 L 20 147/72 97 07/31/18 23:00 98.3 F 60 17 103/44 90 L Intake and Output 08/01/18 08/01/18 08/01/18 06:59 14:59 22:59 Intake Total 100 850 Balance 100 850 Intake: Intake, IV Titration 50 Amount cefTRIAXone 1,000 mg In 50 Sodium Chloride 0.9% 50 ml @ 100 mls/hr IVPB Q24HR [facility] Rx#:[id number] Oral 100 800 Other: Voiding Method Toilet Bedside Commode Diaper Incontinent # Voids 2 2 Weight 75 kg Results CBC & Chem 7: 08/01/18 08:56 08/01/18 08:56 Labs: Abnormal Lab Results - Last 24 Hours (Table) 08/01/18 08/01/18 08/01/18 Range/Units 07:07 08:56 08:56 RDW 15.9 H (11.5-15.5) % Plt Count 80 L (150-450) k/uL BUN 26 H (7-17) mg/dL Glucose 105 H (74-99) mg/dL POC Glucose (mg/dL) 104 H (75-99) mg/dL Total Protein 6.2 L (6.3-8.2) g/dL Albumin 3.3 L (3.5-5.0) g/dL 08/01/18 08/01/18 08/01/18 Range/Units 12:52 17:32 20:52 RDW (11.5-15.5) % Plt Count (150-450) k/uL BUN (7-17) mg/dL Glucose (74-99) mg/dL POC Glucose (mg/dL) 137 H 142 H 129 H (75-99) mg/dL Total Protein (6.3-8.2) g/dL Albumin (3.5-5.0) g/dL Microbiology - Last 24 Hours (Table) 07/28/18 07:40 Blood Culture - Preliminary Blood No Growth after 96 hours
[2018-07-29] MEDS: HEPARIN SODIUM,PORCINE 5,000 UNIT/ML 1 ML VIAL SQ SCH (16:26)
--- NOTE | 2018-07-29 17:05 | CT ---
EXAMINATION TYPE: CT chest wo con DATE OF EXAM: 07/29/2018 COMPARISON: None HISTORY: SOB CT DLP: 275.3 mGycm. Automated Exposure Control for Dose Reduction was Utilized. TECHNIQUE: CT scan of the thorax is performed without IV contrast. FINDINGS: There is diffuse pulmonary emphysema. There is coarse interstitial infiltrate in the upper lobes with honeycomb pattern in the right upper lobe more than the left. There is honeycomb type interstitial i nfiltrate at the posterior lung bases on the right more than the left. Heart is slightly enlarged. Th ere is evidence chronic vascular calcification. There is no mediastinal adenopathy. There is no pleur al effusion. I see no hilar mass. As the attending aorta measures 3.4 cm. There is no evidence of ane urysm. There is some fluid and thickening of the upper anterior abdominal wall. This appears stable c ompared to 07/03/2018 and consistent with a chronic seroma or hematoma. There is spurring in the thora cic spine. I see no focal bone destruction. There is no pneumothorax. There is 2 mm calculus in the a nterior right kidney. IMPRESSION: Interstitial peripheral pulmonary infiltrates consistent with pulmonary fibrosis. Emphyse ma. No pulmonary mass seen. Pleural scarring noted in the right lung. Mild cardiomegaly.
[2018-07-29] MEDS: SYMBICORT 80-4.5 MCG INHALER INHALATION SCH (17:16)
[2018-07-29 17:32] LABS: Glucose,Whole Blood 180 mg/dL (75-99)
[2018-07-29] MEDS: BUDESONIDE 1 MG/2 ML NEBU INHALATION SCH (19:39)
[2018-07-29 21:00] LABS: Glucose,Whole Blood 225 mg/dL (75-99)
[2018-07-29] MEDS: LORazepam 1 MG TAB PO SCH (21:01)
[2018-07-29] MEDS: guaiFENesin 600 MG TABLET.ER PO SCH (21:01)
[2018-07-29] MEDS: ATORVASTATIN 40 MG TAB PO SCH (21:01)
[2018-07-29] MEDS: traZODone HCL 100 MG TAB PO SCH (21:18)
[2018-07-29] MEDS ORDERED: LOPERAMIDE 2 MG CAP PO PRN (22:06)
[2018-07-30] MEDS: methylPREDNISolone SOD SUCCI 125 MG/2 ML VIAL IV SCH ×2 (00:12→06:24)
[2018-07-30] MEDS: HEPARIN SODIUM,PORCINE 5,000 UNIT/ML 1 ML VIAL SQ SCH ×4 (00:12→23:46)
[2018-07-30] MEDS: LOSARTAN 25 MG TAB PO SCH ×2 (06:34→20:30)
[2018-07-30] MEDS: IPRATROPIUM-ALBUTEROL 3 ML NEB INHALATION SCH ×4 (07:07→20:12)
[2018-07-30] MEDS: BUDESONIDE 1 MG/2 ML NEBU INHALATION SCH ×2 (07:08→20:12)
[2018-07-30] MEDS: FUROSEMIDE 40 MG TAB PO SCH (07:14)
[2018-07-30] MEDS: MIDODRINE 5 MG TAB PO SCH ×3 (07:14→16:39)
[2018-07-30 07:22] LABS: Glucose,Whole Blood 165 mg/dL (75-99)
[2018-07-30] MEDS: busPIRone HCl 10 MG TAB PO SCH ×3 (07:45→20:31)
[2018-07-30] MEDS: guaiFENesin 600 MG TABLET.ER PO SCH ×2 (07:45→20:29)
[2018-07-30] MEDS: ASPIRIN 81 MG PO SCH (07:46)
[2018-07-30] MEDS: SERTRALINE 100 MG TAB PO SCH (07:46)
[2018-07-30] MEDS: DONEPEZIL 10 MG TAB PO SCH (07:46)
[2018-07-30] MEDS: PANTOPRAZOLE 40 MG TABLET PO SCH (07:46)
[2018-07-30] MEDS: CLOPIDOGREL 75 MG TAB PO SCH (07:46)
[2018-07-30] MEDS: AZITHROMYCIN 250 MG TAB PO SCH (07:47)
[2018-07-30] MEDS: INSULIN ASPART 100 UNIT/ML 1 ML 10 ML VIAL SQ SCH ×4 (07:47→21:21)
[2018-07-30] MEDS: POTASSIUM CHLORIDE ER 20 MEQ TAB.ER PO SCH (07:47)
[2018-07-30] MEDS: METOPROLOL TARTRATE 50 MG TAB PO SCH ×2 (07:49→20:34)
[2018-07-30] MEDS ORDERED: FAMOTIDINE 20 MG TAB PO SCH (09:00)
--- NOTE | 2018-07-30 11:09 | P.PN ---
<Becca Logan E - Last Filed: 07/30/18 11:05> Subjective Progress Note Date: 07/30/18 History of present illness: This is a 63-year-old female patient being seen examined and evaluated today for consultation. This patient does have a past medical history of COPD and does currently smoke 2 packs per day since she was 17 years old. Patient states that she was having fevers and chills that started Best and her temperature was approximately 100F. She was experiencing shortness of breath with exertion and activity and a congested cough. She was unable to bring up any secretions. She does take Advair at home. Denies any use of any nebulizer treatments. Has been told that she has COPD in the past. Denies every seeing a lingo cleaner in the past or ever having a PFT. She does have cats at home denies any ALLERGIES. She was admitted for further evaluation and workup. Upon examination the patient is resting up in bed on 3 L of supplemental oxygen via nasal cannula. She does not utilize home oxygen. She is currently on antibiotics and steroids. Her chest x-ray was reviewed and does show right min/ upper lobe possible pneumonia. All labs and reports have been reviewed. Interval history: 07/30/2018patient is being seen examined and evaluated today on rounds. She did undergo a CT of the chest yesterday which did show findings consistent with pulmonary fibrosis, no mass, pleural scarring of the right lung was also noted. Her echocardiogram is pending. She continues resting up in bed on 2 L of supplemental oxygen via nasal cannula. She states her breathing is slightly better today. She did give a sputum sample yesterday however it was contaminated and a repeat specimen will be needed. She continues on antibiotics and IV steroids. She continues to have a congested cough. Objective - Vital Signs Vital signs: Vital Signs Temp 98.6 F 07/30/18 06:19 Pulse 55 L 07/30/18 10:54 Resp 16 07/30/18 07:43 BP 184/78 07/30/18 06:20 Pulse Ox 95 07/30/18 06:19 Intake & Output 07/29/18 07/30/18 07/30/18 18:59 06:59 18:59 Intake Total 120 200 Balance 120 200 Weight 72.575 kg 73 kg Intake: Oral 120 200 Other: Voiding Method Bedside Commode Bedside Commode Incontinent # Voids 5 2 # Bowel Movements 1 - Exam GENERAL EXAM: Alert, active, comfortable in no apparent distress. HEAD: Normocephalic. EYES: Normal reaction of pupils, equal size. NOSE: Clear with pink turbinates. THROAT: No erythema or exudates. NECK: No masses, no JVD. CHEST: No chest wall deformity. LUNGS: Lungs noted to be coarse with some rhonchi and wheezing, bases diminished CVS: S1 and S2 normal with no audible mumurs, regular rhythm. ABDOMEN: No hepatosplenomegaly, normal bowel sounds, no guarding or rigidity. EXTREMITIES: trace edema noted, pedal pulses palpable. CENTRAL NERVOUS SYSTEM: No focal deficits, tone is normal in all 4 extremities. - Labs CBC & Chem 7: 07/28/18 07:40 07/28/18 07:40 Labs: Abnormal Lab Results - Last 24 Hours (Table) 07/29/18 07/29/18 07/29/18 Range/Units 11:15 12:10 17:16 VBG pH 7.43 H (7.31-7.41) VBG pCO2 28 L (37-51) mmHg VBG HCO3 18 L (24-28) mmol/L POC Glucose (mg/dL) 195 H 180 H (75-99) mg/dL 07/29/18 07/30/18 Range/Units 20:47 07:19 VBG pH (7.31-7.41) VBG pCO2 (37-51) mmHg VBG HCO3 (24-28) mmol/L POC Glucose (mg/dL) 225 H 165 H (75-99) mg/dL Microbiology - Last 24 Hours (Table) 07/30/18 07:15 Gram Stain - Final Sputum Sputum Culture - Final 07/28/18 07:40 Blood Culture - Preliminary Blood No Growth after 48 hours Assessment and Plan Assessment: Assessment Acute exacerbation of COPD Acute hypoxic respiratory failure requiring supplemental oxygen Possible right-sided pneumonia Nicotine dependence History of hypertension History of DVT 2 years ago CAD Pulmonary fibrosis on computed tomography scan of 07/29/18 Pleural scarring of the right lung Plan Medications have been reviewed and will be continued as ordered. Continue with antibiotics and IV steroid taper CT of the chest without contrast reviewed and discussed with the patient Obtain repeat sputum culture Echocardiogram pending Initiate and encourage incentive spirometer and flutter valve Continue with pulmonary hygiene, coughing and deep breathing exercises, and supportive care. Supplemental oxygen to maintain oxygen saturations of 92% or better. Continue nebulizer treatments. GI and DVT prophylaxis. We will continue to monitor labs/results and adjust treatment as necessary. Further recommendations pending. I, the signing physician performed an examination of the patient, discussed and directed their management with the nurse practitioner. I have reviewed the nurse practitioner's note and agree with the documented findings, orders and plan of care. <Roxanna Steve A - Last Filed: 07/30/18 11:20> Objective - Vital Signs Vital signs: Vital Signs Temp 98.6 F 07/30/18 06:19 Pulse 55 L 07/30/18 11:09 Resp 16 07/30/18 07:43 BP 184/78 07/30/18 06:20 Pulse Ox 95 07/30/18 06:19 Intake & Output 07/29/18 07/30/18 07/30/18 18:59 06:59 18:59 Intake Total 120 200 Balance 120 200 Weight 72.575 kg 73 kg Intake: Oral 120 200 Other: Voiding Method Bedside Commode Bedside Commode Incontinent # Voids 5 2 # Bowel Movements 1 - Labs CBC & Chem 7: 07/28/18 07:40 07/28/18 07:40 Labs: Abnormal Lab Results - Last 24 Hours (Table) 07/29/18 07/29/18 07/29/18 Range/Units 12:10 17:16 20:47 VBG pH 7.43 H (7.31-7.41) VBG pCO2 28 L (37-51) mmHg VBG HCO3 18 L (24-28) mmol/L POC Glucose (mg/dL) 180 H 225 H (75-99) mg/dL 07/30/18 Range/Units 07:19 VBG pH (7.31-7.41) VBG pCO2 (37-51) mmHg VBG HCO3 (24-28) mmol/L POC Glucose (mg/dL) 165 H (75-99) mg/dL Microbiology - Last 24 Hours (Table) 07/30/18 07:15 Gram Stain - Final Sputum Sputum Culture - Final 07/28/18 07:40 Blood Culture - Preliminary Blood No Growth after 48 hours Assessment and Plan Assessment: Patient seen and examined. Patient states she is feeling much better today. Her breathing is improving. Her CT results are discussed, the patient does have pulmonary fibrosis. We will discuss Alfredito and Miguel as an outpatient after PFT. ~Roxanna Steve, DO
--- NOTE | 2018-07-30 11:58 | ECHOF ---
Referral Reason:ekg changes MEASUREMENTS -------- HEIGHT: 172.7 cm WEIGHT: 72.6 kg BP: RVIDd: 2.7 cm (< 3.3) IVSd: 1.0 cm (0.6 - 1.1) LVIDd: 5.0 cm (3.9 - 5.3) LVPWd: 0.9 cm (0.6 - 1.1) IVSs: 1.6 cm LVIDs: 2.8 cm LVPWs: 1.3 cm LA Diam: 3.6 cm (2.7 - 3.8) LAESV Index (A-L): 22.16 ml/m Ao Diam: 3.0 cm (2.0 - 3.7) AV Cusp: 1.7 cm (1.5 - 2.6) MV EXCURSION: 18.330 mm (> 18.000) MV EF SLOPE: 166 mm/s (70 - 150) EPSS: 0.2 cm MV E Jj: 1.12 m/s MV DecT: 177 ms MV A Jj: 0.36 m/s MV E/A Ratio: 3.10 RAP: 15.00 mmHg RVSP: 57.73 mmHg FINDINGS -------- Sinus rhythm. This was a technically good study. The left ventricular size is normal. Left ventricular wall thickness is normal. Overall left vent ricular systolic function is normal with, an EF between 60 - 65 %. The right ventricle is normal in size. Normal LA size by volume 22+/-6 ml/m2. The right atrium is normal in size. The aortic valve is trileaflet and appears structurally normal. Mild mitral annular calcification present. Mild mitral regurgitation is present. Mild tricuspid regurgitation present. There is severe pulmonary hypertension. The right ventricul ar systolic pressure, as measured by Doppler, is 57.73mmHg. Trace/mild (physiologic) pulmonic regurgitation. The aortic root size is normal. Normal inferior vena cava with less than 50% inspiratory collapse consistent with estimated right atr ial pressure of 15 mmHg. There is no pericardial effusion. CONCLUSIONS -------- 1. Sinus rhythm. 2. This was a technically good study. 3. The left ventricular size is normal. 4. Left ventricular wall thickness is normal. 5. Overall left ventricular systolic function is normal with, an EF between 60 - 65 %. 6. The right ventricle is normal in size. 7. Normal LA size by volume 22+/-6 ml/m2. 8. The right atrium is normal in size. 9. The aortic valve is trileaflet and appears structurally normal. 10. Mild mitral annular calcification present. 11. Mild mitral regurgitation is present. 12. Mild tricuspid regurgitation present. 13. There is severe pulmonary hypertension. 14. The right ventricular systolic pressure, as measured by Doppler, is 57.73mmHg. 15. Trace/mild (physiologic) pulmonic regurgitation. 16. The aortic root size is normal. 17. Normal inferior vena cava with less than 50% inspiratory collapse consistent with estimated right atrial pressure of 15 mmHg. 18. There is no pericardial effusion. DIRECTOR GRAPHICS: Maribel Heaton RDCS
[2018-07-30 12:02] LABS: Glucose,Whole Blood 154 mg/dL (75-99)
[2018-07-30] MEDS: methylPREDNISolone SOD SUCCI 40 MG/ML 1 ML VIAL IV SCH ×2 (12:08→20:30)
[2018-07-30 13:20] LABS: Alt. alternata IgE Class CLASS 0; Alternaria alternata IgE <0.35 kU/L (<0.35); Asperg. fumagatus IgE <0.35 kU/L (<0.35); Asperg. fumagatus IgE Class CLASS 0; Bermuda Grass IgE <0.35 kU/L (<0.35); Birch(Com.Silvr) IgE <0.35 kU/L (<0.35); Birch(Com.Silvr) IgE Class CLASS 0; Cat Epith & Dander IgE <0.35 kU/L (<0.35); Cat Epith & Dander IgE Class CLASS 0; Clad herbarum IgE <0.35 kU/L (<0.35); Cockroach IgE <0.35 kU/L (<0.35); Cottonwood IgE <0.35 kU/L (<0.35); Dermato. Pteronyssinus IgE <0.35 kU/L (<0.35); Dermato. farinae IgE <0.35 kU/L (<0.35); Dermato. farinae IgE Class CLASS 0; Dog Dander IgE <0.35 kU/L (<0.35); Elm IgE <0.35 kU/L (<0.35); Maple (Box Elder) IgE <0.35 kU/L (<0.35); Maple (Box Elder) IgE Class CLASS 0; Mountain Cedar IgE <0.35 kU/L (<0.35); Mountain Cedar IgE Class CLASS 0; Mouse Urine IgE Class CLASS 0; Nettle IgE <0.35 kU/L (<0.35); Nettle IgE Class CLASS 0; Oak IgE <0.35 kU/L (<0.35); Penicillium notatum IgE Class CLASS 0; Rough Marshelder IgE <0.35 kU/L (<0.35); Rough Marshelder IgE Class CLASS 0; Timothy Grass IgE <0.35 kU/L (<0.35); White Ash IgE Class CLASS 0
--- NOTE | 2018-07-30 13:45 | P.PN ---
Subjective Progress Note Date: 07/30/18 This is a 62-year-old female patient of Dr. 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 Patient continues to be an active smoker of 2 packs per day. She denies any alcohol use. Patient complains of shortness of breath and she is feeling better today from when she presented. She complains of a wet cough. She states she had a fever on Sunday evening and took ibuprofen and this went away. She denies any other fevers. She denies any sweats. No chest pain. She denies any sore throat. Patient states that she thinks she had a TIA the day before. She was confused at that time but thinks she is better now. Patient is known to have short-term memory loss but has not been diagnosed with dementia. She has a niece that helps her make decisions Patient presented to [facility] for evaluation. Temperature was normal. Vital signs were stable but heart rate was on the low side with one reading of 47. Chest x-ray showed COPD, borderline cardiomegaly, chronic pleural and parenchymal changes in the left lung base. Cannot exclude tiny bilateral effusions. Platelet count was noted to be only 87. Patient was started on IV steroids and consult placed with pulmonary medicine. Patient admitted to the [facility] floor. Patient does complain of feeling tired as she has not slept in a couple days. 07/30: Blood sugars run between 154 and 255 secondary to steroids. Patient states that her breathing is much improved from yesterday. Solu-Medrol has been decreased to 40 mg every 12 hours by pulmonary medicine. Patient had diarrhea during the night for which Lomotil was added. She states her last bowel movement was yesterday. No current concern for C. difficile colitis at this time. Sputum cultures and finalized with oral smita. Blood cultures no growth after 48 hours. Review of systems: Constitutional: No fever, no chills, no night sweats. No weight change. + weakness, +fatigue. EENT: No headache. No blurred vision or double vision, no loss of vision. No loss of Hearing, no ringing in the ears, no dizziness. Lungs: shortness of breath improved, no cough, + sputum production. Cardiovascular: No chest pain, no lower extremity edema. No palpitations. No paroxysmal nocturnal dyspnea. No orthopnea. No lightheadedness or dizziness. No syncopal episodes. Abdominal: No abdominal pain. No nausea, vomiting. No diarrhea. No constipation. No bloody or tarry stools.. No loss of appetite. Genitourinary: No dysuria, increased frequency, urgency. No urinary retention. Musculoskeletal: No myalgias. + muscle weakness, no gait dysfunction, no frequent falls. Integumentary: +wounds, no lesions. No rash or pruritus. No unusual bruising. Objective - Vital Signs Vital signs: Vital Signs Temp 98.6 F 07/30/18 06:19 Pulse 80 07/30/18 07:31 Resp 16 07/30/18 06:19 BP 184/78 07/30/18 06:20 Pulse Ox 95 07/30/18 06:19 Intake & Output 07/29/18 07/30/18 07/30/18 18:59 06:59 18:59 Intake Total 120 200 Balance 120 200 Weight 72.575 kg 73 kg Intake: Oral 120 200 Other: Voiding Method Bedside Commode Bedside Commode Incontinent # Voids 5 2 # Bowel Movements 1 - Exam General appearance: average body habitus, no acute distress - EENT Eyes: PERRLA ENT: normal oropharynx Ears: bilateral: normal - Neck Neck: no lymphadenopathy, normal ROM, no rigidity, no stridor, no thyromegaly - Respiratory Respiratory: bilateral: Diminished with scattered rhonchi negative, prolonged expiration: rales, wheezing - Cardiovascular Rhythm: regular Heart sounds: normal: S1, S2 Abnormal Heart Sounds: no systolic murmur, no diastolic murmur - Gastrointestinal General gastrointestinal: distended, no hepatomegaly, normal bowel sounds, no organomegaly, tenderness Localized gastrointestinal: tender: diffuse - Integumentary Integumentary: normal - Neurologic Neurologic: CNII-XII intact - Musculoskeletal Musculoskeletal: generalized weakness - Psychiatric Psychiatric: A&O x's 3, slight confusion about details - Labs CBC & Chem 7: 07/28/18 07:40 07/28/18 07:40 Labs: Abnormal Lab Results - Last 24 Hours (Table) 07/29/18 07/29/18 07/29/18 Range/Units 11:15 12:10 17:16 VBG pH 7.43 H (7.31-7.41) VBG pCO2 28 L (37-51) mmHg VBG HCO3 18 L (24-28) mmol/L POC Glucose (mg/dL) 195 H 180 H (75-99) mg/dL 07/29/18 07/30/18 Range/Units 20:47 07:19 VBG pH (7.31-7.41) VBG pCO2 (37-51) mmHg VBG HCO3 (24-28) mmol/L POC Glucose (mg/dL) 225 H 165 H (75-99) mg/dL Microbiology - Last 24 Hours (Table) 07/28/18 07:40 Blood Culture - Preliminary Blood No Growth after 24 hours Assessment and Plan Plan: 1. Acute exacerbation of COPD. Continue DuoNeb treatments 4 times daily and every 2 hours as needed, Pulmicort 1 mg twice daily, decrease Solu-Medrol 40 mg IV every 12 hours. Consult with pulmonary medicine appreciated. Continue ceftriaxone and azithromycin. 2. History of severe peripheral vascular disease status post stent, amputation of the right fifth toe, stable. Continue Lipitor and aspirin 162 mg daily. 3. History of right colectomy 15 years ago at [facility]. 4. Known history of CAD January 2016, status post stent. Continue Lopressor 50 mg twice daily, Cozaar 25 mg twice daily, Lasix 40 mg daily. 5. Breast cancer March 2013, status post lumpectomy. 6. Chronic tobacco dependency. Continue nicotine patch. 7. Hypertension. Patient is usually on Lopressor 50 mg twice daily, Cozaar 25 mg daily, Lasix 40 mg daily. 8. Recurrent depression. Patient is on BuSpar 10 mg twice daily and Zoloft 200 mg daily, trazodone 300 mg at bedtime. 9. History of CVA with short-term memory deficit and possible vascular dementia not previously diagnosed. 10. Thrombocytopenia of unclear etiology. Peripheral smear requested by pathology. 11. DVT prophylaxis. No heparin due to thrombocytopenia. SENIA sanford and SCDs. 12. GI prophylaxis. Pepcid Discharge plan: To be determined. Patient has been at [facility] in the past. PT has recommended subacute rehab. Impression and plan of care have been directed as dictated by the signing physician. Lucy Wetzel nurse practitioner acting as scribe for signing physician.
[2018-07-30 17:13] LABS: Glucose,Whole Blood 180 mg/dL (75-99)
[2018-07-30] MEDS: ATORVASTATIN 40 MG TAB PO SCH (20:29)
[2018-07-30] MEDS: traZODone HCL 100 MG TAB PO SCH (20:30)
[2018-07-30] MEDS: LORazepam 1 MG TAB PO SCH (20:33)
[2018-07-30 20:53] LABS: Glucose,Whole Blood 165 mg/dL (75-99)
[2018-07-31 07:10] LABS: Glucose,Whole Blood 122 mg/dL (75-99)
[2018-07-31] MEDS: INSULIN ASPART 100 UNIT/ML 1 ML 10 ML VIAL SQ SCH ×4 (07:20→21:43)
[2018-07-31] MEDS: HEPARIN SODIUM,PORCINE 5,000 UNIT/ML 1 ML VIAL SQ SCH ×2 (08:02→15:43)
[2018-07-31] MEDS: MIDODRINE 5 MG TAB PO SCH ×3 (08:02→15:43)
[2018-07-31] MEDS: ASPIRIN 81 MG PO SCH (08:02)
[2018-07-31] MEDS: PANTOPRAZOLE 40 MG TABLET PO SCH (08:02)
[2018-07-31] MEDS: AZITHROMYCIN 250 MG TAB PO SCH (08:03)
[2018-07-31] MEDS: DONEPEZIL 10 MG TAB PO SCH (08:03)
[2018-07-31] MEDS: CLOPIDOGREL 75 MG TAB PO SCH (08:03)
[2018-07-31] MEDS: busPIRone HCl 10 MG TAB PO SCH ×3 (08:03→21:37)
[2018-07-31] MEDS: FUROSEMIDE 40 MG TAB PO SCH (08:04)
[2018-07-31] MEDS: guaiFENesin 600 MG TABLET.ER PO SCH ×2 (08:04→21:38)
[2018-07-31] MEDS: METOPROLOL TARTRATE 50 MG TAB PO SCH (08:04)
[2018-07-31] MEDS: methylPREDNISolone SOD SUCCI 40 MG/ML 1 ML VIAL IV SCH (08:04)
[2018-07-31] MEDS: LOSARTAN 25 MG TAB PO SCH ×2 (08:04→21:37)
[2018-07-31] MEDS: IPRATROPIUM-ALBUTEROL 3 ML NEB INHALATION SCH ×4 (08:04→20:36)
[2018-07-31] MEDS: BUDESONIDE 1 MG/2 ML NEBU INHALATION SCH ×2 (08:04→20:36)
[2018-07-31] MEDS: POTASSIUM CHLORIDE ER 20 MEQ TAB.ER PO SCH (08:05)
[2018-07-31] MEDS: SERTRALINE 100 MG TAB PO SCH (08:05)
[2018-07-31 12:02] LABS: Alpha 1 Anti-Trypsin 182 mg/dL (90 - 200)
[2018-07-31 12:07] LABS: HCT 39.8 % (34.0-46.0); HGB 12.8 gm/dL (11.4-16.0); MCH 26.5 pg (25.0-35.0); MCHC 32.2 g/dL (31.0-37.0); MCV 82.2 fL (80.0-100.0); Mean Platelet Volume 8.4; RBC 4.84 m/uL (3.80-5.40); RDW 15.9 % (11.5-15.5); WBC 7.3 k/uL (3.8-10.6)
[2018-07-31 12:10] LABS: Platelet Count 95 k/uL (150-450)
[2018-07-31 12:14] LABS: Glucose,Whole Blood 134 mg/dL (75-99)
[2018-07-31 12:21] LABS: Calcium 8.7 mg/dL (8.4-10.2); Potassium 3.9 mmol/L (3.5-5.1)
--- NOTE | 2018-07-31 12:30 | P.PN ---
<Becca Logan E - Last Filed: 07/31/18 12:26> Subjective Progress Note Date: 07/31/18 History of present illness: This is a 63-year-old female patient being seen examined and evaluated today for consultation. This patient does have a past medical history of COPD and does currently smoke 2 packs per day since she was 17 years old. Patient states that she was having fevers and chills that started Best and her temperature was approximately 100F. She was experiencing shortness of breath with exertion and activity and a congested cough. She was unable to bring up any secretions. She does take Advair at home. Denies any use of any nebulizer treatments. Has been told that she has COPD in the past. Denies every seeing a clinical care leader in the past or ever having a PFT. She does have cats at home denies any ALLERGIES. She was admitted for further evaluation and workup. Upon examination the patient is resting up in bed on 3 L of supplemental oxygen via nasal cannula. She does not utilize home oxygen. She is currently on antibiotics and steroids. Her chest x-ray was reviewed and does show right min/ upper lobe possible pneumonia. All labs and reports have been reviewed. Interval history: 07/30/2018patient is being seen examined and evaluated today on rounds. She did undergo a CT of the chest yesterday which did show findings consistent with pulmonary fibrosis, no mass, pleural scarring of the right lung was also noted. Her echocardiogram is pending. She continues resting up in bed on 2 L of supplemental oxygen via nasal cannula. She states her breathing is slightly better today. She did give a sputum sample yesterday however it was contaminated and a repeat specimen will be needed. She continues on antibiotics and IV steroids. She continues to have a congested cough. 07/31/2018is being seen examined and evaluated today on rounds. She is resting up in bed on 2 L of supplemental oxygen via nasal cannula. She feels her breathing is somewhat improved. Her ALLERGY panel came back was negative for any environmental ALLERGIES. Her IgE was elevated at 609. She does have an occasional cough and feels that starting to become less congested. She is afebrile no further complaints Objective - Vital Signs Vital signs: Vital Signs Temp 98.2 F 07/31/18 06:17 Pulse 62 07/31/18 08:14 Resp 18 07/31/18 06:17 BP 185/75 07/31/18 06:17 Pulse Ox 96 07/31/18 06:17 Intake & Output 07/30/18 07/31/18 07/31/18 18:59 06:59 18:59 Weight 73.5 kg Other: Voiding Method Bedside Commode # Voids 5 3 - Exam GENERAL EXAM: Alert, active, comfortable in no apparent distress. HEAD: Normocephalic. EYES: Normal reaction of pupils, equal size. NOSE: Clear with pink turbinates. THROAT: No erythema or exudates. NECK: No masses, no JVD. CHEST: No chest wall deformity. LUNGS: Lungs noted to be coarse with some rhonchi and wheezing, bases diminished CVS: S1 and S2 normal with no audible mumurs, regular rhythm. ABDOMEN: No hepatosplenomegaly, normal bowel sounds, no guarding or rigidity. EXTREMITIES: trace edema noted, pedal pulses palpable. CENTRAL NERVOUS SYSTEM: No focal deficits, tone is normal in all 4 extremities. - Labs CBC & Chem 7: 07/31/18 11:16 07/31/18 11:16 Labs: Abnormal Lab Results - Last 24 Hours (Table) 07/29/18 07/30/18 07/30/18 Range/Units 11:56 17:09 20:52 RDW (11.5-15.5) % Plt Count (150-450) k/uL BUN (7-17) mg/dL Glucose (74-99) mg/dL POC Glucose (mg/dL) 180 H 165 H (75-99) mg/dL IgE 609.0 H (<114.0) IU/mL 07/31/18 07/31/18 07/31/18 Range/Units 07:06 11:16 11:16 RDW 15.9 H (11.5-15.5) % Plt Count 95 L (150-450) k/uL BUN 22 H (7-17) mg/dL Glucose 179 H (74-99) mg/dL POC Glucose (mg/dL) 122 H (75-99) mg/dL IgE (<114.0) IU/mL 07/31/18 Range/Units 12:05 RDW (11.5-15.5) % Plt Count (150-450) k/uL BUN (7-17) mg/dL Glucose (74-99) mg/dL POC Glucose (mg/dL) 134 H (75-99) mg/dL IgE (<114.0) IU/mL Microbiology - Last 24 Hours (Table) 07/28/18 07:40 Blood Culture - Preliminary Blood No Growth after 72 hours 07/30/18 07:15 Gram Stain - Final Sputum Sputum Culture - Final Assessment and Plan Assessment: Assessment Acute exacerbation of COPD Acute hypoxic respiratory failure requiring supplemental oxygen Possible right-sided pneumonia Nicotine dependence History of hypertension History of DVT 2 years ago CAD Pulmonary fibrosis on computed tomography scan of 07/29/18 Pleural scarring of the right lung Plan Medications have been reviewed and will be continued as ordered. Continue with antibiotics and steroid taper CT of the chest without contrast reviewed and discussed with the patient Patient will need close outpatient follow-up and treatment options in regards to her pulmonary fibrosis. Obtain repeat sputum culture Echocardiogram pending Initiate and encourage incentive spirometer and flutter valve Continue with pulmonary hygiene, coughing and deep breathing exercises, and supportive care. Supplemental oxygen to maintain oxygen saturations of 92% or better. Continue nebulizer treatments. GI and DVT prophylaxis. We will continue to monitor labs/results and adjust treatment as necessary. Further recommendations pending. I, the signing physician performed an examination of the patient, discussed and directed their management with the nurse practitioner. I have reviewed the nurse practitioner's note and agree with the documented findings, orders and plan of care. <Roxanna Steve - Last Filed: 07/31/18 15:21> Objective - Vital Signs Vital signs: Vital Signs Temp 98.2 F 07/31/18 06:17 Pulse 64 07/31/18 13:34 Resp 18 07/31/18 06:17 BP 185/75 07/31/18 06:17 Pulse Ox 96 07/31/18 06:17 Intake & Output 07/30/18 07/31/18 07/31/18 18:59 06:59 18:59 Weight 73.5 kg Other: Voiding Method Bedside Commode # Voids 5 3 - Labs CBC & Chem 7: 07/31/18 11:16 07/31/18 11:16 Labs: Abnormal Lab Results - Last 24 Hours (Table) 07/28/18 07/30/18 07/30/18 Range/Units 07:40 17:09 20:52 RDW (11.5-15.5) % Plt Count (150-450) k/uL Pathologist Review See comment A BUN (7-17) mg/dL Glucose (74-99) mg/dL POC Glucose (mg/dL) 180 H 165 H (75-99) mg/dL 07/31/18 07/31/18 07/31/18 Range/Units 07:06 11:16 11:16 RDW 15.9 H (11.5-15.5) % Plt Count 95 L (150-450) k/uL Pathologist Review BUN 22 H (7-17) mg/dL Glucose 179 H (74-99) mg/dL POC Glucose (mg/dL) 122 H (75-99) mg/dL 07/31/18 Range/Units 12:05 RDW (11.5-15.5) % Plt Count (150-450) k/uL Pathologist Review BUN (7-17) mg/dL Glucose (74-99) mg/dL POC Glucose (mg/dL) 134 H (75-99) mg/dL Microbiology - Last 24 Hours (Table) 07/28/18 07:40 Blood Culture - Preliminary Blood No Growth after 72 hours Assessment and Plan Assessment: Patient seen and examined. Allergy panel negative, elevated IgE. Ofev and Esbriet will be discussed outpatient. Smoking cessation. Severe Pulmonary hypertension, RVSP 57 mmHg, patient will be referred to PH specialist, Dr. Rivera. Continue Duonebs, Pulmicort, ABX, steroid tapers. ~Roxanna Steve DO
--- NOTE | 2018-07-31 14:58 | P.PN ---
Subjective Progress Note Date: 07/31/18 This is a 62-year-old female patient of Dr. 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 Patient continues to be an active smoker of 2 packs per day. She denies any alcohol use. Patient complains of shortness of breath and she is feeling better today from when she presented. She complains of a wet cough. She states she had a fever on Sunday evening and took ibuprofen and this went away. She denies any other fevers. She denies any sweats. No chest pain. She denies any sore throat. Patient states that she thinks she had a TIA the day before. She was confused at that time but thinks she is better now. Patient is known to have short-term memory loss but has not been diagnosed with dementia. She has a niece that helps her make decisions Patient presented to [facility] emergency center for evaluation. Temperature was normal. Vital signs were stable but heart rate was on the low side with one reading of 47. Chest x-ray showed COPD, borderline cardiomegaly, chronic pleural and parenchymal changes in the left lung base. Cannot exclude tiny bilateral effusions. Platelet count was noted to be only 87. Patient was started on IV steroids and consult placed with pulmonary medicine. Patient admitted to the [facility] floor. Patient does complain of feeling tired as she has not slept in a couple days. 07/30: Blood sugars run between 154 and 255 secondary to steroids. Patient states that her breathing is much improved from yesterday. Solu-Medrol has been decreased to 40 mg every 12 hours by pulmonary medicine. Patient had diarrhea during the night for which Lomotil was added. She states her last bowel movement was yesterday. No current concern for C. difficile colitis at this time. Sputum cultures and finalized with oral smita. Blood cultures no growth after 48 hours. 07/31: Patient is breathing status continues to improve and we will switch her over to oral prednisone today. ALLERGY testing has been done which is negative but IgG elevated. Alpha-1 antitrypsin testing is normal phenotype. Discussed with patient need for subacute rehab as PT has recommended. Patient is going to be discharged to rehab. Anticipate discharge on Sunday. Review of systems: Constitutional: No fever, no chills, no night sweats. No weight change. + weakness, +fatigue. EENT: No headache. No blurred vision or double vision, no loss of vision. No loss of Hearing, no ringing in the ears, no dizziness. Lungs: no shortness of breath, no cough, no sputum production. Cardiovascular: No chest pain, no lower extremity edema. No palpitations. No paroxysmal nocturnal dyspnea. No orthopnea. No lightheadedness or dizziness. No syncopal episodes. Abdominal: No abdominal pain. No nausea, vomiting. No diarrhea. No constipation. No bloody or tarry stools.. No loss of appetite. Genitourinary: No dysuria, increased frequency, urgency. No urinary retention. Musculoskeletal: No myalgias. + muscle weakness, no gait dysfunction, no frequent falls. Integumentary: +wounds, no lesions. No rash or pruritus. No unusual bruising. Objective - Vital Signs Vital signs: Vital Signs Temp 98.2 F 07/31/18 06:17 Pulse 62 07/31/18 08:14 Resp 18 07/31/18 06:17 BP 185/75 07/31/18 06:17 Pulse Ox 96 07/31/18 06:17 Intake & Output 07/30/18 07/31/18 07/31/18 18:59 06:59 18:59 Weight 73.5 kg Other: # Voids 5 3 - Exam General appearance: average body habitus, no acute distress - EENT Eyes: PERRLA ENT: normal oropharynx Ears: bilateral: normal - Neck Neck: no lymphadenopathy, normal ROM, no rigidity, no stridor, no thyromegaly - Respiratory Respiratory: bilateral: Diminished with coarse rhonchi, prolonged expiration: rales, wheezing - Cardiovascular Rhythm: regular Heart sounds: normal: S1, S2 Abnormal Heart Sounds: no systolic murmur, no diastolic murmur - Gastrointestinal General gastrointestinal: distended, no hepatomegaly, normal bowel sounds, no organomegaly, tenderness Localized gastrointestinal: tender: diffuse - Integumentary Integumentary: normal - Neurologic Neurologic: CNII-XII intact - Musculoskeletal Musculoskeletal: generalized weakness - Psychiatric Psychiatric: A&O x's 3, slight confusion about details - Labs CBC & Chem 7: 07/31/18 11:16 07/31/18 11:16 Labs: Abnormal Lab Results - Last 24 Hours (Table) 07/29/18 07/30/18 07/30/18 Range/Units 11:56 11:29 17:09 POC Glucose (mg/dL) 154 H 180 H (75-99) mg/dL IgE 609.0 H (<114.0) IU/mL 07/30/18 07/31/18 Range/Units 20:52 07:06 POC Glucose (mg/dL) 165 H 122 H (75-99) mg/dL IgE (<114.0) IU/mL Microbiology - Last 24 Hours (Table) 07/30/18 07:15 Gram Stain - Final Sputum Sputum Culture - Final 07/28/18 07:40 Blood Culture - Preliminary Blood No Growth after 48 hours Assessment and Plan Plan: 1. Acute exacerbation of COPD. Continue DuoNeb treatments 4 times daily and every 2 hours as needed, Pulmicort 1 mg twice daily, decrease Solu-Medrol to oral prednisone. Consult with pulmonary medicine appreciated. Continue ceftriaxone and azithromycin. 2. History of severe peripheral vascular disease status post stent, amputation of the right fifth toe, stable. Continue Lipitor and aspirin 162 mg daily. 3. History of right colectomy 15 years ago at [facility]. 4. Known history of CAD January 2016, status post stent. Continue Lopressor 50 mg twice daily, Cozaar 25 mg twice daily, Lasix 40 mg daily. 5. Breast cancer March 2013, status post lumpectomy. 6. Chronic tobacco dependency. Continue nicotine patch. 7. Hypertension. Patient is usually on Lopressor 50 mg twice daily, Cozaar 25 mg daily, Lasix 40 mg daily. 8. Recurrent depression. Patient is on BuSpar 10 mg twice daily and Zoloft 200 mg daily, trazodone 300 mg at bedtime. 9. History of CVA with short-term memory deficit and possible vascular dementia not previously diagnosed. 10. Thrombocytopenia of unclear etiology. Peripheral smear requested by pathology. 11. DVT prophylaxis. No heparin due to thrombocytopenia. SENIA sanford and SCDs. 12. GI prophylaxis. Pepcid [facility] Impression and plan of care have been directed as dictated by the signing physician. Lucy Wetzel nurse practitioner acting as scribe for signing physician.
[2018-07-31 15:56] VITALS: BMI 24.6
[2018-07-31 17:21] LABS: Glucose,Whole Blood 137 mg/dL (75-99)
[2018-07-31 21:04] LABS: Glucose,Whole Blood 157 mg/dL (75-99)
[2018-07-31] MEDS: traZODone HCL 100 MG TAB PO SCH (21:37)
[2018-07-31] MEDS: ATORVASTATIN 40 MG TAB PO SCH (21:38)
[2018-07-31] MEDS: LORazepam 1 MG TAB PO SCH (21:38)
[2018-08-01] MEDS: METOPROLOL TARTRATE 50 MG TAB PO SCH ×3 (00:08→20:22)
[2018-08-01] MEDS: HEPARIN SODIUM,PORCINE 5,000 UNIT/ML 1 ML VIAL SQ SCH ×4 (00:13→23:03)
[2018-08-01 07:10] LABS: Glucose,Whole Blood 104 mg/dL (75-99)
[2018-08-01] MEDS: INSULIN ASPART 100 UNIT/ML 1 ML 10 ML VIAL SQ SCH ×4 (07:46→20:55)
[2018-08-01] MEDS: AZITHROMYCIN 250 MG TAB PO SCH (08:14)
[2018-08-01] MEDS: busPIRone HCl 10 MG TAB PO SCH ×3 (08:15→20:21)
[2018-08-01] MEDS: predniSONE 20 MG TAB PO SCH (08:15)
[2018-08-01] MEDS: DONEPEZIL 10 MG TAB PO SCH (08:16)
[2018-08-01] MEDS: FUROSEMIDE 40 MG TAB PO SCH (08:16)
[2018-08-01] MEDS: ASPIRIN 81 MG PO SCH (08:16)
[2018-08-01] MEDS: SERTRALINE 100 MG TAB PO SCH (08:17)
[2018-08-01] MEDS: guaiFENesin 600 MG TABLET.ER PO SCH ×2 (08:17→20:22)
[2018-08-01] MEDS: LOSARTAN 25 MG TAB PO SCH ×2 (08:17→20:22)
[2018-08-01] MEDS: CLOPIDOGREL 75 MG TAB PO SCH (08:18)
[2018-08-01] MEDS: POTASSIUM CHLORIDE ER 20 MEQ TAB.ER PO SCH (08:18)
[2018-08-01] MEDS: PANTOPRAZOLE 40 MG TABLET PO SCH (08:18)
[2018-08-01] MEDS: MIDODRINE 5 MG TAB PO SCH ×3 (08:33→18:17)
[2018-08-01] MEDS: IPRATROPIUM-ALBUTEROL 3 ML NEB INHALATION SCH ×4 (08:51→20:28)
[2018-08-01] MEDS: BUDESONIDE 1 MG/2 ML NEBU INHALATION SCH ×2 (08:51→20:28)
[2018-08-01 09:52] LABS: Basophils % (A) 0 %; Eosinophils % (A) 1 %; HCT 39.4 % (34.0-46.0); HGB 12.9 gm/dL (11.4-16.0); Lymphocytes # (A) 1.4 k/uL (1.0-4.8); Lymphocytes % (A) 30 %; MCH 27.2 pg (25.0-35.0); MCHC 32.7 g/dL (31.0-37.0); MCV 83.2 fL (80.0-100.0); Mean Platelet Volume 8.6; Monocytes # (A) 0.3 k/uL (0-1.0); Monocytes % (A) 7 %; Neutrophils # (A) 2.8 k/uL (1.3-7.7); Neutrophils % (A) 61 %; RBC 4.73 m/uL (3.80-5.40); RDW 15.9 % (11.5-15.5); WBC 4.5 k/uL (3.8-10.6)
[2018-08-01 09:57] LABS: Platelet Count 80 k/uL (150-450)
[2018-08-01 10:02] LABS: Albumin 3.3 g/dL (3.5-5.0); Calcium 8.8 mg/dL (8.4-10.2); Potassium 3.5 mmol/L (3.5-5.1); Total Bilirubin 0.7 mg/dL (0.2-1.3); Total Protein 6.2 g/dL (6.3-8.2)
--- NOTE | 2018-08-01 10:15 | P.PN ---
Subjective Progress Note Date: 08/01/18 History of present illness: This is a 63-year-old female patient being seen examined and evaluated today for consultation. This patient does have a past medical history of COPD and does currently smoke 2 packs per day since she was 17 years old. Patient states that she was having fevers and chills that started Best and her temperature was approximately 100F. She was experiencing shortness of breath with exertion and activity and a congested cough. She was unable to bring up any secretions. She does take Advair at home. Denies any use of any nebulizer treatments. Has been told that she has COPD in the past. 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 She does have cats at home denies any ALLERGIES. She was admitted for further evaluation and workup. Upon examination the patient is resting up in bed on 3 L of supplemental oxygen via nasal cannula. She does not utilize home oxygen. She is currently on antibiotics and steroids. Her chest x-ray was reviewed and does show right min/ upper lobe possible pneumonia. All labs and reports have been reviewed. Interval history: 07/30/2018patient is being seen examined and evaluated today on rounds. She did undergo a CT of the chest yesterday which did show findings consistent with pulmonary fibrosis, no mass, pleural scarring of the right lung was also noted. Her echocardiogram is pending. She continues resting up in bed on 2 L of supplemental oxygen via nasal cannula. She states her breathing is slightly better today. She did give a sputum sample yesterday however it was contaminated and a repeat specimen will be needed. She continues on antibiotics and IV steroids. She continues to have a congested cough. 07/31/2018is being seen examined and evaluated today on rounds. She is resting up in bed on 2 L of supplemental oxygen via nasal cannula. She feels her breathing is somewhat improved. Her ALLERGY panel came back was negative for any environmental ALLERGIES. Her IgE was elevated at 609. She does have an occasional cough and feels that starting to become less congested. She is afebrile no further complaints 08/01/18- patient is being seen examined and evaluated today on rounds. She is resting up in bed on 2 L of supplemental oxygen via nasal cannula her oxygen saturations are 95%. We will trial the patient off of oxygen. Will do a home oxygen assessment. Patient states she's feeling much better today. She is requesting to go home. All labs and reports reviewed. Objective - Vital Signs Vital signs: Vital Signs Temp 96 F L 08/01/18 06:20 Pulse 60 08/01/18 09:07 Resp 20 08/01/18 06:20 BP 147/72 08/01/18 06:20 Pulse Ox 97 08/01/18 06:20 Intake & Output 07/31/18 08/01/18 08/01/18 18:59 06:59 18:59 Intake Total 850 100 50 Balance 850 100 50 Weight 73.5 kg 75 kg Intake: Intake, IV Titration 50 Amount cefTRIAXone 1,000 mg In 50 Sodium Chloride 0.9% 50 ml @ 100 mls/hr IVPB Q24HR [facility] Rx#:[id number] Oral 850 100 Other: Voiding Method Bedside Commode Toilet # Voids 3 2 # Bowel Movements 1 - Exam GENERAL EXAM: Alert, active, comfortable in no apparent distress. HEAD: Normocephalic. EYES: Normal reaction of pupils, equal size. NOSE: Clear with pink turbinates. THROAT: No erythema or exudates. NECK: No masses, no JVD. CHEST: No chest wall deformity. LUNGS: Lungs noted to be coarse with some wheezing, bases diminished, overall improving slowly CVS: S1 and S2 normal with no audible mumurs, regular rhythm. ABDOMEN: No hepatosplenomegaly, normal bowel sounds, no guarding or rigidity. EXTREMITIES: trace edema noted, pedal pulses palpable. CENTRAL NERVOUS SYSTEM: No focal deficits, tone is normal in all 4 extremities. - Labs CBC & Chem 7: 08/01/18 08:56 08/01/18 08:56 Labs: Abnormal Lab Results - Last 24 Hours (Table) 07/28/18 07/31/18 07/31/18 Range/Units 07:40 11:16 11:16 RDW 15.9 H (11.5-15.5) % Plt Count 95 L (150-450) k/uL Pathologist Review See comment A BUN 22 H (7-17) mg/dL Glucose 179 H (74-99) mg/dL POC Glucose (mg/dL) (75-99) mg/dL Total Protein (6.3-8.2) g/dL Albumin (3.5-5.0) g/dL 10/08/0807/31/18 07/31/18 Range/Units 12:05 17:19 20:55 RDW (11.5-15.5) % Plt Count (150-450) k/uL Pathologist Review BUN (7-17) mg/dL Glucose (74-99) mg/dL POC Glucose (mg/dL) 134 H 137 H 157 H (75-99) mg/dL Total Protein (6.3-8.2) g/dL Albumin (3.5-5.0) g/dL 08/01/18 08/01/18 08/01/18 Range/Units 07:07 08:56 08:56 RDW 15.9 H (11.5-15.5) % Plt Count 80 L (150-450) k/uL Pathologist Review BUN 26 H (7-17) mg/dL Glucose 105 H (74-99) mg/dL POC Glucose (mg/dL) 104 H (75-99) mg/dL Total Protein 6.2 L (6.3-8.2) g/dL Albumin 3.3 L (3.5-5.0) g/dL Microbiology - Last 24 Hours (Table) 07/28/18 07:40 Blood Culture - Preliminary Blood No Growth after 96 hours Assessment and Plan Assessment: Assessment Acute exacerbation of COPD Acute hypoxic respiratory failure requiring supplemental oxygen Possible right-sided pneumonia Nicotine dependence History of hypertension History of DVT 2 years ago CAD Pulmonary fibrosis on computed tomography scan of 07/29/18 Pleural scarring of the right lung Plan Patient is cleared from pulmonary standpoint for discharge Medications have been reviewed and will be continued as ordered. Continue with antibiotics and steroid taper CT of the chest without contrast reviewed and discussed with the patient Patient will need close outpatient follow-up and treatment options in regards to her pulmonary fibrosis. Obtain repeat sputum culture Echocardiogram reviewed EF of 60-65% with RVSP of 57.73 mmHg She'll also benefit from an outpatient sleep study. Initiate and encourage incentive spirometer and flutter valve Continue with pulmonary hygiene, coughing and deep breathing exercises, and supportive care. Supplemental oxygen to maintain oxygen saturations of 92% or better. Continue nebulizer treatments. GI and DVT prophylaxis. We will continue to monitor labs/results and adjust treatment as necessary. Further recommendations pending. I, the signing physician performed an examination of the patient, discussed and directed their management with the nurse practitioner. I have reviewed the nurse practitioner's note and agree with the documented findings, orders and plan of care.
--- NOTE | 2018-08-01 12:50 | P.PN ---
Subjective Progress Note Date: 08/01/18 This is a 62-year-old female patient of Dr. 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 Patient continues to be an active smoker of 2 packs per day. She denies any alcohol use. Patient complains of shortness of breath and she is feeling better today from when she presented. She complains of a wet cough. She states she had a fever on Sunday evening and took ibuprofen and this went away. She denies any other fevers. She denies any sweats. No chest pain. She denies any sore throat. Patient states that she thinks she had a TIA the day before. She was confused at that time but thinks she is better now. Patient is known to have short-term memory loss but has not been diagnosed with dementia. She has a niece that helps her make decisions Patient presented to [facility] emergency center for evaluation. Temperature was normal. Vital signs were stable but heart rate was on the low side with one reading of 47. Chest x-ray showed COPD, borderline cardiomegaly, chronic pleural and parenchymal changes in the left lung base. Cannot exclude tiny bilateral effusions. Platelet count was noted to be only 87. Patient was started on IV steroids and consult placed with pulmonary medicine. Patient admitted to the [facility] floor. Patient does complain of feeling tired as she has not slept in a couple days. 07/30: Blood sugars run between 154 and 255 secondary to steroids. Patient states that her breathing is much improved from yesterday. Solu-Medrol has been decreased to 40 mg every 12 hours by pulmonary medicine. Patient had diarrhea during the night for which Lomotil was added. She states her last bowel movement was yesterday. No current concern for C. difficile colitis at this time. Sputum cultures and finalized with oral smita. Blood cultures no growth after 48 hours. 07/31: Patient is breathing status continues to improve and we will switch her over to oral prednisone today. ALLERGY testing has been done which is negative but IgG elevated. Alpha-1 antitrypsin testing is normal phenotype. Discussed with patient need for subacute rehab as PT has recommended. Patient is going to be discharged to rehab. Anticipate discharge on Sunday. 08/01 patient currently on room air and breathing comfortably. He is unable to come out of bed due to increased weakness. Continue 40 mg prednisone. Pulmonary following. Plan for subacute rehab tomorrow Review of systems: Constitutional: No fever, no chills, no night sweats. No weight change. + weakness, +fatigue. EENT: No headache. No blurred vision or double vision, no loss of vision. No loss of Hearing, no ringing in the ears, no dizziness. Lungs: no shortness of breath, no cough, no sputum production. Cardiovascular: No chest pain, no lower extremity edema. No palpitations. No paroxysmal nocturnal dyspnea. No orthopnea. No lightheadedness or dizziness. No syncopal episodes. Abdominal: No abdominal pain. No nausea, vomiting. No diarrhea. No constipation. No bloody or tarry stools.. No loss of appetite. Genitourinary: No dysuria, increased frequency, urgency. No urinary retention. Musculoskeletal: No myalgias. + muscle weakness, no gait dysfunction, no frequent falls. Integumentary: +wounds, no lesions. No rash or pruritus. No unusual bruising. Objective - Vital Signs Vital signs: Vital Signs Temp 96 F L 08/01/18 06:20 Pulse 60 08/01/18 09:07 Resp 20 08/01/18 06:20 BP 147/72 08/01/18 06:20 Pulse Ox 97 08/01/18 06:20 Intake & Output 07/31/18 08/01/18 08/01/18 18:59 06:59 18:59 Intake Total 850 100 50 Balance 850 100 50 Weight 73.5 kg 75 kg Intake: Intake, IV Titration 50 Amount cefTRIAXone 1,000 mg In 50 Sodium Chloride 0.9% 50 ml @ 100 mls/hr IVPB Q24HR [facility] Rx#:[id number] Oral 850 100 Other: Voiding Method Bedside Commode Toilet # Voids 3 2 # Bowel Movements 1 - Exam GENERAL: This is a 63-year-old male in no apparent distress at the time of my examination. HEENT: Head is atraumatic, normocephalic. Pupils are equal, round. Sclerae anicteric. Conjunctivae are clear. Mucous membranes of the mouth are moist. Neck is supple. There is no jugular venous distention. No carotid bruit is heard. LUNGS: Clear to auscultation no wheezes, rales or rhonchi. No chest wall tenderness is noted on palpation or with deep breathing. HEART: Regular rate and rhythm without murmurs, rubs or gallops. S1 and S2 heard. ABDOMEN: Soft, nontender. Bowel sounds are heard. No organomegaly noted. EXTREMITIES: 2+ peripheral pulses with no evidence of peripheral edema and no calf tenderness noted. NEUROLOGIC: Patient is awake, alert and oriented x3. - Labs CBC & Chem 7: 08/01/18 08:56 08/01/18 08:56 Labs: Abnormal Lab Results - Last 24 Hours (Table) 07/28/18 07/31/18 07/31/18 Range/Units 07:40 17:19 20:55 RDW (11.5-15.5) % Plt Count (150-450) k/uL Pathologist Review See comment A BUN (7-17) mg/dL Glucose (74-99) mg/dL POC Glucose (mg/dL) 137 H 157 H (75-99) mg/dL Total Protein (6.3-8.2) g/dL Albumin (3.5-5.0) g/dL 08/01/18 08/01/18 08/01/18 Range/Units 07:07 08:56 08:56 RDW 15.9 H (11.5-15.5) % Plt Count 80 L (150-450) k/uL Pathologist Review BUN 26 H (7-17) mg/dL Glucose 105 H (74-99) mg/dL POC Glucose (mg/dL) 104 H (75-99) mg/dL Total Protein 6.2 L (6.3-8.2) g/dL Albumin 3.3 L (3.5-5.0) g/dL Microbiology - Last 24 Hours (Table) 07/28/18 07:40 Blood Culture - Preliminary Blood No Growth after 96 hours Assessment and Plan Plan: 1. Acute exacerbation of COPD. Continue DuoNeb treatments 4 times daily and every 2 hours as needed, Pulmicort 1 mg twice daily, decrease Solu-Medrol to oral prednisone. Consult with pulmonary medicine appreciated. Continue ceftriaxone and azithromycin. CT chest with pulmonary fibrosis finding. Need follow-up with pulmonary as outpatient 2. History of severe peripheral vascular disease status post stent, amputation of the right fifth toe, stable. Continue Lipitor and aspirin 162 mg daily. 3. History of right colectomy 15 years ago at [facility]. 4. Known history of CAD January 2016, status post stent. Continue Lopressor 50 mg twice daily, Cozaar 25 mg twice daily, Lasix 40 mg daily. 5. Breast cancer March 2013, status post lumpectomy. 6. Chronic tobacco dependency. Continue nicotine patch. 7. Hypertension. Patient is usually on Lopressor 50 mg twice daily, Cozaar 25 mg daily, Lasix 40 mg daily. 8. Recurrent depression. Patient is on BuSpar 10 mg twice daily and Zoloft 200 mg daily, trazodone 300 mg at bedtime. 9. History of CVA with short-term memory deficit and possible vascular dementia not previously diagnosed. 10. Thrombocytopenia of unclear etiology. Peripheral smear requested by pathology. 11. DVT prophylaxis. No heparin due to thrombocytopenia. SENIA [place]ford and SCDs. 12. GI prophylaxis. Pepcid Discharge plan: [facility] on Sunday
[2018-08-01 12:58] LABS: Glucose,Whole Blood 137 mg/dL (75-99)
[2018-08-01 17:34] LABS: Glucose,Whole Blood 142 mg/dL (75-99)
[2018-08-01] MEDS: LORazepam 1 MG TAB PO SCH (20:21)
[2018-08-01] MEDS: ATORVASTATIN 40 MG TAB PO SCH (20:22)
[2018-08-01] MEDS: traZODone HCL 100 MG TAB PO SCH (20:22)
[2018-08-01 20:57] LABS: Glucose,Whole Blood 129 mg/dL (75-99)
[2018-08-02 07:27] LABS: Glucose,Whole Blood 120 mg/dL (75-99)
[2018-08-02] MEDS: INSULIN ASPART 100 UNIT/ML 1 ML 10 ML VIAL SQ SCH ×4 (07:53→21:54)
[2018-08-02] MEDS: MIDODRINE 5 MG TAB PO SCH ×3 (07:53→17:32)
[2018-08-02] MEDS: IPRATROPIUM-ALBUTEROL 3 ML NEB INHALATION SCH ×4 (08:10→20:46)
[2018-08-02] MEDS: BUDESONIDE 1 MG/2 ML NEBU INHALATION SCH ×2 (08:10→20:45)
[2018-08-02] MEDS: PANTOPRAZOLE 40 MG TABLET PO SCH (09:32)
[2018-08-02] MEDS: HEPARIN SODIUM,PORCINE 5,000 UNIT/ML 1 ML VIAL SQ SCH ×2 (09:32→17:28)
[2018-08-02] MEDS: ASPIRIN 81 MG PO SCH (09:32)
[2018-08-02] MEDS: FUROSEMIDE 40 MG TAB PO SCH (09:33)
[2018-08-02] MEDS: busPIRone HCl 10 MG TAB PO SCH ×3 (09:33→20:36)
[2018-08-02] MEDS: DONEPEZIL 10 MG TAB PO SCH (09:33)
[2018-08-02] MEDS: CLOPIDOGREL 75 MG TAB PO SCH (09:33)
[2018-08-02] MEDS: AZITHROMYCIN 250 MG TAB PO SCH (09:33)
[2018-08-02] MEDS: METOPROLOL TARTRATE 50 MG TAB PO SCH ×2 (09:34→20:38)
[2018-08-02] MEDS: LOSARTAN 25 MG TAB PO SCH ×2 (09:34→20:38)
[2018-08-02] MEDS: guaiFENesin 600 MG TABLET.ER PO SCH ×2 (09:34→20:37)
[2018-08-02] MEDS: POTASSIUM CHLORIDE ER 20 MEQ TAB.ER PO SCH (09:34)
[2018-08-02] MEDS: predniSONE 20 MG TAB PO SCH (09:35)
[2018-08-02] MEDS: SERTRALINE 100 MG TAB PO SCH (09:35)
--- NOTE | 2018-08-02 11:28 | P.DS ---
<Mariza Platt A - Last Filed: 08/02/18 11:36> Providers Date of admission: 07/30/18 16:22 Attending physician: Adelfo Niño Consults: 07/29/18 11:08 Consult Physician Routine Consulting Provider: Huan Ramon Consult Reason/Comments: COPD exac Do you want consulting provider notified?: Yes Primary care physician: Macarena Pathak [facility] Course: This is a 62-year-old female patient of Dr. 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 Patient continues to be an active smoker of 2 packs per day. She denies any alcohol use. Patient complains of shortness of breath and she is feeling better today from when she presented. She complains of a wet cough. She states she had a fever on Sunday evening and took ibuprofen and this went away. She denies any other fevers. She denies any sweats. No chest pain. She denies any sore throat. Patient states that she thinks she had a TIA the day before. She was confused at that time but thinks she is better now. Patient is known to have short-term memory loss but has not been diagnosed with dementia. She has a niece that helps her make decisions Patient presented to [facility] emergency center for evaluation. Temperature was normal. Vital signs were stable but heart rate was on the low side with one reading of 47. Chest x-ray showed COPD, borderline cardiomegaly, chronic pleural and parenchymal changes in the left lung base. Cannot exclude tiny bilateral effusions. Platelet count was noted to be only 87. Patient was started on IV steroids and consult placed with pulmonary medicine. Patient admitted to the [facility] floor. Patient does complain of feeling tired as she has not slept in a couple days. 07/30: Blood sugars run between 154 and 255 secondary to steroids. Patient states that her breathing is much improved from yesterday. Solu-Medrol has been decreased to 40 mg every 12 hours by pulmonary medicine. Patient had diarrhea during the night for which Lomotil was added. She states her last bowel movement was yesterday. No current concern for C. difficile colitis at this time. Sputum cultures and finalized with oral smita. Blood cultures no growth after 48 hours. 07/31: Patient is breathing status continues to improve and we will switch her over to oral prednisone today. ALLERGY testing has been done which is negative but IgG elevated. Alpha-1 antitrypsin testing is normal phenotype. Discussed with patient need for subacute rehab as PT has recommended. Patient is going to be discharged to rehab. Anticipate discharge on Sunday. 08/01 patient currently on room air and breathing comfortably. He is unable to come out of bed due to increased weakness. Continue 40 mg prednisone. Pulmonary following. Plan for subacute rehab tomorrow 08/02: Patient is sitting up in bed and breathing comfortably on room air. Pt to be discharged today to subacute rehab at [facility] [address] per Physical Therapy. Continue taking prednisone daily and Augmentin. Review of systems: No Change Constitutional: No fever, no chills, no night sweats. No weight change. + weakness, +fatigue. EENT: No headache. No blurred vision or double vision, no loss of vision. No loss of Hearing, no ringing in the ears, no dizziness. Lungs: no shortness of breath, no cough, no sputum production. Cardiovascular: No chest pain, no lower extremity edema. No palpitations. No paroxysmal nocturnal dyspnea. No orthopnea. No lightheadedness or dizziness. No syncopal episodes. Abdominal: No abdominal pain. No nausea, vomiting. No diarrhea. No constipation. No bloody or tarry stools.. No loss of appetite. Genitourinary: No dysuria, increased frequency, urgency. No urinary retention. Musculoskeletal: No myalgias. + muscle weakness, no gait dysfunction, no frequent falls. Integumentary: +wounds, no lesions. No rash or pruritus. No unusual bruising. Exam GENERAL: This is a 63-year-old male in no apparent distress at the time of my examination. HEENT: Head is atraumatic, normocephalic. Pupils are equal, round. Sclerae anicteric. Conjunctivae are clear. Mucous membranes of the mouth are moist. Neck is supple. There is no jugular venous distention. No carotid bruit is heard. LUNGS: Clear to auscultation no wheezes, rales or rhonchi. No chest wall tenderness is noted on palpation or with deep breathing. HEART: Regular rate and rhythm without murmurs, rubs or gallops. S1 and S2 heard. ABDOMEN: Soft, nontender. Bowel sounds are heard. No organomegaly noted. EXTREMITIES: 2+ peripheral pulses with no evidence of peripheral edema and no calf tenderness noted. NEUROLOGIC: Patient is awake, alert and oriented x3. Discharge Diagnosis: 1. Acute exacerbation of COPD. 2. History of severe peripheral vascular disease status post stent, amputation of the right fifth toe, stable. 3. Known history of CAD January 2016, status post stent. 4. Chronic tobacco dependency. Continue nicotine patch. 5. Hypertension. 6. Recurrent depression. 7. History of CVA with short-term memory deficit and possible vascular dementia not previously diagnosed. 8. Thrombocytopenia of unclear etiology. Peripheral smear requested by pathology. Discharge Disposition: [facility] [address] CC copy to Dr. Pathak Patient Condition at Discharge: Stable Plan - Discharge Summary Discharge Rx Participant: Yes New Discharge Prescriptions: New Budesonide [Pulmicort] 1 mg INHALATION RT-BID nebu Furosemide [Lasix] 40 mg PO DAILY tab guaiFENesin [Mucinex] 1,200 mg PO Q12HR tablet.er Ipratropium-Albuterol Nebulize [Duoneb 0.5 mg-3 mg/3 ml Soln] 3 ml INHALATION RT-QID ampul.neb oxyCODONE-APAP 10-325MG [Percocet 10-325 mg] 1 tab PO Q6HR PRN 3 Days #12 tab PRN Reason: Pain Potassium Chloride ER [K-Dur 20] 20 meq PO DAILY tab.er.prt predniSONE 40 mg PO DAILY #0 tab Amoxic-Pot Clav 875-125Mg [Augmentin 875-125] 1 tab PO Q12HR #10 tablet Continue Sertraline HCl [Zoloft] 200 mg PO DAILY Aspirin [Adult Low Dose Aspirin EC] 162 mg PO DAILY Clopidogrel [Plavix] 75 mg PO DAILY busPIRone HCl [Buspar] 10 mg PO TID Baclofen [Lioresal] 10 mg PO QID PRN PRN Reason: Pain Metoprolol Tartrate [Lopressor] 50 mg PO BID rOPINIRole HCL [Requip] 0.5 mg PO BID Fluticasone/Salmeterol [Advair 250-50 Diskus] 1 puff INHALATION RT-BID Omeprazole Magnesium [PriLOSEC OTC] 20 mg PO DAILY Donepezil HCl [Aricept] 10 mg PO DAILY Atorvastatin [Lipitor] 40 mg PO HS LORazepam [Ativan] 1 mg PO HS PRN PRN Reason: Anxiety Losartan [Cozaar] 25 mg PO DAILY Pregabalin [Lyrica] 50 mg PO BID Changed traZODone HCL 200 mg PO HS #0 Discharge Medication List Sertraline HCl [Zoloft] 200 mg PO DAILY 10/11/15 [History] Aspirin [Adult Low Dose Aspirin EC] 162 mg PO DAILY 05/17/17 [History] Clopidogrel [Plavix] 75 mg PO DAILY 05/21/17 [History] Baclofen [Lioresal] 10 mg PO QID PRN 12/10/17 [History] busPIRone HCl [Buspar] 10 mg PO TID 12/10/17 [History] Atorvastatin [Lipitor] 40 mg PO HS 04/12/18 [History] Donepezil HCl [Aricept] 10 mg PO DAILY 04/12/18 [History] Fluticasone/Salmeterol [Advair 250-50 Diskus] 1 puff INHALATION RT-BID 04/12/18 [History] Metoprolol Tartrate [Lopressor] 50 mg PO BID 04/12/18 [History] Omeprazole Magnesium [PriLOSEC OTC] 20 mg PO DAILY 04/12/18 [History] rOPINIRole HCL [Requip] 0.5 mg PO BID 04/12/18 [History] LORazepam [Ativan] 1 mg PO HS PRN 07/08/18 [History] Losartan [Cozaar] 25 mg PO DAILY 07/08/18 [History] Pregabalin [Lyrica] 50 mg PO BID 07/28/18 [History] Amoxic-Pot Clav 875-125Mg [Augmentin 875-125] 1 tab PO Q12HR #10 tablet [Rx] Budesonide [Pulmicort] 1 mg INHALATION RT-BID nebu 08/02/18 [Rx] Furosemide [Lasix] 40 mg PO DAILY tab 08/02/18 [Rx] Ipratropium-Albuterol Nebulize [Duoneb 0.5 mg-3 mg/3 ml Soln] 3 ml INHALATION RT -QID ampul.neb 08/02/18 [Rx] Potassium Chloride ER [K-Dur 20] 20 meq PO DAILY tab.er.prt 08/02/18 [Rx] guaiFENesin [Mucinex] 1,200 mg PO Q12HR tablet.er 08/02/18 [Rx] oxyCODONE-APAP 10-325MG [Percocet 10-325 mg] 1 tab PO Q6HR PRN 3 Days #12 tab [Rx] predniSONE 40 mg PO DAILY #0 tab 08/02/18 [Rx] traZODone HCL 200 mg PO HS #0 08/02/18 [Rx] Follow up Appointment(s)/Referral(s): Macarena Pathak MD [Primary Care Provider] - 08/05/18 10:30 am Roxanna Steve DO [Doctor of Osteopathic Medicine] - 08/05/18 9:00 am ([address] [facility] [place], [NON-STAFF] - 1 Week Activity/Diet/Wound Care/Special Instructions: Cardiac diet NO smoking, cessation information provided. Activity as tolerated, fall precautions, up with assist, keep heels elevated Right calvin wound clean daily and apply therahoney.. <Mary Lou Catherine - Last Filed: 08/02/18 11:52> Hospital Course: Patient will bes ent on prednisone 40 mg for 5 days and augmentin for another 5 days ( total 10 days )
[2018-08-02 11:32] LABS: Glucose,Whole Blood 142 mg/dL (75-99)
[2018-08-02 12:43] LABS: Alternaria Alternata IgG 6.8 mcg/mL (< 13.6); Aspergillus fumigatus IgG Not detected (Not detected); Aureobasidium pullulans IgG 8.3 mcg/mL (< 13.6); Cladosporium herbarium IgG 47.1 mcg/mL (< 14.7); Phoma ssp. IgG 8.3 mcg/mL (< 6.6); Saccaharomospora viridis Not detected (Not detected); Saccaharopoly. rectivirgula Not detected (Not detected)
--- NOTE | 2018-08-02 15:13 | P.PN ---
Subjective Progress Note Date: 08/02/18 History of present illness: This is a 63-year-old female patient being seen examined and evaluated today for consultation. This patient does have a past medical history of COPD and does currently smoke 2 packs per day since she was 17 years old. Patient states that she was having fevers and chills that started Best and her temperature was approximately 100F. She was experiencing shortness of breath with exertion and activity and a congested cough. She was unable to bring up any secretions. She does take Advair at home. Denies any use of any nebulizer treatments. Has been told that she has COPD in the past. Denies every seeing a object oriented developer in the past or ever having a PFT. She does have cats at home denies any ALLERGIES. She was admitted for further evaluation and workup. Upon examination the patient is resting up in bed on 3 L of supplemental oxygen via nasal cannula. She does not utilize home oxygen. She is currently on antibiotics and steroids. Her chest x-ray was reviewed and does show right min/ upper lobe possible pneumonia. All labs and reports have been reviewed. Interval history: 07/30/2018patient is being seen examined and evaluated today on rounds. She did undergo a CT of the chest yesterday which did show findings consistent with pulmonary fibrosis, no mass, pleural scarring of the right lung was also noted. Her echocardiogram is pending. She continues resting up in bed on 2 L of supplemental oxygen via nasal cannula. She states her breathing is slightly better today. She did give a sputum sample yesterday however it was contaminated and a repeat specimen will be needed. She continues on antibiotics and IV steroids. She continues to have a congested cough. 07/31/2018is being seen examined and evaluated today on rounds. She is resting up in bed on 2 L of supplemental oxygen via nasal cannula. She feels her breathing is somewhat improved. Her ALLERGY panel came back was negative for any environmental ALLERGIES. Her IgE was elevated at 609. She does have an occasional cough and feels that starting to become less congested. She is afebrile no further complaints 08/01/18- patient is being seen examined and evaluated today on rounds. She is resting up in bed on 2 L of supplemental oxygen via nasal cannula her oxygen saturations are 95%. We will trial the patient off of oxygen. Will do a home oxygen assessment. Patient states she's feeling much better today. She is requesting to go home. All labs and reports reviewed. 09/02/18- patient seen examined and evaluated. SHe is feeling much better today , will be going to rehab. SHe is on room air. breathing is improved. All labs and reports reviewed. agree with discharge planning. Objective - Vital Signs Vital signs: Vital Signs Temp 98.3 F 08/02/18 06:20 Pulse 68 08/02/18 12:11 Resp 20 08/02/18 06:20 BP 123/59 08/02/18 06:20 Pulse Ox 91 L 08/02/18 08:12 Intake & Output 08/01/18 08/02/18 08/02/18 18:59 06:59 18:59 Intake Total 850 200 Balance 850 200 Weight 75.5 kg Intake: Intake, IV Titration 50 Amount cefTRIAXone 1,000 mg In 50 Sodium Chloride 0.9% 50 ml @ 100 mls/hr IVPB Q24HR MA[facility]IC[facility] Rx#:[id number] Oral 800 200 Other: Voiding Method Toilet Toilet Bedside Commode Bedside Commode Bedside Commode Diaper Diaper Incontinent Incontinent # Voids 2 1 1 # Bowel Movements 1 - Exam GENERAL EXAM: Alert, active, comfortable in no apparent distress. HEAD: Normocephalic. EYES: Normal reaction of pupils, equal size. NOSE: Clear with pink turbinates. THROAT: No erythema or exudates. NECK: No masses, no JVD. CHEST: No chest wall deformity. LUNGS: Lungs noted to have few faint wheezes, bases diminished, overall improving CVS: S1 and S2 normal with no audible mumurs, regular rhythm. ABDOMEN: No hepatosplenomegaly, normal bowel sounds, no guarding or rigidity. EXTREMITIES: trace edema noted, pedal pulses palpable. CENTRAL NERVOUS SYSTEM: No focal deficits, tone is normal in all 4 extremities. - Labs CBC & Chem 7: 08/01/18 08:56 08/01/18 08:56 Labs: Abnormal Lab Results - Last 24 Hours (Table) 07/29/18 08/01/18 08/01/18 Range/Units 11:56 17:32 20:52 POC Glucose (mg/dL) 142 H 129 H (75-99) mg/dL Cladosporium herbar IgG 47.1 H (< 14.7) mcg/mL Penicillium notatum IgG 21.1 H (< 17.5) mcg/mL Phoma species IgG Ab 8.3 H (< 6.6) mcg/mL 08/02/18 08/02/18 Range/Units 07:18 11:29 POC Glucose (mg/dL) 120 H 142 H (75-99) mg/dL Cladosporium herbar IgG (< 14.7) mcg/mL Penicillium notatum IgG (< 17.5) mcg/mL Phoma species IgG Ab (< 6.6) mcg/mL Microbiology - Last 24 Hours (Table) 07/28/18 07:40 Blood Culture - Preliminary Blood No Growth after 120 hours Assessment and Plan Assessment: Assessment Acute exacerbation of COPD Acute hypoxic respiratory failure requiring supplemental oxygen Possible right-sided pneumonia Nicotine dependence History of hypertension History of DVT 2 years ago CAD Pulmonary fibrosis on computed tomography scan of 07/29/18 Pleural scarring of the right lung Plan Patient is cleared from pulmonary standpoint for discharge Medications have been reviewed and will be continued as ordered. Continue with antibiotics and steroid taper CT of the chest without contrast reviewed and discussed with the patient Patient will need close outpatient follow-up and treatment options in regards to her pulmonary fibrosis. Obtain repeat sputum culture Echocardiogram reviewed EF of 60-65% with RVSP of 57.73 mmHg She'll also benefit from an outpatient sleep study. Initiate and encourage incentive spirometer and flutter valve Continue with pulmonary hygiene, coughing and deep breathing exercises, and supportive care. Supplemental oxygen to maintain oxygen saturations of 92% or better. Continue nebulizer treatments. GI and DVT prophylaxis. We will continue to monitor labs/results and adjust treatment as necessary. Further recommendations pending. I, the signing physician performed an examination of the patient, discussed and directed their management with the nurse practitioner. I have reviewed the nurse practitioner's note and agree with the documented findings, orders and plan of care.
[2018-08-02 17:18] LABS: Glucose,Whole Blood 200 mg/dL (75-99)
[2018-08-02] MEDS: LORazepam 1 MG TAB PO SCH (20:36)
[2018-08-02] MEDS: traZODone HCL 100 MG TAB PO SCH (20:37)
[2018-08-02] MEDS: ATORVASTATIN 40 MG TAB PO SCH (20:38)
[2018-08-02 20:55] LABS: Glucose,Whole Blood 174 mg/dL (75-99)
[2018-08-02] MEDS ORDERED: LORazepam 1 MG TAB PO STA (22:05)
[2018-08-03] MEDS: HEPARIN SODIUM,PORCINE 5,000 UNIT/ML 1 ML VIAL SQ SCH ×2 (00:22→07:42)
[2018-08-03 06:28] VITALS: BP 144/75; RESP 16; TEMP 97.9
[2018-08-03 07:07] LABS: Glucose,Whole Blood 108 mg/dL (75-99)
[2018-08-03] MEDS: INSULIN ASPART 100 UNIT/ML 1 ML 10 ML VIAL SQ SCH ×2 (07:33→13:15)
[2018-08-03] MEDS: FUROSEMIDE 40 MG TAB PO SCH (07:39)
[2018-08-03] MEDS: POTASSIUM CHLORIDE ER 20 MEQ TAB.ER PO SCH (07:40)
[2018-08-03] MEDS: guaiFENesin 600 MG TABLET.ER PO SCH (07:40)
[2018-08-03] MEDS: SERTRALINE 100 MG TAB PO SCH (07:40)
[2018-08-03] MEDS: METOPROLOL TARTRATE 50 MG TAB PO SCH (07:40)
[2018-08-03] MEDS: predniSONE 20 MG TAB PO SCH (07:40)
[2018-08-03] MEDS: AZITHROMYCIN 250 MG TAB PO SCH (07:41)
[2018-08-03] MEDS: LOSARTAN 25 MG TAB PO SCH (07:41)
[2018-08-03] MEDS: busPIRone HCl 10 MG TAB PO SCH (07:41)
[2018-08-03] MEDS: DONEPEZIL 10 MG TAB PO SCH (07:41)
[2018-08-03] MEDS: CLOPIDOGREL 75 MG TAB PO SCH (07:41)
[2018-08-03] MEDS: ASPIRIN 81 MG PO SCH (07:41)
[2018-08-03] MEDS: PANTOPRAZOLE 40 MG TABLET PO SCH (07:41)
[2018-08-03] MEDS: MIDODRINE 5 MG TAB PO SCH ×2 (07:41→13:13)
[2018-08-03] MEDS: IPRATROPIUM-ALBUTEROL 3 ML NEB INHALATION SCH ×2 (08:51→12:22)
[2018-08-03] MEDS: BUDESONIDE 1 MG/2 ML NEBU INHALATION SCH (08:52)
[2018-08-03 09:06] VITALS: PULSE 66
[2018-08-03 12:23] LABS: Glucose,Whole Blood 159 mg/dL (75-99)
--- NOTE | 2018-08-03 17:37 | PN ---
PROGRESS NOTE She was seen again on 08/03/2018. She has been hemodynamically stable. She is at her baseline as far as shortness of breath is concerned. On physical examination, blood pressure is 144/75, respiratory rate of 16, pulse rate of 62, temperature 97.9, O2 saturation on room air is 94%. HEENT was pupils that are equal. Chest reveals decreased breath sounds. Prolonged expiration. No wheeze. Cardiovascular system reveals an S1, S2. Abdomen is soft. There is no pedal edema. IMPRESSION: At this time: 1. Asthma and chronic obstructive pulmonary disease with acute exacerbation. 2. Medical debility. I agree with possible discharge back to the residential. Continue her current medications which were reviewed. We would be happy to see her in the outpatient setting if need be. KARI / JAMIEN: [id number] /
== END 2018-08-03 14:06 | DRG 190 ==
LOC: EC 06:55 → 3SUR 12:04 → 4MS4W 07-29 08:37 → OBSVTOIN 07-30 16:22
PROVIDERS: ADMIT Internal Medicine Geriatric Medicine; ATTEND Internal Medicine Geriatric Medicine
DX: J44.1 Chronic obstructive pulmonary disease with (acute) exacerbation (principal); J96.01 Acute respiratory failure with hypoxia; F33.9 Major depressive disorder, recurrent, unspecified; I25.2 Old myocardial infarction; I27.20 Pulmonary hypertension, unspecified; I73.9 Peripheral vascular disease, unspecified; J84.10 Pulmonary fibrosis, unspecified; T38.0X5A Adverse effect of glucocorticoids and synthetic analogues, initial encounter; Z79.02 Long term (current) use of antithrombotics/antiplatelets; Z79.82 Long term (current) use of aspirin; Z79.899 Other long term (current) drug therapy; I25.10 Atherosclerotic heart disease of native coronary artery without angina pectoris; D69.6 Thrombocytopenia, unspecified; E78.5 Hyperlipidemia, unspecified; I69.311 Memory deficit following cerebral infarction; F01.50 Vascular dementia, unspecified severity, without behavioral disturbance, psychotic disturbance, mood disturbance, and anxiety; F17.210 Nicotine dependence, cigarettes, uncomplicated; F41.9 Anxiety disorder, unspecified; I10 Essential (primary) hypertension; Z80.7 Family history of other malignant neoplasms of lymphoid, hematopoietic and related tissues; Z85.3 Personal history of malignant neoplasm of breast; Z86.718 Personal history of other venous thrombosis and embolism; Z89.421 Acquired absence of other right toe(s); Z90.49 Acquired absence of other specified parts of digestive tract; Z95.820 Peripheral vascular angioplasty status with implants and grafts; Z79.891 Long term (current) use of opiate analgesic; Z88.8 Allergy status to other drugs, medicaments and biological substances; Z91.041 Radiographic dye allergy status
CPT/HCPCS: 36415; 71046; 71250; 80048; 80053; 81003; 82103; 82104; 82550; 82553; 82785; 82803; 83036; 83735; 83880; 84484; 85025; 85027; 85610; 85730; 86001; 86003; 86606; 86609; 87040; 87070; 87205; 93005; 93306; 94640; 94667; 94760; 96361; 96365; 96375; 99291